=== PATIENT | female | born 1945 | race Caucasian/White ===

== ENCOUNTER 2017-01-13 21:50 | Emergency (ER) | payer MEDICARE ==
[2017-01-13 22:00] LABS: Glucose,Whole Blood 102 mg/dL (75-99)
[2017-01-13 22:08] VITALS: RESP 18
[2017-01-13 22:45] LABS: Basophils % (A) 0 %; CH 31.7; CHCM 32.2; Eosinophils # (A) 0.2 k/uL (0-0.7); Eosinophils % (A) 3 %; HCT 40.3 % (34.0-46.0); HDW 2.31; HGB 12.9 gm/dL (11.4-16.0); Luc # (Auto) 0.12; Luc % (Auto) 1; Lymphocytes # (A) 1.4 k/uL (1.0-4.8); Lymphocytes % (A) 16 %; MCH 31.5 pg (25.0-35.0); MCHC 31.9 g/dL (31.0-37.0); MCV 98.7 fL (80.0-100.0); Mean Platelet Volume 7.4; Monocytes # (A) 0.7 k/uL (0-1.0); Monocytes % (A) 8 %; Neutrophils # (A) 6.2 k/uL (1.3-7.7); Neutrophils % (A) 71 %; RBC 4.09 m/uL (3.80-5.40); RDW 13.6 % (11.5-15.5); WBC 8.7 k/uL (3.8-10.6); WBC (Perox) 8.93
[2017-01-13 22:55] LABS: ALT 32 U/L (9-52); AST 30 U/L (14-36); Alkaline Phosphatase 109 U/L (38-126); Amylase 33 U/L (30-110); Anion Gap 14 mmol/L; Blood Urea Nitrogen 17 mg/dL (7-17); Calcium 8.9 mg/dL (8.4-10.2); Carbon Dioxide 22 mmol/L (22-30); Chloride 97 mmol/L (98-107); Glucose 72 mg/dL (74-99); Magnesium 1.2 mg/dL (1.6-2.3); Non-African American GFR(MDRD) >60 (>60 ml/min/1.73 sqM); Potassium 3.8 mmol/L (3.5-5.1); Sodium 133 mmol/L (137-145); Total Bilirubin 0.4 mg/dL (0.2-1.3); Total Protein 6.5 g/dL (6.3-8.2)
[2017-01-13 22:58] LABS: Glucose,Whole Blood 73 mg/dL (75-99)
[2017-01-13 23:40] LABS: Glucose,Whole Blood 102 mg/dL (75-99)
--- NOTE | 2017-01-13 23:40 | ED ---
General Adult HPI - General Chief complaint: Recheck/Abnormal Lab/Rx Stated complaint: Hypoglycemia Time Seen by Provider: 01/13/17 22:10 Source: patient, EMS, RN notes reviewed Mode of arrival: EMS Limitations: no limitations - History of Present Illness Initial comments: This a 71-year-old female presents emergency via EMS chief complaint CVA. Patient is here with family states that they were driving the patient seemed to fall sleep but was unresponsive at that time. Patient was found to have a blood sugar of 40 patient was given an amp of dextrose at that time and patient became responsive. Patient states that she has no complaints at this time. She denies chest pain, shortness breath, fever, chills, headache or dizziness. Patient states she does not take any medications for diabetes at this time. Patient denies any new prescriptions states that she did not take any pills that she normally does not take. Patient states that she has had low blood sugar in the past but never to this extent. - Related Data Home Medications Medication Instructions Recorded Confirmed ALPRAZolam [Xanax] 0.25 mg PO TID 07/30/13 08/11/15 PARoxetine [Paxil] 20 mg PO DAILY 07/30/13 08/11/15 Ranitidine HCl 150 mg PO HS PRN 07/30/13 08/11/15 Simvastatin [Zocor] 60 mg PO DAILY 07/30/13 08/11/15 Aspirin EC [Ecotrin Low Dose] 81 mg PO DAILY 08/11/15 08/11/15 Cyclobenzaprine [Flexeril] 10 mg PO BID PRN 08/11/15 08/11/15 Docusate [Colace] 100 mg PO BID PRN 08/11/15 08/11/15 Folic Acid 0.8 mg PO DAILY 08/11/15 08/11/15 Hydrochlorothiazide 12.5 mg PO BID 08/11/15 08/11/15 Losartan [Cozaar] 25 mg PO DAILY 08/11/15 08/11/15 Metoprolol Tartrate [Lopressor] 25 mg PO BID 08/11/15 08/11/15 Ondansetron HCl [Zofran] 8 mg PO BID PRN 08/11/15 08/11/15 Potassium Chloride [Klor-Con 20] 20 meq PO DAILY 08/11/15 08/11/15 Prochlorperazine [Compazine] 10 mg PO TID 08/11/15 08/11/15 Ubidecarenone [Co Q-10] 100 mg PO DAILY 08/11/15 08/11/15 predniSONE 50 mg PO DAILY 08/11/15 08/11/15 traMADol HCL [Ultram] 50 mg PO BID PRN 08/11/15 08/11/15 Previous Rx's Medication Instructions Recorded Levofloxacin [Levaquin] 750 mg PO DAILY #7 tab 08/15/15 Allergies Allergy/AdvReac Type Severity Reaction Status Date / Time No Known Allergies Allergy Verified 08/11/15 21:36 Review of Systems ROS Statement: Those systems with pertinent positive or pertinent negative responses have been documented in the HPI. ROS Other: All systems not noted in ROS Statement are negative. Past Medical History Past Medical History: Cancer Additional Past Medical History / Comment(s): Hx diverticulitis Hx. arthritis Hx rt kidney cancer 2011, B-cell lymphoma, DVT- current. History of Any Multi-Drug Resistant Organisms: None Reported Past Surgical History: Hernia Repair, Hysterectomy Additional Past Surgical History / Comment(s): Hx Gastric bypass (1991) Hx left knee arthroscopy Hx cataracts bilat removed Past Anesthesia/Blood Transfusion Reactions: No Reported Reaction Past Psychological History: No Psychological Hx Reported, Anxiety, Depression Smoking Status: Never smoker Past Alcohol Use History: None Reported, Rare Past Drug Use History: None Reported General Exam Limitations: no limitations General appearance: alert, in no apparent distress Head exam: Present: atraumatic, normocephalic, normal inspection Eye exam: Present: normal appearance, PERRL, EOMI. Absent: scleral icterus, conjunctival injection, periorbital swelling ENT exam: Present: normal exam, normal oropharynx, mucous membranes moist, TM's normal bilaterally Neck exam: Present: normal inspection, full ROM. Absent: tenderness, meningismus, lymphadenopathy Respiratory exam: Present: normal lung sounds bilaterally. Absent: respiratory distress, wheezes, rales, rhonchi, stridor Cardiovascular Exam: Present: regular rate, normal rhythm, normal heart sounds. Absent: systolic murmur, diastolic murmur, rubs, gallop, clicks GI/Abdominal exam: Present: soft, normal bowel sounds. Absent: distended, tenderness, guarding, rebound, rigid Neurological exam: Present: alert, oriented X3, CN II-XII intact, reflexes normal. Absent: motor sensory deficit Psychiatric exam: Present: normal affect, normal mood Skin exam: Present: warm, dry, intact, normal color. Absent: rash Course Vital Signs 01/13/17 01/13/17 01/13/17 22:00 22:42 23:12 Temperature 97.6 F Pulse Rate 75 77 75 Respiratory 18 18 18 Rate Blood Pressure 184/84 178/80 184/81 O2 Sat by Pulse 100 100 99 Oximetry - Reevaluation(s) Reevaluation #1: 01/13/17 23:47 Patient family updated result at this time. She states she does feel improved. Did advised patient I will continue monitor and recheck her blood sugar. EKG Findings - EKG Comments: EKG Findings:: EKG performed at 22:33 normal sinus rhythm with rate of 72 QRS duration 88 QT/QTc 458/501 Medical Decision Making - Medical Decision Making 71-year-old female presented for hypoglycemic event. Patient has improved patient's blood sugar has stabilized. Family in the room states that he's had this issue because she does not eat and she did admit that she only ate a yogurt this morning and ate a small taco at + 4:30. Patient ate food here. patient's lab reviewed EKG reviewed. - Lab Data Result diagrams: 01/13/17 22:15 01/13/17 22:15 Lab Results 01/13/17 01/13/17 01/13/17 Range/Units 21:56 22:15 22:15 WBC 8.7 (3.8-10.6) k/uL RBC 4.09 (3.80-5.40) m/uL Hgb 12.9 (11.4-16.0) gm/dL Hct 40.3 (34.0-46.0) % MCV 98.7 (80.0-100.0) fL MCH 31.5 (25.0-35.0) pg MCHC 31.9 (31.0-37.0) g/dL RDW 13.6 (11.5-15.5) % Plt Count 242 (150-450) k/uL Neutrophils % 71 % Lymphocytes % 16 % Monocytes % 8 % Eosinophils % 3 % Basophils % 0 % Neutrophils # 6.2 (1.3-7.7) k/uL Lymphocytes # 1.4 (1.0-4.8) k/uL Monocytes # 0.7 (0-1.0) k/uL Eosinophils # 0.2 (0-0.7) k/uL Basophils # 0.0 (0-0.2) k/uL Sodium 133 L (137-145) mmol/L Potassium 3.8 (3.5-5.1) mmol/L Chloride 97 L (98-107) mmol/L Carbon Dioxide 22 (22-30) mmol/L Anion Gap 14 mmol/L BUN 17 (7-17) mg/dL Creatinine 0.90 (0.52-1.04) mg/dL Est GFR (MDRD) Af Amer >60 (>60 ml/min/1.73 sqM) Est GFR (MDRD) Non-Af >60 (>60 ml/min/1.73 sqM) Glucose 72 L (74-99) mg/dL POC Glucose (mg/dL) 102 H (75-99) mg/dL POC Glu Video Intern ID Doris Smith Calcium 8.9 (8.4-10.2) mg/dL Magnesium 1.2 L (1.6-2.3) mg/dL Total Bilirubin 0.4 (0.2-1.3) mg/dL AST 30 (14-36) U/L ALT 32 (9-52) U/L Alkaline Phosphatase 109 (38-126) U/L Troponin I (0.000-0.034) ng/mL Total Protein 6.5 (6.3-8.2) g/dL Albumin 4.0 (3.5-5.0) g/dL Amylase 33 (30-110) U/L Lipase 115 (23-300) U/L 01/13/17 01/13/17 01/13/17 Range/Units 22:15 22:54 23:36 WBC (3.8-10.6) k/uL RBC (3.80-5.40) m/uL Hgb (11.4-16.0) gm/dL Hct (34.0-46.0) % MCV (80.0-100.0) fL MCH (25.0-35.0) pg MCHC (31.0-37.0) g/dL RDW (11.5-15.5) % Plt Count (150-450) k/uL Neutrophils % % Lymphocytes % % Monocytes % % Eosinophils % % Basophils % % Neutrophils # (1.3-7.7) k/uL Lymphocytes # (1.0-4.8) k/uL Monocytes # (0-1.0) k/uL Eosinophils # (0-0.7) k/uL Basophils # (0-0.2) k/uL Sodium (137-145) mmol/L Potassium (3.5-5.1) mmol/L Chloride (98-107) mmol/L Carbon Dioxide (22-30) mmol/L Anion Gap mmol/L BUN (7-17) mg/dL Creatinine (0.52-1.04) mg/dL Est GFR (MDRD) Af Amer (>60 ml/min/1.73 sqM) Est GFR (MDRD) Non-Af (>60 ml/min/1.73 sqM) Glucose (74-99) mg/dL POC Glucose (mg/dL) 73 L 102 H (75-99) mg/dL POC Glu Video Intern Doris Rivera Tiffany Calcium (8.4-10.2) mg/dL Magnesium (1.6-2.3) mg/dL Total Bilirubin (0.2-1.3) mg/dL AST (14-36) U/L ALT (9-52) U/L Alkaline Phosphatase (38-126) U/L Troponin I <0.012 (0.000-0.034) ng/mL Total Protein (6.3-8.2) g/dL Albumin (3.5-5.0) g/dL Amylase (30-110) U/L Lipase (23-300) U/L 01/14/17 Range/Units 00:03 WBC (3.8-10.6) k/uL RBC (3.80-5.40) m/uL Hgb (11.4-16.0) gm/dL Hct (34.0-46.0) % MCV (80.0-100.0) fL MCH (25.0-35.0) pg MCHC (31.0-37.0) g/dL RDW (11.5-15.5) % Plt Count (150-450) k/uL Neutrophils % % Lymphocytes % % Monocytes % % Eosinophils % % Basophils % % Neutrophils # (1.3-7.7) k/uL Lymphocytes # (1.0-4.8) k/uL Monocytes # (0-1.0) k/uL Eosinophils # (0-0.7) k/uL Basophils # (0-0.2) k/uL Sodium (137-145) mmol/L Potassium (3.5-5.1) mmol/L Chloride (98-107) mmol/L Carbon Dioxide (22-30) mmol/L Anion Gap mmol/L BUN (7-17) mg/dL Creatinine (0.52-1.04) mg/dL Est GFR (MDRD) Af Amer (>60 ml/min/1.73 sqM) Est GFR (MDRD) Non-Af (>60 ml/min/1.73 sqM) Glucose (74-99) mg/dL POC Glucose (mg/dL) 115 H (75-99) mg/dL POC Glu Video Intern ID Syeda Perez Calcium (8.4-10.2) mg/dL Magnesium (1.6-2.3) mg/dL Total Bilirubin (0.2-1.3) mg/dL AST (14-36) U/L ALT (9-52) U/L Alkaline Phosphatase (38-126) U/L Troponin I (0.000-0.034) ng/mL Total Protein (6.3-8.2) g/dL Albumin (3.5-5.0) g/dL Amylase (30-110) U/L Lipase (23-300) U/L Disposition Clinical Impression: Hypoglycemia Disposition: HOME SELF-CARE Condition: Stable Instructions: Non-diabetic Hypoglycemia (ED) Additional Instructions: Please return to the Emergency Department if symptoms worsen or any other concerns. Referrals: Kandy Pires MD [Primary Care Provider] - 1-2 days Time of Disposition: 00:13
[2017-01-14 00:04] LABS: Glucose,Whole Blood 115 mg/dL (75-99)
[2017-01-14 00:20] VITALS: BP 159/70; PULSE 81; TEMP 97.8
== END 2017-01-14 00:29 | disposition home or self-care (01) ==
LOC: EC 21:50
DX: E16.2 Hypoglycemia, unspecified (principal); F32.9 Major depressive disorder, single episode, unspecified; F41.9 Anxiety disorder, unspecified; Z85.528 Personal history of other malignant neoplasm of kidney; Z85.72 Personal history of non-Hodgkin lymphomas; Z86.718 Personal history of other venous thrombosis and embolism; Z79.82 Long term (current) use of aspirin; Z79.52 Long term (current) use of systemic steroids; Z79.899 Other long term (current) drug therapy
CPT/HCPCS: 36415; 80053; 82150; 83690; 83735; 84484; 85025; 93005; 99285

== ENCOUNTER 2019-04-29 14:06 | Observation (INO) | payer MEDICARE ==
[2019-04-29 14:44] LABS: Glucose,Whole Blood 79 mg/dL (75-99)
--- NOTE | 2019-04-29 14:56 | ED ---
General Adult HPI - General Chief complaint: Recheck/Abnormal Lab/Rx Stated complaint: diabetic issue Time Seen by Provider: 04/29/19 14:43 Source: patient, EMS Mode of arrival: EMS Limitations: no limitations - History of Present Illness Initial comments: 74-year-old female that presents to emergency room today for evaluation after syncopal episode. Patient was sitting on her couch at home looking at iPad when family she had passed out. They called 911. Patient reports that she has had this happen one time in the past about 3 years ago. She does not have diagnosis of diabetes. She does report that she had oatmeal for breakfast this morning a round 9:00 and then had to [employer] 11:00. She reports that the last time that this happened she had a large food bolus and then a few hours later had a syncopal episode and hypoglycemia. Patient reports that she was checking her blood glucose levels for "a long time" after the syncopal episode 3 years ago, however has not been checking her sugars. She denies any headache or injury. Dizziness or lightheadedness. No vision changes or speech changes. Denies any nausea vomiting diarrhea or constipation. No urinary symptoms. No other complaints. The daughter in the room does relate that she witnessed the syncopal event. The patient and seemed confused she was cussing at her tablet and then she had a syncopal event. She was diaphoretic. There was concern for the history of the hypoglycemic event they checked her blood glucose level and it was 30. Daughter also relates that the patient was recently seen a railroad hand and had medication adjustment. She does take Lasix. She has a history of a nephrectomy in the past. She does not know her baseline kidney function. - Related Data Home Medications Medication Instructions Recorded Confirmed ALPRAZolam [Xanax] 0.25 mg PO TID 07/30/13 04/29/19 PARoxetine [Paxil] 20 mg PO HS 07/30/13 04/29/19 Simvastatin [Zocor] 40 mg PO DAILY 07/30/13 04/29/19 Cyclobenzaprine [Flexeril] 10 mg PO BID PRN 08/11/15 04/29/19 Docusate [Colace] 100 mg PO BID PRN 08/11/15 04/29/19 Folic Acid 0.8 mg PO DAILY 08/11/15 04/29/19 traMADol HCL [Ultram] 50 mg PO BID PRN 08/11/15 04/29/19 Calcium Carbonate/Vitamin D3 1 tab PO DAILY 04/29/19 04/29/19 [Calcium 500-Vit D3 600 Tablet] Carvedilol 12.5 mg PO BID PRN 04/29/19 04/29/19 Furosemide [Lasix] 40 mg PO DAILY PRN 04/29/19 04/29/19 Lisinopril [Zestril] 5 mg PO DAILY 04/29/19 04/29/19 Multivitamins, Thera [Multivitamin 1 tab PO DAILY 04/29/19 04/29/19 (formulary)] Vitamin B Complex 1 tab PO DAILY 04/29/19 04/29/19 amLODIPine [Norvasc] 5 mg PO DAILY 04/29/19 04/29/19 Allergies Allergy/AdvReac Type Severity Reaction Status Date / Time No Known Allergies Allergy Verified 04/29/19 20:13 Review of Systems ROS Statement: Those systems with pertinent positive or pertinent negative responses have been documented in the HPI. ROS Other: All systems not noted in ROS Statement are negative. Past Medical History Past Medical History: Cancer Additional Past Medical History / Comment(s): Hx diverticulitis Hx. arthritis Hx rt kidney cancer 2011, B-cell lymphoma, DVT- current. History of Any Multi-Drug Resistant Organisms: None Reported Past Surgical History: Hernia Repair, Hysterectomy Additional Past Surgical History / Comment(s): Hx Gastric bypass (1991) Hx left knee arthroscopy Hx cataracts bilat removed Past Anesthesia/Blood Transfusion Reactions: No Reported Reaction Past Psychological History: Anxiety, Depression Smoking Status: Never smoker Past Alcohol Use History: Rare Past Drug Use History: None Reported General Exam Limitations: no limitations General appearance: alert, in no apparent distress Head exam: Present: atraumatic, normocephalic Eye exam: Present: normal appearance ENT exam: Present: normal exam, normal oropharynx Neck exam: Present: normal inspection Respiratory exam: Present: normal lung sounds bilaterally Cardiovascular Exam: Present: regular rate, normal rhythm, normal heart sounds GI/Abdominal exam: Present: soft, normal bowel sounds Extremities exam: Present: normal inspection, full ROM Back exam: Present: normal inspection Neurological exam: Present: alert, altered, oriented X3 Psychiatric exam: Present: normal affect, normal mood Skin exam: Present: warm, dry, intact Course Vital Signs 04/29/19 04/29/19 04/29/19 14:12 19:48 20:00 Temperature 96.8 F L 97.6 F 97.8 F Pulse Rate 73 92 Pulse Rate [ 94 Pulse Oximetery ] Respiratory 18 17 18 Rate Blood Pressure 129/67 154/83 Blood Pressure 139/88 [Left Arm] O2 Sat by Pulse 100 99 100 Oximetry - Reevaluation(s) Reevaluation #1: 04/30/2019 patient was resting in no distress. Discussed the results thus far, waiting for creatinine. Reevaluation #2: 04/29/2019 patient resting in no distress. I discussed all results. I advised that I would like to admit her to the hospital secondary to syncopal event. I did discuss with the patient's baseline creatinine, she is not aware of what her creatinine is baseline. She does state that she has seen a refrigerator repairman in the past and been told that she has stage I renal disease. She verbalized understanding and agreement. Reevaluation #3: 04/29/2019 I did discuss with patient that she has admitted the hospital. Medical Decision Making - Medical Decision Making 74-year-old female presents the emergency room today for evaluation of syncopal event. Patient was found to be hypoglycemic. She had a blood glucose level and was found to be 30 by the family. She was subsequently brought to the emergency room. She was given D10 on the way to the emergency room and she is feeling improved on arrival. She did have a sandwich. She was feeling improved after this. Patient has no history of diabetes, she did have a hypoglycemic episode about 3 years ago. Patient has a history of a nephrectomy on the right. Patient was recently prescribed Lasix by cardiology. She also had her medications adjusted, she's been taking Coreg which is new to her. Patient reports history of stage I renal disease, however today her creatinine was found to be 2.75 and there is nothing to compare this to. Secondary to the syncopal event with hypoglycemia, hyperglycemia likely causing the syncopal event patient will be admitted to the hospital. No history of diabetes, will continue to monitor blood glucose levels here in the hospital. - Lab Data Result diagrams: 04/29/19 15:20 04/29/19 15:20 Lab Results 04/29/19 04/29/1920 Range/Units 14:43 15:20 15:20 WBC 5.6 (3.8-10.6) k/uL RBC 3.80 (3.80-5.40) m/uL Hgb 11.2 L (11.4-16.0) gm/dL Hct 35.9 (34.0-46.0) % MCV 94.5 (80.0-100.0) fL MCH 29.5 (25.0-35.0) pg MCHC 31.2 (31.0-37.0) g/dL RDW 12.9 (11.5-15.5) % Plt Count 318 (150-450) k/uL Neutrophils % 68 % Lymphocytes % 19 % Monocytes % 6 % Eosinophils % 4 % Basophils % 0 % Neutrophils # 3.8 (1.3-7.7) k/uL Lymphocytes # 1.0 (1.0-4.8) k/uL Monocytes # 0.3 (0-1.0) k/uL Eosinophils # 0.2 (0-0.7) k/uL Basophils # 0.0 (0-0.2) k/uL Sodium 138 (137-145) mmol/L Potassium 4.1 (3.5-5.1) mmol/L Chloride 106 (98-107) mmol/L Carbon Dioxide 23 (22-30) mmol/L Anion Gap 9 mmol/L BUN 61 H (7-17) mg/dL Creatinine 2.75 H (0.52-1.04) mg/dL Est GFR (CKD-EPI)AfAm 19 (>60 ml/min/1.73 sqM) Est GFR (CKD-EPI)NonAf 16 (>60 ml/min/1.73 sqM) Glucose 105 H (74-99) mg/dL POC Glucose (mg/dL) 79 (75-99) mg/dL POC Glu Maintenance Instructor ID Shreya Ayala Calcium 8.4 (8.4-10.2) mg/dL Troponin I (0.000-0.034) ng/mL Urine Color Urine Appearance (Clear) Urine pH (5.0-8.0) Ur Specific [place] (1.001-1.035) Urine Protein (Negative) Urine Glucose (UA) (Negative) Urine Ketones (Negative) Urine Blood (Negative) Urine Nitrite (Negative) Urine Bilirubin (Negative) Urine Urobilinogen (<2.0) mg/dL Ur Leukocyte Esterase (Negative) 04/29/19 04/29/19 04/29/19 Range/Units 15:20 15:20 16:48 WBC (3.8-10.6) k/uL RBC (3.80-5.40) m/uL Hgb (11.4-16.0) gm/dL Hct (34.0-46.0) % MCV (80.0-100.0) fL MCH (25.0-35.0) pg MCHC (31.0-37.0) g/dL RDW (11.5-15.5) % Plt Count (150-450) k/uL Neutrophils % % Lymphocytes % % Monocytes % % Eosinophils % % Basophils % % Neutrophils # (1.3-7.7) k/uL Lymphocytes # (1.0-4.8) k/uL Monocytes # (0-1.0) k/uL Eosinophils # (0-0.7) k/uL Basophils # (0-0.2) k/uL Sodium (137-145) mmol/L Potassium (3.5-5.1) mmol/L Chloride (98-107) mmol/L Carbon Dioxide (22-30) mmol/L Anion Gap mmol/L BUN (7-17) mg/dL Creatinine (0.52-1.04) mg/dL Est GFR (CKD-EPI)AfAm (>60 ml/min/1.73 sqM) Est GFR (CKD-EPI)NonAf (>60 ml/min/1.73 sqM) Glucose (74-99) mg/dL POC Glucose (mg/dL) 116 H (75-99) mg/dL POC Glu Maintenance Instructor ID Sandra Monson Calcium (8.4-10.2) mg/dL Troponin I <0.012 (0.000-0.034) ng/mL Urine Color Light Yellow Urine Appearance Clear (Clear) Urine pH 5.0 (5.0-8.0) Ur Specific [place] 1.008 (1.001-1.035) Urine Protein Negative (Negative) Urine Glucose (UA) Negative (Negative) Urine Ketones Negative (Negative) Urine Blood Negative (Negative) Urine Nitrite Negative (Negative) Urine Bilirubin Negative (Negative) Urine Urobilinogen <2.0 (<2.0) mg/dL Ur Leukocyte Esterase Negative (Negative) 04/29/19 Range/Units 17:01 WBC (3.8-10.6) k/uL RBC (3.80-5.40) m/uL Hgb (11.4-16.0) gm/dL Hct (34.0-46.0) % MCV (80.0-100.0) fL MCH (25.0-35.0) pg MCHC (31.0-37.0) g/dL RDW (11.5-15.5) % Plt Count (150-450) k/uL Neutrophils % % Lymphocytes % % Monocytes % % Eosinophils % % Basophils % % Neutrophils # (1.3-7.7) k/uL Lymphocytes # (1.0-4.8) k/uL Monocytes # (0-1.0) k/uL Eosinophils # (0-0.7) k/uL Basophils # (0-0.2) k/uL Sodium (137-145) mmol/L Potassium (3.5-5.1) mmol/L Chloride (98-107) mmol/L Carbon Dioxide (22-30) mmol/L Anion Gap mmol/L BUN (7-17) mg/dL Creatinine (0.52-1.04) mg/dL Est GFR (CKD-EPI)AfAm (>60 ml/min/1.73 sqM) Est GFR (CKD-EPI)NonAf (>60 ml/min/1.73 sqM) Glucose (74-99) mg/dL POC Glucose (mg/dL) 128 H (75-99) mg/dL POC Glu Maintenance Instructor ID Shreya Ayala Calcium (8.4-10.2) mg/dL Troponin I (0.000-0.034) ng/mL Urine Color Urine Appearance (Clear) Urine pH (5.0-8.0) Ur Specific [place] (1.001-1.035) Urine Protein (Negative) Urine Glucose (UA) (Negative) Urine Ketones (Negative) Urine Blood (Negative) Urine Nitrite (Negative) Urine Bilirubin (Negative) Urine Urobilinogen (<2.0) mg/dL Ur Leukocyte Esterase (Negative) - EKG Data EKG shows normal: sinus rhythm EKG Comments: EKG completed at 1550. Heart rate 80. Normal sinus rhythm with first-degree block. [place] 222 QRS 88 QT/QTc 422/486, normal axis. No ST elevation or depression noted. Disposition Clinical Impression: Syncope, Renal failure, acute, Hypoglycemia Disposition: ADMITTED IP TO THIS HOSP Condition: Stable Is patient prescribed a controlled substance at d/c from ED?: No When asked, does pt state using other controlled substances?: No
[2019-04-29 15:24] LABS: Glucose,Whole Blood 116 mg/dL (75-99)
[2019-04-29 15:32] LABS: Basophils % (A) 0 %; Eosinophils # (A) 0.2 k/uL (0-0.7); Eosinophils % (A) 4 %; HCT 35.9 % (34.0-46.0); HGB 11.2 gm/dL (11.4-16.0); Lymphocytes % (A) 19 %; MCH 29.5 pg (25.0-35.0); MCHC 31.2 g/dL (31.0-37.0); MCV 94.5 fL (80.0-100.0); Mean Platelet Volume 7.1; Monocytes # (A) 0.3 k/uL (0-1.0); Monocytes % (A) 6 %; Neutrophils # (A) 3.8 k/uL (1.3-7.7); Neutrophils % (A) 68 %; Platelet Count 318 k/uL (150-450); RDW 12.9 % (11.5-15.5); WBC 5.6 k/uL (3.8-10.6)
[2019-04-29 15:42] LABS: Calcium 8.4 mg/dL (8.4-10.2); Potassium 4.1 mmol/L (3.5-5.1)
[2019-04-29 17:01] LABS: Appearance,Urine Clear (Clear); Bilirubin,Urine Negative (Negative); Blood,Urine Negative (Negative); Color,Urine Light Yellow; Glucose,Urine (UA) Negative (Negative); Ketones,Urine Negative (Negative); Leukocyte Esterase,Urine Negative (Negative); Nitrite,Urine Negative (Negative); Protein,Urine Negative (Negative); Specific Gravity,Urine 1.008 (1.001-1.035); Urobilinogen,Urine <2.0 mg/dL (<2.0)
[2019-04-29 17:03] LABS: Glucose,Whole Blood 128 mg/dL (75-99)
[2019-04-29] MEDS ORDERED: ONDANSETRON 4 MG/2 ML VIAL IVP PRN (18:06)
[2019-04-29] MEDS ORDERED: NALOXONE 0.4 MG/ML 1 ML VIAL IV PRN (18:06)
[2019-04-29] MEDS ORDERED: SODIUM CHLORIDE 0.9% 1,000 ML IV SCH (18:15)
[2019-04-29] MEDS ORDERED: traMADol 50 MG TAB PO PRN (21:44)
[2019-04-29] MEDS ORDERED: CARVEDILOL 12.5 MG TAB PO PRN (21:44)
[2019-04-29] MEDS ORDERED: DOCUSATE 100 MG CAP PO PRN (21:44)
[2019-04-29] MEDS ORDERED: CYCLOBENZAPRINE 10 MG TAB PO PRN (21:44)
[2019-04-29 22:12] LABS: Glucose,Whole Blood 127 mg/dL (75-99)
[2019-04-29] MEDS: ALPRAZolam 0.25 MG TAB PO SCH (22:25)
[2019-04-29] MEDS: PARoxetine 20 MG TAB PO SCH (22:25)
[2019-04-29] MEDS: amLODIPine 5 MG TAB PO SCH (22:26)
[2019-04-30 06:21] LABS: Calcium 8.6 mg/dL (8.4-10.2); Potassium 4.6 mmol/L (3.5-5.1)
[2019-04-30 06:34] LABS: Glucose,Whole Blood 81 mg/dL (75-99)
[2019-04-30] MEDS ORDERED: NON FORMULARY DRUG (Vitamin B Complex [Vitamin B Complex] 1 TAB) PO SCH (09:00)
[2019-04-30] MEDS: ATORVASTATIN 20 MG TAB PO SCH (09:40)
[2019-04-30] MEDS: amLODIPine 5 MG TAB PO SCH (09:40)
[2019-04-30] MEDS: MULTIVITAMINS, THERA 1 EACH TAB PO SCH (09:40)
[2019-04-30] MEDS: ALPRAZolam 0.25 MG TAB PO SCH ×3 (09:40→22:33)
[2019-04-30] MEDS: CALCIUM CARB-VIT D 500MG-200UN 1 EACH TAB PO SCH (09:40)
[2019-04-30] MEDS: FOLIC ACID 1 MG TAB PO SCH (09:41)
[2019-04-30 11:36] LABS: Glucose,Whole Blood 75 mg/dL (75-99)
[2019-04-30] MEDS: SODIUM CHLORIDE 0.9% 1,000 ML IV SCH ×2 (12:04→22:34)
--- NOTE | 2019-04-30 13:29 | P.HPIM ---
History of Present Illness 74-year-old female came in after a syncopal episode patient was sitting and looking at her eye pad and passed out after that patient denied any fever chills patient denied any chest pain, EKG showed some nonspecific ST-T wave changes in the septal leads. Echocardiogram will be obtained. Patient denied any history of any start failure. Patient appears to be hypovolemic patient had elevated serum creatinine of 2.8 to patient has a E kidney one of the kidney was removed because of her kidney cancer. Patient baseline creatinine appears to be around 2. Patient is on lisinopril which will be held patient was started on IV flui ds. Patient is also found to be hypoglycemic unsure of the exact etiology a lot and a C-peptide level insulin level, cortisol level and the TSH. Review of Systems REVIEW OF SYSTEMS: CONSTITUTIONAL: No fever, no malaise, no fatigue. HEENT: No recent visual problems or hearing problems. Denied any sore throat. CARDIOVASCULAR: No chest pain, orthopnea, PND, no palpitations, PULMONARY: No shortness of breath, no cough, no hemoptysis. GASTROINTESTINAL: No diarrhea, no nausea, no vomiting, no abdominal pain. NEUROLOGICAL: No headaches, no weakness, no numbness. HEMATOLOGICAL: Denies any bleeding or petechiae. GENITOURINARY: Denies any burning micturition, frequency, or urgency. MUSCULOSKELETAL/RHEUMATOLOGICAL: Denies any joint pain, swelling, or any muscle pain. ENDOCRINE: Denies any polyuria or polydipsia. The rest of the 14-point review of systems is negative. Past Medical History Past Medical History: Cancer Additional Past Medical History / Comment(s): Hx diverticulitis Hx. arthritis Hx rt kidney cancer 2011, B-cell lymphoma, DVT- current. History of Any Multi-Drug Resistant Organisms: None Reported Past Surgical History: Hernia Repair, Hysterectomy Additional Past Surgical History / Comment(s): Hx Gastric bypass (1991) Hx left knee arthroscopy Hx cataracts bilat removed Past Anesthesia/Blood Transfusion Reactions: No Reported Reaction Past Psychological History: Anxiety, Depression Smoking Status: Never smoker Past Alcohol Use History: Rare Past Drug Use History: None Reported Medications and Allergies Home Medications Medication Instructions Recorded Confirmed Type ALPRAZolam [Xanax] 0.25 mg PO TID 07/30/13 04/29/19 History PARoxetine [Paxil] 20 mg PO HS 07/30/13 04/29/19 History Simvastatin [Zocor] 40 mg PO DAILY 07/30/13 04/29/19 History Cyclobenzaprine [Flexeril] 10 mg PO BID PRN 08/11/15 04/29/19 History Docusate [Colace] 100 mg PO BID PRN 08/11/15 04/29/19 History Folic Acid 0.8 mg PO DAILY 08/11/15 04/29/19 History traMADol HCL [Ultram] 50 mg PO BID PRN 08/11/15 04/29/19 History Calcium Carbonate/Vitamin D3 1 tab PO DAILY 04/29/19 04/29/19 History [Calcium 500-Vit D3 600 Tablet] Carvedilol 12.5 mg PO BID 04/29/19 04/29/19 History Furosemide [Lasix] 40 mg PO DAILY PRN 04/29/19 04/29/19 History Lisinopril [Zestril] 5 mg PO DAILY 04/29/19 04/29/19 History Multivitamins, Thera [Multivitamin 1 tab PO DAILY 04/29/19 04/29/19 History (formulary)] Vitamin B Complex 1 tab PO DAILY 04/29/19 04/29/19 History amLODIPine [Norvasc] 5 mg PO DAILY 04/29/19 04/29/19 History Metoprolol Tartrate [Lopressor] 50 mg PO BID 04/30/19 04/30/19 History Allergies Allergy/AdvReac Type Severity Reaction Status Date / Time No Known Allergies Allergy Verified 04/29/19 20:13 Physical Exam Vitals: Vital Signs Temp Pulse Pulse Resp BP BP BP 04/30/19 11:03 97.7 F 90 18 128/79 04/30/19 07:00 97.4 F L 104 H 18 163/91 04/30/19 04:00 97.7 F 86 18 118/74 04/29/19 23:53 97.7 F 81 18 132/78 04/29/19 23:48 18 04/29/19 21:10 94 18 04/29/19 20:00 97.8 F 94 18 139/88 04/29/19 19:48 97.6 F 92 17 154/83 04/29/19 14:12 96.8 F L 73 18 129/67 Pulse Ox 04/30/19 11:03 99 04/30/19 07:00 99 04/30/19 04:00 98 04/29/19 23:53 98 04/29/19 23:48 04/29/19 21:10 04/29/19 20:00 100 04/29/19 19:48 99 04/29/19 14:12 100 Intake and Output 04/29/19 04/30/19 04/30/19 22:59 06:59 14:59 Intake Total 560 Balance 560 Intake: Oral 360 Other 200 Other: Voiding Method Toilet # Voids 1 1 Weight 80.739 kg 81.647 kg PHYSICAL EXAMINATION: GENERAL: The patient is alert and oriented x3, not in any acute distress. Well developed, well nourished. HEENT: Pupils are round and equally reacting to light. EOMI. No scleral icterus. No conjunctival pallor. Normocephalic, atraumatic. No pharyngeal erythema. No thyromegaly. CARDIOVASCULAR: S1 and S2 present. No murmurs, rubs, or gallops. PULMONARY: Chest is clear to auscultation, no wheezing or crackles. ABDOMEN: Soft, nontender, nondistended, normoactive bowel sounds. No palpable organomegaly. MUSCULOSKELETAL: No joint swelling or deformity. EXTREMITIES: No cyanosis, clubbing, or pedal edema. NEUROLOGICAL: Gross neurological examination did not reveal any focal deficits. SKIN: No rashes. Results CBC & Chem 7: 04/29/19 15:20 04/30/19 05:37 Labs: Abnormal Lab Results - Last 24 Hours (Table) 04/29/19 04/29/19 04/29/19 Range/Units 15:20 15:20 15:20 Hgb 11.2 L (11.4-16.0) gm/dL BUN 61 H (7-17) mg/dL Creatinine 2.75 H (0.52-1.04) mg/dL Glucose 105 H (74-99) mg/dL POC Glucose (mg/dL) 116 H (75-99) mg/dL 04/29/19 04/29/19 04/30/19 Range/Units 17:01 22:07 05:37 Hgb (11.4-16.0) gm/dL BUN 60 H (7-17) mg/dL Creatinine 2.82 H (0.52-1.04) mg/dL Glucose (74-99) mg/dL POC Glucose (mg/dL) 128 H 127 H (75-99) mg/dL Thrombosis Risk Factor Assmnt - Choose All That Apply Any of the Below Risk Factors Present?: Yes Each Factor Represents 1 point: Obesity (BMI >25) Other Risk Factors: Yes Each Risk Factor Represents 2 Points: Age 61-74 years Each Risk Factor Represents 3 Points: History of DVT/PE Other congenital or acquired thrombophilia - If yes, enter type in comment: No Thrombosis Risk Factor Assessment Total Risk Factor Score: 6 Thrombosis Risk Factor Assessment Level: High Risk Assessment and Plan Plan: Syncope: Possible causes being hypovolemia leading to acute renal failure and dehydration intake, failure patient doesn't have any diarrhea. Patient's ERNESTINE inhibitor will be held patient was started on IV fluids. Echocardiogram will be obtained to rule out any valvular problems patient the also had some nonspecific ST-T wave changes, we'll look for any wall motion abnormalities on the echo. Hypoglycemia may be contributing to her symptoms although patient is not on any hypoglycemic agents will do workup for hypoglycemia as mentioned above Acute renal failure: Patient was started on IV fluids I believe patient has renal azotemia lisinopril will be held as mentioned above Possible chronic kidney disease from nephrectomy chronic kidney disease stage III -Hypoglycemia etiology is not clear workup for hypoglycemia as mentioned in the history -Renal cancer status post nephrectomy hypertension -Chronic low back -Hyperlipidemia
[2019-04-30 16:37] LABS: Glucose,Whole Blood 71 mg/dL (75-99)
[2019-04-30] MEDS: CARVEDILOL 12.5 MG TAB PO SCH (17:02)
[2019-04-30 20:39] LABS: Glucose,Whole Blood 101 mg/dL (75-99)
[2019-04-30] MEDS: PARoxetine 20 MG TAB PO SCH (22:33)
[2019-05-01] MEDS: SODIUM CHLORIDE 0.9% 1,000 ML IV SCH (03:50)
[2019-05-01 07:36] VITALS: RESP 18; TEMP 97.4
[2019-05-01] MEDS: FOLIC ACID 1 MG TAB PO SCH (08:46)
[2019-05-01] MEDS: MULTIVITAMINS, THERA 1 EACH TAB PO SCH (08:46)
[2019-05-01] MEDS: amLODIPine 5 MG TAB PO SCH (08:46)
[2019-05-01] MEDS: CARVEDILOL 12.5 MG TAB PO SCH (08:46)
[2019-05-01] MEDS: ALPRAZolam 0.25 MG TAB PO SCH (08:46)
[2019-05-01] MEDS: CALCIUM CARB-VIT D 500MG-200UN 1 EACH TAB PO SCH (08:46)
[2019-05-01] MEDS: ATORVASTATIN 20 MG TAB PO SCH (08:46)
[2019-05-01 11:11] VITALS: BP 121/80; PULSE 78
[2019-05-01 11:39] LABS: Glucose,Whole Blood 73 mg/dL (75-99)
--- NOTE | 2019-05-01 11:52 | ECHOF ---
Referral Reason:syncope MEASUREMENTS -------- HEIGHT: 152.4 cm WEIGHT: 75.8 kg BP: RVIDd: 4.0 cm (< 3.3) IVSd: 0.8 cm (0.6 - 1.1) LVIDd: 3.9 cm (3.9 - 5.3) LVPWd: 1.5 cm (0.6 - 1.1) IVSs: 1.3 cm LVIDs: 3.4 cm LVPWs: 1.4 cm LA Diam: 4.4 cm (2.7 - 3.8) LAESV Index (A-L): 30.34 ml/m Ao Diam: 3.1 cm (2.0 - 3.7) AV Cusp: 1.8 cm (1.5 - 2.6) LA Diam: 4.1 cm (2.7 - 3.8) MV EXCURSION: 20.824 mm (> 18.000) MV EF SLOPE: 109 mm/s (70 - 150) EPSS: 1.4 cm MV E Mark: 0.71 m/s MV DecT: 235 ms MV A Mark: 0.97 m/s MV E/A Ratio: 0.73 RAP: 5.00 mmHg RVSP: 25.06 mmHg FINDINGS -------- Sinus rhythm. This was a technically good study. LV size, wall thickness and systolic function are normal, with an EF greater than 55%. The left helen tricular size is normal. The diastolic filling pattern is normal for the age of the patient 15.24. The right ventricle is normal in size. The left atrium is mildly dilated. LA is midly dilated 29-33ml/m2. The right atrial size is normal. There is mild aortic valve sclerosis. Mild mitral annular calcification present. Mild mitral regurgitation is present. Mild tricuspid regurgitation present. Right ventricular systolic pressure is normal at < 35 mmHg. There is no evidence of pulmonary hypertension. There is no pulmonic regurgitation present. The aortic root size is normal. There is no pericardial effusion. CONCLUSIONS -------- 1. Sinus rhythm. 2. This was a technically good study. 3. LV size, wall thickness and systolic function are normal, with an EF greater than 55%. 4. The left ventricular size is normal. 5. The diastolic filling pattern is normal for the age of the patient 15.24 6. The right ventricle is normal in size. 7. The left atrium is mildly dilated. 8. LA is midly dilated 29-33ml/m2. 9. The right atrial size is normal. 10. There is mild aortic valve sclerosis. 11. Mild mitral annular calcification present. 12. Mild mitral regurgitation is present. 13. Mild tricuspid regurgitation present. 14. Right ventricular systolic pressure is normal at < 35 mmHg. 15. There is no evidence of pulmonary hypertension. 16. There is no pulmonic regurgitation present. 17. The aortic root size is normal. 18. There is no pericardial effusion. DRYWALL HANGER: Sadia Carr RDCS
--- NOTE | 2019-05-01 12:41 | P.DS ---
Providers Date of admission: 04/29/19 18:04 Attending physician: Jessie Foley Primary care physician: Kandy [facility] Course: 74-year-old female came in after a syncopal episode patient was sitting and looking at her eye pad and passed out after that patient denied any fever chills patient denied any chest pain, EKG showed some nonspecific ST-T wave changes in the septal leads. Echocardiogram will be obtained. Patient denied any history of any start failure. Patient appears to be hypovolemic patient had elevated serum creatinine of 2.8 to patient has a E kidney one of the kidney was removed because of her kidney cancer. Patient baseline creatinine appears to be around 2. Patient is on lisinopril which will be held patient was started on IV fluids. Patient is also found to be hypoglycemic unsure of the exact etiology a lot and a C-peptide level insulin level, cortisol level and the TSH. 05/01/2019 Patient's syncope may be related to hypoglycemia the etiology of hypoglycemia is not clear all the workup including the TSH cortisol, C-peptide level and insulin level are all within normal limits patient denies using any sulfonylureas. Patient was asked to take small frequent meals patient will be discharged today there may be a competent high of hypotension that may have contributed to her symptoms her lisinopril will be held probably not a great idea when she has 1 kidney, if her blood pressure goes up as an outpatient amlodipine dose can be increased patient was asked to closely follow up with the family dentist patient will be referred to endocrinology because of hypoglycemia which I cannot really explain at this time. Hypercortisolism or hypoadrenalism cannot be completely ruled out may patient may end up needing cosyntropin stimulation test as an outpatient. Patient blood sugars doesn't drop as an outpatient may not need any further testing regarding her renal failure I do not have the repeat basic metabolic profile available yet I'm expecting her renal failure to improve patient has unilateral kidney isolated believe kidney function can be better than what it is right now her serum creatinine is 2.8 now. As mentioned above awaiting basic metabolic profile and also awaiting echocardiogram I don't see any wall motion abnormalities R any other valvular problems patient will be discharged after these 2 tests PHYSICAL EXAMINATION: GENERAL: The patient is alert and oriented x3, not in any acute distress. Well developed, well nourished. HEENT: Pupils are round and equally reacting to light. EOMI. No scleral icterus. No conjunctival pallor. Normocephalic, atraumatic. No pharyngeal erythema. No thyromegaly. CARDIOVASCULAR: S1 and S2 present. No murmurs, rubs, or gallops. PULMONARY: Chest is clear to auscultation, no wheezing or crackles. ABDOMEN: Soft, nontender, nondistended, normoactive bowel sounds. No palpable organomegaly. MUSCULOSKELETAL: No joint swelling or deformity. EXTREMITIES: No cyanosis, clubbing, or pedal edema. NEUROLOGICAL: Gross neurological examination did not reveal any focal deficits. SKIN: No rashes. Please refer to HPI for rest of the medical problems and hospital physician course Patient Condition at Discharge: Stable Plan - Discharge Summary Discharge Rx Participant: No New Discharge Prescriptions: Continue ALPRAZolam [Xanax] 0.25 mg PO TID PARoxetine [Paxil] 20 mg PO HS Simvastatin [Zocor] 40 mg PO DAILY Folic Acid 0.8 mg PO DAILY Docusate [Colace] 100 mg PO BID PRN PRN Reason: Constipation Cyclobenzaprine [Flexeril] 10 mg PO BID PRN PRN Reason: Pain traMADol HCL [Ultram] 50 mg PO BID PRN PRN Reason: Pain Multivitamins, Thera [Multivitamin (formulary)] 1 tab PO DAILY Vitamin B Complex 1 tab PO DAILY Furosemide [Lasix] 40 mg PO DAILY PRN PRN Reason: Edema amLODIPine [Norvasc] 5 mg PO DAILY Carvedilol 12.5 mg PO BID Calcium Carbonate/Vitamin D3 [Calcium 500-Vit D3 600 Tablet] 1 tab PO DAILY Discontinued Lisinopril [Zestril] 5 mg PO DAILY Metoprolol Tartrate [Lopressor] 50 mg PO BID Discharge Medication List ALPRAZolam [Xanax] 0.25 mg PO TID 07/30/13 [History] PARoxetine [Paxil] 20 mg PO HS 07/30/13 [History] Simvastatin [Zocor] 40 mg PO DAILY 07/30/13 [History] Cyclobenzaprine [Flexeril] 10 mg PO BID PRN 08/11/15 [History] Docusate [Colace] 100 mg PO BID PRN 08/11/15 [History] Folic Acid 0.8 mg PO DAILY 08/11/15 [History] traMADol HCL [Ultram] 50 mg PO BID PRN 08/11/15 [History] Calcium Carbonate/Vitamin D3 [Calcium 500-Vit D3 600 Tablet] 1 tab PO DAILY 04/29/19 [History] Carvedilol 12.5 mg PO BID 04/29/19 [History] Furosemide [Lasix] 40 mg PO DAILY PRN 04/29/19 [History] Multivitamins, Thera [Multivitamin (formulary)] 1 tab PO DAILY 04/29/19 [History] Vitamin B Complex 1 tab PO DAILY 04/29/19 [History] amLODIPine [Norvasc] 5 mg PO DAILY 04/29/19 [History] Follow up Appointment(s)/Referral(s): Estiven Erickson MD [REFERRING] - 1 Week Kandy Pires MD [Primary Care Provider] - 05/05/19 12:15 pm Patient Instructions/Handouts: Syncope (DC) Activity/Diet/Wound Care/Special Instructions: Please follow up with family dentist within a week. Primary physician needs to refer to continuous dryout operator helper, please have Dr Pires make a referral. Discharge Disposition: HOME SELF-CARE
[2019-05-01 12:52] LABS: Calcium 8.9 mg/dL (8.4-10.2)
== END 2019-05-01 14:52 | disposition home or self-care (01) ==
LOC: EC 14:06 → 1SOBS 18:04
PROVIDERS: ADMIT Hospitalist; ATTEND Hospitalist
DX: R55 Syncope and collapse (principal); N17.9 Acute kidney failure, unspecified; E16.2 Hypoglycemia, unspecified; Z85.528 Personal history of other malignant neoplasm of kidney; Z90.5 Acquired absence of kidney; I10 Essential (primary) hypertension; G89.29 Other chronic pain; M54.9 Dorsalgia, unspecified; E78.5 Hyperlipidemia, unspecified; K57.90 Diverticulosis of intestine, part unspecified, without perforation or abscess without bleeding; M19.90 Unspecified osteoarthritis, unspecified site; I82.409 Acute embolism and thrombosis of unspecified deep veins of unspecified lower extremity; F41.9 Anxiety disorder, unspecified; F32.9 Major depressive disorder, single episode, unspecified; I08.3 Combined rheumatic disorders of mitral, aortic and tricuspid valves; E66.9 Obesity, unspecified; Z68.35 Body mass index [BMI] 35.0-35.9, adult; Z79.899 Other long term (current) drug therapy; Z79.891 Long term (current) use of opiate analgesic; Z85.72 Personal history of non-Hodgkin lymphomas; Z98.890 Other specified postprocedural states; Z90.710 Acquired absence of both cervix and uterus; Z98.84 Bariatric surgery status; Z98.42 Cataract extraction status, left eye; Z98.41 Cataract extraction status, right eye
CPT/HCPCS: 96360; 96361; 99285; 36415; 93005; 93306; 80048 ×3; 84443; 82533; 84484; 85025; 81003; 83525; 84681; G0378 ×3

== ENCOUNTER → 2019-06-03 | Outpatient (CLI) | payer MEDICARE ==
[2019-06-03 17:05] VITALS: BMI 33.0
== END | disposition home or self-care (01) ==
LOC: DBWHC3 13:05
PROVIDERS: ATTEND Internal Medicine Nephrology
DX: N18.3 Chronic kidney disease, stage 3 (moderate) (principal)
CPT/HCPCS: 97802

== ENCOUNTER 2019-06-05 16:46 | Emergency (ER) | payer MEDICARE ==
[2019-06-05 16:49] VITALS: RESP 18; TEMP 98
[2019-06-05 17:25] LABS: Appearance,Urine Cloudy (Clear); Bilirubin,Urine Negative (Negative); Blood,Urine Negative (Negative); Color,Urine Yellow; Glucose,Urine (UA) Negative (Negative); Hyaline Casts,Urine 1 /lpf (0-2); Ketones,Urine Negative (Negative); Leukocyte Esterase,Urine Large (Negative); Mucus,Urine Rare /hpf; Nitrite,Urine Negative (Negative); PH, Urine 5.5 (5.0-8.0); Protein,Urine Trace (Negative); RBC,Urine 3 /hpf (0-5); Specific Gravity,Urine 1.014 (1.001-1.035); Squamous Epithelial Cell,Urine <1 /hpf (0-4); Urobilinogen,Urine <2.0 mg/dL (<2.0); WBC,Urine 133 /hpf (0-5)
--- NOTE | 2019-06-05 17:40 | ED ---
General Adult HPI - General Chief complaint: Urogenital Stated complaint: Unable to void Time Seen by Provider: 06/05/19 16:52 Source: patient Mode of arrival: ambulatory Limitations: no limitations - History of Present Illness Initial comments: Dictation was produced using [employer] dictation software. please excuse any grammatical, word or spelling errors. Chief Complaint: 74-year-old female with history of one kidney presents with sha rp chin from manager event to come for ultrasound of the kidneys. History of Present Illness: A 4-year-old female she presents today with oliguria. She states she has not been making urine per usual. She states she has only a left kidney. Right kidney was removed after it was overtaken by cancer. She is manager event from [facility] Dr. Causey. She spoke with her manager event but her symptoms she was instructed to come to the emergency department for ultrasound of the kidneys. Patient hasn't dysuria. Denies any nausea vomiting or abdominal symptoms. No diarrhea. The ROS documented in this emergency department record has been reviewed and confirmed by me. Those systems with pertinent positive or negative responses have been documented in the HPI. All other systems are other negative and/or noncontributory. PHYSICAL EXAM: General Impression: Alert and oriented x3, not in acute distress HEENT: Normocephalic atraumatic, extra-ocular movements intact, pupils equal and reactive to light bilaterally, mucous membranes moist. Cardiovascular: Heart regular rate and rhythm, S1&S2 audible, no murmurs, rubs or gallops Chest: Lungs clear to auscultation bilaterally, no rhonchi, no wheeze, no rales Abdomen: Bowel sounds present, abdomen soft, non-tender, non-distended, no organomegaly Musculoskeletal: Pulses present and equal in all extremities, no peripheral edema, no CVA tenderness Motor: no focal deficits noted Neurological: CN II-XII grossly intact, no focal motor or sensory deficits noted Skin: Intact with no visualized rashes Psych: Normal affect and mood ED course: 74-year-old female presents with oliguria as upon arrival are within acceptable limits. Patient has one kidney. Patient's manager event is Dr. Causey [phone]. Laboratory evaluation obtained. CBC unremarkable. Metabolic panel shows potassium 2.9. Patient given oral potassium.. BUN is 86, crit is 2.41 this is around patient's baseline. Patient given 1 L normal saline bolus. Urinalysis shows 133 white blood cells. Ultrasound of the kidneys ureter and bladder does not show any acute findings however there was a limited study. Patient given 1 g Rocephin for urinary tract infection. Patient given prescription for Keflex per she is advised to follow-up with primary care physician early next week. Temperature was discussed. Patient clear for discharge. Attempt was made to call her manager event however did not molded goods spot picker. Patient encouraged to eat high potassium foods and to have her potassium rechecked on outpatient basis. - Related Data Home Medications Medication Instructions Recorded Confirmed ALPRAZolam [Xanax] 0.25 mg PO TID 07/30/13 04/29/19 PARoxetine [Paxil] 20 mg PO HS 07/30/13 04/29/19 Simvastatin [Zocor] 40 mg PO DAILY 07/30/13 04/29/19 Cyclobenzaprine [Flexeril] 10 mg PO BID PRN 08/11/15 04/29/19 Docusate [Colace] 100 mg PO BID PRN 08/11/15 04/29/19 Folic Acid 0.8 mg PO DAILY 08/11/15 04/29/19 traMADol HCL [Ultram] 50 mg PO BID PRN 08/11/15 04/29/19 Calcium Carbonate/Vitamin D3 1 tab PO DAILY 04/29/19 04/29/19 [Calcium 500-Vit D3 600 Tablet] Carvedilol 12.5 mg PO BID 04/29/19 04/29/19 Furosemide [Lasix] 40 mg PO DAILY PRN 04/29/19 04/29/19 Multivitamins, Thera [Multivitamin 1 tab PO DAILY 04/29/19 04/29/19 (formulary)] Vitamin B Complex 1 tab PO DAILY 04/29/19 04/29/19 amLODIPine [Norvasc] 5 mg PO DAILY 04/29/19 04/29/19 Previous Rx's Medication Instructions Recorded Cephalexin [Keflex] 500 mg PO Q6HR 7 Days #28 cap 06/05/19 Allergies Allergy/AdvReac Type Severity Reaction Status Date / Time No Known Allergies Allergy Verified 06/05/19 16:49 Review of Systems ROS Statement: Those systems with pertinent positive or pertinent negative responses have been documented in the HPI. ROS Other: All systems not noted in ROS Statement are negative. Past Medical History Past Medical History: Cancer Additional Past Medical History / Comment(s): Hx diverticulitis Hx. arthritis Hx rt kidney cancer 2011, B-cell lymphoma, DVT- current. History of Any Multi-Drug Resistant Organisms: None Reported Past Surgical History: Hernia Repair, Hysterectomy Additional Past Surgical History / Comment(s): Hx Gastric bypass (1991) Hx left knee arthroscopy Hx cataracts bilat removed Past Anesthesia/Blood Transfusion Reactions: No Reported Reaction Past Psychological History: Anxiety, Depression Smoking Status: Never smoker Past Alcohol Use History: Rare Past Drug Use History: None Reported General Exam Limitations: no limitations Course Vital Signs 06/05/19 06/05/19 16:47 18:47 Temperature 98.0 F Pulse Rate 76 72 Respiratory 18 18 Rate Blood Pressure 143/87 140/80 O2 Sat by Pulse 99 98 Oximetry Medical Decision Making - Lab Data Result diagrams: 06/05/19 17:40 06/05/19 17:40 Lab Results 06/05/19 06/05/19 06/05/19 Range/Units 16:53 17:40 17:40 WBC 5.2 (3.8-10.6) k/uL RBC 3.62 L (3.80-5.40) m/uL Hgb 10.8 L (11.4-16.0) gm/dL Hct 33.0 L (34.0-46.0) % MCV 91.3 (80.0-100.0) fL MCH 29.9 (25.0-35.0) pg MCHC 32.7 (31.0-37.0) g/dL RDW 13.3 (11.5-15.5) % Plt Count 261 (150-450) k/uL Neutrophils % 60 % Lymphocytes % 25 % Monocytes % 8 % Eosinophils % 3 % Basophils % 1 % Neutrophils # 3.1 (1.3-7.7) k/uL Lymphocytes # 1.3 (1.0-4.8) k/uL Monocytes # 0.4 (0-1.0) k/uL Eosinophils # 0.2 (0-0.7) k/uL Basophils # 0.0 (0-0.2) k/uL Sodium 134 L (137-145) mmol/L Potassium 2.9 L (3.5-5.1) mmol/L Chloride 93 L (98-107) mmol/L Carbon Dioxide 31 H (22-30) mmol/L Anion Gap 10 mmol/L BUN 86 H (7-17) mg/dL Creatinine 2.41 H (0.52-1.04) mg/dL Est GFR (CKD-EPI)AfAm 22 (>60 ml/min/1.73 sqM) Est GFR (CKD-EPI)NonAf 19 (>60 ml/min/1.73 sqM) Glucose 100 H (74-99) mg/dL Calcium 9.0 (8.4-10.2) mg/dL Urine Color Yellow Urine Appearance Cloudy H (Clear) Urine pH 5.5 (5.0-8.0) Ur Specific [place] 1.014 (1.001-1.035) Urine Protein Trace H (Negative) Urine Glucose (UA) Negative (Negative) Urine Ketones Negative (Negative) Urine Blood Negative (Negative) Urine Nitrite Negative (Negative) Urine Bilirubin Negative (Negative) Urine Urobilinogen <2.0 (<2.0) mg/dL Ur Leukocyte Esterase Large H (Negative) Urine RBC 3 (0-5) /hpf Urine WBC 133 H (0-5) /hpf Urine WBC Clumps Many H (None) /hpf Ur Squamous Epith Cells <1 (0-4) /hpf Hyaline Casts 1 (0-2) /lpf Urine Mucus Rare H (None) /hpf Disposition Clinical Impression: Hypokalemia, UTI (urinary tract infection) Disposition: HOME SELF-CARE Condition: Good Instructions (If sedation given, give patient instructions): Urinary Tract Infection in Women (ED), Hypokalemia (ED) Additional Instructions: Please add more potassium-containing foods to her diet. Seek medical attention with left-sided flank pain, fever, chills or night sweats. Otherwise, follow up with primary care physician early next week. Your medications were sent to preferred pharmacy. Please go to the pharmacy for molded goods spot picker of your antibiotics. Prescriptions: Cephalexin [Keflex] 500 mg PO Q6HR 7 Days #28 cap Is patient prescribed a controlled substance at d/c from ED?: No Referrals: Kandy Pires MD [Primary Care Provider] - 1-2 days Time of Disposition: 20:02
[2019-06-05 18:10] LABS: Basophils % (A) 1 %; Eosinophils # (A) 0.2 k/uL (0-0.7); Eosinophils % (A) 3 %; HGB 10.8 gm/dL (11.4-16.0); Lymphocytes # (A) 1.3 k/uL (1.0-4.8); Lymphocytes % (A) 25 %; MCH 29.9 pg (25.0-35.0); MCHC 32.7 g/dL (31.0-37.0); MCV 91.3 fL (80.0-100.0); Mean Platelet Volume 7.6; Monocytes # (A) 0.4 k/uL (0-1.0); Monocytes % (A) 8 %; Neutrophils # (A) 3.1 k/uL (1.3-7.7); Neutrophils % (A) 60 %; Platelet Count 261 k/uL (150-450); RBC 3.62 m/uL (3.80-5.40); RDW 13.3 % (11.5-15.5); WBC 5.2 k/uL (3.8-10.6)
[2019-06-05 18:16] LABS: Potassium 2.9 mmol/L (3.5-5.1)
[2019-06-05] MEDS ORDERED: POTASSIUM CHLORIDE ER 20 MEQ TAB.ER PO STA (18:31)
[2019-06-05] MEDS ORDERED: SODIUM CHLORIDE 0.9% 1,000 ML IV STA (18:32)
[2019-06-05] MEDS ORDERED: cefTRIAXone IN SWFI 1,000 MG/10 ML SYRINGE IVP STA (19:06)
--- NOTE | 2019-06-05 19:49 | US ---
EXAMINATION TYPE: US kidneys/renal and bladder DATE OF EXAM: 06/05/2019 COMPARISON: US CLINICAL HISTORY: kidney pain. Kidney pain per order. Unable to void. Hx right kidney cancer 2012 and right kidney removal. Current UTI. EXAM MEASUREMENTS: Right Kidney: Surgically removed. Left Kidney: 10.1 x 5.1 x 5.1 cm Right kidney fossa not well seen due to gas. Left Kidney: Appears heterogeneous. Bladder: Appears to be anechoic. Wall measures 3.4 mm. Bilateral Jets seen: Left jet seen. RK removed. IMPRESSION: 1. Negative for obstructive left uropathy. 2. Urinary bladder negative. 3. Surgical absence of the right kidney secondary to 2012 resected carcinoma. LIMITATION: Due to overlying structures, there was difficult visualization of the renal parenchyma. A s a result, this examination is satisfactory for the exclusion of obstructive uropathy but less so fo r focal renal findings.
[2019-06-05 20:23] VITALS: BP 123/66; PULSE 64
== END 2019-06-05 20:22 | disposition home or self-care (01) ==
LOC: EC 16:46
DX: N39.0 Urinary tract infection, site not specified (principal); E87.6 Hypokalemia; M19.90 Unspecified osteoarthritis, unspecified site; F41.9 Anxiety disorder, unspecified; F32.9 Major depressive disorder, single episode, unspecified; Z90.5 Acquired absence of kidney; Z85.528 Personal history of other malignant neoplasm of kidney; Z85.72 Personal history of non-Hodgkin lymphomas; Z79.891 Long term (current) use of opiate analgesic; Z79.899 Other long term (current) drug therapy
CPT/HCPCS: 51798; 36415; 80048; 85025; 81001; 76770; 99284; 96374; J0696

== ENCOUNTER → 2020-12-02 | Outpatient (CLI) | payer MEDICARE ==
--- NOTE | 2020-12-03 11:15 | MM ---
Reason for exam: screening (asymptomatic). Last mammogram was performed 6 years and 7 months ago. History: Patient is postmenopausal and has history of other cancer at age 66. Took hormonal contraceptives for 1 year beginning at age 20. Took estrogen for 5 years beginning at age 33. Physical Findings: A clinical breast exam by your physician is recommended on an annual basis and results should be correlated with mammographic findings. MG 3D Screening Mammo W/Cad Bilateral CC and MLO view(s) were taken. Prior study comparison: May 01, 2014, bilateral MG screening mammo w CAD. December 12, 2012, CAD bilateral diagnostic mammogram. The breast tissue is heterogeneously dense. This may lower the sensitivity of mammography. Focal asymmetry inner upper left breast zone B. ASSESSMENT: Incomplete: need additional imaging evaluation, BI-RAD 0 RECOMMENDATION: Special view mammogram of the left breast. If lesion persists on supplemental views, image directed ultrasound is recommended. [facility] will attempt to contact patient to return for supplemental views and ultrasound if indicated.
== END | disposition home or self-care (01) ==
LOC: RADMAMWWP 12:05
PROVIDERS: ATTEND Internal Medicine
DX: Z12.31 Encounter for screening mammogram for malignant neoplasm of breast (principal); Z78.0 Asymptomatic menopausal state; Z85.9 Personal history of malignant neoplasm, unspecified; Z79.3 Long term (current) use of hormonal contraceptives
CPT/HCPCS: 77063; 77067

== ENCOUNTER → 2020-12-09 | Outpatient (CLI) | payer MEDICARE ==
--- NOTE | 2020-12-09 14:55 | MM ---
Reason for exam: additional evaluation requested from abnormal screening. Last mammogram was performed less than 1 month ago. History: Patient is postmenopausal and has history of other cancer at age 66. Took hormonal contraceptives for 1 year beginning at age 20. Took estrogen for 5 years beginning at age 33. Physical Findings: Nurse Summary: 2cm nodule in the left breast at 1 o'clock (nurse dw). MG 3D Work Up W/Cad LT Spot compression CC, spot compression MLO, and LM view(s) were taken of the left breast. Prior study comparison: December 02, 2020, bilateral MG 3d screening mammo w/cad. May 01, 2014, bilateral MG screening mammo w CAD. 1cm oval circumscribed nodularity superior LM view with adjacent palpable marker. The questioned central CC asymmetric density becomes less defined. These results were verbally communicated with the patient and result sheet given to the patient on 12/09/20. ASSESSMENT: Incomplete: need additional imaging evaluation, BI-RAD 0 RECOMMENDATION: Ultrasound of the left breast. (1 o'clock palpable)
--- NOTE | 2020-12-09 14:57 | USB ---
Reason for exam: additional evaluation requested from abnormal screening. History: Patient is postmenopausal and has history of other cancer at age 66. Took hormonal contraceptives for 1 year beginning at age 20. Took estrogen for 5 years beginning at age 33. US Breast Workup Limited LT Left limited breast ultrasound including focal area of concern, retroareolar and axilla demonstrates a 6 x 5mm oval lymph node at 1 o'clock, corresponds to mammographic finding. There is a vague 1.9cm ovoid isoechoic area. As the barbed wire machine operator also feels the transducer moving over this area, a lipoma is suggested. Scanned nurse palpable at 1 o'clock. These results were verbally communicated with the patient and result sheet given to the patient on 12/09/20. ASSESSMENT: Probably benign, BI-RAD 3 RECOMMENDATION: Follow-up diagnostic mammogram of the left breast in 6 months. Manage on a clinical basis with regard to any suspicious palpable abnormality.
== END | disposition home or self-care (01) ==
LOC: RADMAMWWP 12:57
PROVIDERS: ATTEND Internal Medicine
DX: N63.21 Unspecified lump in the left breast, upper outer quadrant (principal); Z78.0 Asymptomatic menopausal state; Z85.9 Personal history of malignant neoplasm, unspecified; Z79.3 Long term (current) use of hormonal contraceptives
CPT/HCPCS: 77065; 76642; G0279; 77061

== ENCOUNTER → 2021-06-20 | Outpatient (CLI) | payer MEDICARE ==
--- NOTE | 2021-06-22 12:18 | MM ---
Reason for exam: follow-up at short interval from prior study. Last mammogram was performed 6 months ago. History: Patient is postmenopausal and has history of other cancer at age 66. Took hormonal contraceptives for 1 year beginning at age 20. Took estrogen for 5 years beginning at age 33. Physical Findings: A clinical breast exam by your physician is recommended on an annual basis and results should be correlated with mammographic findings. MG 3D Diag Mammo W/Cad STEPHEN Bilateral CC and MLO view(s) were taken. XCCL view(s) were taken of the left breast. Prior study comparison: December 09, 2020, left breast MG 3d work up w/cad LT. December 02, 2020, bilateral MG 3d screening mammo w/cad. The breast tissue is heterogeneously dense. This may lower the sensitivity of mammography. Stable central inner left CC view asymmetric density for 6 months. Continued follow up recommended. No significant changes when compared with prior studies. ASSESSMENT: Probably benign, BI-RAD 3 RECOMMENDATION: Follow-up diagnostic mammogram of the left breast in 6 months.
== END | disposition home or self-care (01) ==
LOC: RADMAMWWP 14:30
PROVIDERS: ATTEND Internal Medicine
DX: N64.89 Other specified disorders of breast (principal); Z78.0 Asymptomatic menopausal state
CPT/HCPCS: 77066; G0279; 77062

== ENCOUNTER → 2021-11-03 | Outpatient (CLI) | payer MEDICARE | END | disposition home or self-care (01) | LOC: LABWHC1 10:30 | PROVIDERS: ATTEND Internal Medicine | DX: Z20.822 Contact with and (suspected) exposure to COVID-19 (principal) | CPT/HCPCS: U0003; C9803; U0005 ==

== ENCOUNTER → 2022-01-12 | Outpatient (CLI) | payer MEDICARE ==
--- NOTE | 2022-01-12 10:45 | MM ---
Reason for Exam: Follow-up at short interval from prior study. Last screening mammogram was performed 7 month(s) ago. Patient History: Menarche at age 10. First Full-Term at age 18. Left ovary removed at age 33. Right ovary removed at age 33. Hysterectomy at age 33. Postmenopausal. Other cancer, age 66. Estrogen for 5 years from age 33 until age 38. Hormonal Contraceptives, starting at age 20 for 1 year. Risk Values: Brooke 5 year model risk: 1.4%. NCI Lifetime model risk: 2.8%. Prior Study Comparison: 12/02/2020 Bilateral Screening Mammogram, [facility]. 12/09/2020 Left Diagnostic Mammogram, [facility]. 06/20/2021 Bilateral Diagnostic Mammogram, [facility]. Tissue Density: Left: The breast tissue is heterogeneously dense. This may lower the sensitivity of mammography. Findings: Analyzed By CAD. The centrally located asymmetric density just medial to the retroareolar plan on the CC view is less defined. The second CC view shows that it disperses completely. Global asymmetry upper outer quadrant left breast unchanged as are a few scattered benign oil cyst and vascular calcifications. Overall Assessment: Benign, BI-RAD 2 Management: Screening Mammogram of both breasts in 6 months. 1. Patient should continue monthly self breast exams. 2. A clinical breast exam by your physician is recommended on an annual basis. 3. This exam should not preclude additional follow-up of suspicious palpable abnormalities. Results were given to the patient verbally at the time of exam. Electronically signed and approved by: Jocelin Miller M.D. Radiologist
== END | disposition home or self-care (01) ==
LOC: RADMAMWWP 09:40
PROVIDERS: ATTEND Internal Medicine
DX: R92.8 Other abnormal and inconclusive findings on diagnostic imaging of breast (principal); Z78.0 Asymptomatic menopausal state; Z85.89 Personal history of malignant neoplasm of other organs and systems
CPT/HCPCS: 77065; G0279; 77061

== ENCOUNTER → 2022-02-27 | Outpatient (CLI) | payer MEDICARE ==
[2022-02-27 16:46] LABS: Creatinine,Urine Random 26.3 mg/dL; Protein/Creatinine Ratio,Urine 0.418
[2022-02-27 22:42] LABS: Appearance,Urine Clear (Clear); Bilirubin,Urine Negative (Negative); Blood,Urine Negative (Negative); Color,Urine Yellow (Yellow); Ketones,Urine Negative (Negative); Nitrite,Urine Negative (Negative); Specific Gravity,Urine 1.008 (1.001-1.030); Urobilinogen,Urine 0.2 (0.2,1.0)
[2022-02-28] LABS: Basophils # (A) 0.03 X 10*3/uL (0.00-0.10); Basophils % (A) 0.6 %; Eosinophils # (A) 0.23 X 10*3/uL (0.04-0.35); Eosinophils % (A) 4.7 %; HCT 36.9 % (37.2-46.3); HGB 11.6 g/dL (12.0-15.0); Immature Grans, Automated 0.2 %; Lymphocytes # (A) 1.12 X 10*3/uL (0.90-5.00); Lymphocytes % (A) 23.1 %; MCH 31.4 pg (27.0-32.0); MCHC 31.4 g/dL (32.0-37.0); MCV 99.7 fL (80.0-97.0); Mean Platelet Volume 10.3 fL (9.5-12.2); Monocytes # (A) 0.56 X 10*3/uL (0.20-1.00); Monocytes % (A) 11.5 %; NRBC Per 100 WBC 0 /100 WBCS (0.0-0.0); Neutrophils % (A) 59.9 %; Platelet Count 269 X 10*3/uL (140-440); WBC 4.85 X 10*3/uL (4.50-10.00)
[2022-02-28 01:08] LABS: % Iron Saturation 17.82 (12.00-45.00); African American GFR (CKD) 19.7 (60.0-200.0); Albumin 4.3 g/dL (3.8-4.9); Anion Gap 14.8 mmol/L (10.00-18.00); BUN/Creat Ratio 26.01 Ratio (12.00-20.00); Blood Urea Nitrogen 68.4 mg/dL (9.0-27.0); Calcium 9.2 mg/dL (8.7-10.3); Carbon Dioxide 23.1 mmol/L (20.0-27.5); Phosphorus 4.7 mg/dL (2.4-5.1); Potassium 4.6 mmol/L (3.5-5.5)
[2022-02-28 01:50] LABS: Bacteria,Urine None Seen /HPF (None Seen)
== END | disposition home or self-care (01) ==
LOC: LABWHC1 15:33
PROVIDERS: ATTEND Student in an Organized Health Care Education/Training Program
DX: N18.9 Chronic kidney disease, unspecified (principal)
CPT/HCPCS: 36415; 80069; 81001; 82306; 82570; 82728; 83540; 83550; 83970; 84156; 85025

== ENCOUNTER → 2022-04-20 | Outpatient (CLI) | payer MEDICARE ==
--- NOTE | 2022-04-20 12:01 | XR ---
EXAMINATION TYPE: XR chest 2V DATE OF EXAM: 04/20/2022 COMPARISON: 08/11/2015 INDICATION: Cough, history of Hodgkin's, TECHNIQUE: Frontal and lateral views of the chest are obtained. FINDINGS: The heart size is normal. The pulmonary vasculature is normal. The lungs are clear. There appears to be loss of the humeral head at the left shoulder. Large calcif ication is in the axillary region. IMPRESSION: 1. No acute pulmonary process.
--- NOTE | 2022-04-20 12:02 | US ---
EXAMINATION TYPE: US kidneys/renal and bladder DATE OF EXAM: 04/20/2022 COMPARISON: NONE CLINICAL HISTORY: N18.4 ckd stage 4. ckd 4 right kidney removed 2011 CA EXAM MEASUREMENTS: Right Kidney: Surgically absent Left Kidney: 11.5 x 4.8 x 3.7 cm Right Kidney: Surgically absent Left Kidney: No hydronephrosis or masses seen Bladder: anechoic Bilateral Jets seen: Yes IMPRESSION: 1. Normal left kidney. 2. No recurrent masses within the right renal bed
== END | disposition home or self-care (01) ==
LOC: RADUSWWP 11:03
PROVIDERS: ATTEND Internal Medicine
DX: N18.4 Chronic kidney disease, stage 4 (severe) (principal); R05.9 Cough, unspecified
CPT/HCPCS: 71046; 76770

== ENCOUNTER → 2022-06-09 | Outpatient (CLI) | payer MEDICARE ==
[2022-06-09 14:41] LABS: % Iron Saturation 13.13 (12.00-45.00); ALT 19 U/L (8-44); AST 27 U/L (13-35); Albumin 4.3 g/dL (3.8-4.9); Albumin/Globulin Ratio 2.05 (1.60-3.17); Alkaline Phosphatase 59 U/L (41-126); BUN/Creat Ratio 24.28 Ratio (12.00-20.00); Blood Urea Nitrogen 79.4 mg/dL (9.0-27.0); Calcium 8.7 mg/dL (8.7-10.3); Chloride 96 mmol/L (96-109); Globulin 2.1 g/dL (1.6-3.3); Glucose 75 mg/dL (70-110); Iron 48 ug/dL (50-170); Magnesium 2.2 mg/dL (1.5-2.4); Phosphorus 4.6 mg/dL (2.4-5.1); Potassium 3.9 mmol/L (3.5-5.5); Sodium 135 mmol/L (135-145); Total Bilirubin <0.15 mg/dL (0.30-1.20); Total Iron Binding Capacity 363 ug/dL (228-460); Total Protein 6.4 g/dL (6.2-8.2); Uric Acid 6.5 mg/dL (2.9-7.7)
[2022-06-09 14:42] LABS: Basophils # (A) 0.03 X 10*3/uL (0.00-0.10); Basophils % (A) 0.7 %; Eosinophils # (A) 0.24 X 10*3/uL (0.04-0.35); Eosinophils % (A) 5.6 %; HCT 30.3 % (37.2-46.3); HGB 9.5 g/dL (12.0-15.0); Immature Grans, Automated 0.2 %; Lymphocytes # (A) 0.96 X 10*3/uL (0.90-5.00); Lymphocytes % (A) 22.5 %; MCH 30.4 pg (27.0-32.0); MCHC 31.4 g/dL (32.0-37.0); MCV 97.1 fL (80.0-97.0); Monocytes # (A) 0.62 X 10*3/uL (0.20-1.00); Monocytes % (A) 14.5 %; NRBC Per 100 WBC 0 /100 WBCS (0.0-0.0); Neutrophils # (A) 2.41 X 10*3/uL (1.80-7.70); Neutrophils % (A) 56.5 %; Platelet Count 235 X 10*3/uL (140-440); RBC 3.12 X 10*6/uL (4.10-5.20); RDW 12.6 % (11.5-14.5); WBC 4.27 X 10*3/uL (4.50-10.00)
[2022-06-09 17:43] LABS: Appearance,Urine Clear (Clear); Bilirubin,Urine Negative (Negative); Blood,Urine Negative (Negative); Color,Urine Yellow (Yellow); Ketones,Urine Negative (Negative); Nitrite,Urine Negative (Negative); PH, Urine 5.5 (5.0-8.0); Specific Gravity,Urine 1.007 (1.001-1.030); Urobilinogen,Urine 0.2 (0.2,1.0)
[2022-06-09 21:58] LABS: Urine Creatinine 26.3 mg/dL (28.0-217.0)
== END | disposition home or self-care (01) ==
LOC: LABWHC1 09:34
PROVIDERS: ATTEND Internal Medicine
DX: E55.9 Vitamin D deficiency, unspecified (principal); N39.0 Urinary tract infection, site not specified; N25.81 Secondary hyperparathyroidism of renal origin; M10.9 Gout, unspecified; D63.1 Anemia in chronic kidney disease; N18.4 Chronic kidney disease, stage 4 (severe)
CPT/HCPCS: 36415; 80053; 81003; 82043; 82306; 82570; 82728; 83540; 83550; 83735; 83970; 84100; 84550; 85025

== ENCOUNTER 2022-06-16 11:27 | Observation (INO) | payer MEDICARE ==
--- NOTE | 2022-06-16 12:28 | ED ---
General Adult HPI - General Chief complaint: Weakness Stated complaint: Weakness Time Seen by Provider: 06/16/22 12:01 Source: patient, RN notes reviewed, old records reviewed Mode of arrival: wheelchair Limitations: no limitations - History of Present Illness Initial comments: 77-year-old female who presented for evaluation of weakness, difficulty standing and episode of slurred speech. This began at 4 AM this morning she presented at noon. Her symptoms had resolved but she felt she should be evaluated. She has no prior history of CVA. She states that her weakness was both arms and both legs there was no focal weakness reported but she states she had difficulty getting words out and that her words were slurred. She went back to bed and sta flex that this had resolved. She has a history of chronic kidney disease status post nephrectomy. She denies any change in urination. Denies any vomiting or diarrhea. Denies fever. - Related Data Home Medications Medication Instructions Recorded Confirmed ALPRAZolam [Xanax] 0.25 mg PO TID PRN 07/30/13 06/16/22 PARoxetine [Paxil] 20 mg PO DAILY 07/30/13 06/16/22 Simvastatin [Zocor] 40 mg PO DAILY 07/30/13 06/16/22 Folic Acid 0.8 mg PO DAILY 08/11/15 06/16/22 traMADol HCL [Ultram] 50 mg PO BID PRN 08/11/15 06/16/22 Vitamin B Complex 1 tab PO DAILY 04/29/19 06/16/22 Biotin [Ovgi-Bnew-Jgtua] 10,000 mcg PO DAILY 06/16/22 06/16/22 Cyanocobalamin (Vitamin B-12) 3,000 mcg PO DAILY 06/16/22 06/16/22 [Vitamin B-12] Diclofenac Sodium Gel [Voltaren 1 applic TOPICAL QID PRN 06/16/22 06/16/22 Gel] Docusate Sodium 250 mg PO DAILY 06/16/22 06/16/22 Metoprolol Succinate [Metoprolol 12.5 mg PO BID 06/16/22 06/16/22 Succinate ER] Simethicone [Gas-X] 125 mg PO ACHS PRN 06/16/22 06/16/22 amLODIPine [Norvasc] 2.5 mg PO DAILY 06/16/22 06/16/22 calcitrioL [Calcitriol] 0.25 mcg PO TU 06/16/22 06/16/22 Allergies Allergy/AdvReac Type Severity Reaction Status Date / Time No Known Allergies Allergy Verified 06/16/22 12:39 Review of Systems ROS Statement: Those systems with pertinent positive or pertinent negative responses have been documented in the HPI. ROS Other: All systems not noted in ROS Statement are negative. Past Medical History Past Medical History: Cancer Additional Past Medical History / Comment(s): Hx diverticulitis Hx. arthritis Hx rt kidney cancer 2011, B-cell lymphoma, DVT- current. History of Any Multi-Drug Resistant Organisms: None Reported Past Surgical History: Hernia Repair, Hysterectomy Additional Past Surgical History / Comment(s): Hx Gastric bypass (1991) Hx left knee arthroscopy Hx cataracts bilat removed Past Anesthesia/Blood Transfusion Reactions: No Reported Reaction Past Psychological History: Anxiety, Depression Smoking Status: Never smoker Past Alcohol Use History: Rare Past Drug Use History: None Reported General Exam Limitations: no limitations General appearance: alert, in no apparent distress Head exam: Present: atraumatic, normocephalic Eye exam: Present: normal appearance, PERRL ENT exam: Present: normal exam Neck exam: Present: normal inspection. Absent: tenderness, meningismus Respiratory exam: Present: normal lung sounds bilaterally. Absent: respiratory distress, wheezes Cardiovascular Exam: Present: regular rate, normal rhythm GI/Abdominal exam: Present: soft. Absent: distended, tenderness, guarding Extremities exam: Present: normal inspection, normal capillary refill. Absent: pedal edema Neurological exam: Present: alert, oriented X3, CN II-XII intact, other (Normal finger to nose bilaterally, normal [id number], normal strength throughout, NIH of 0). Absent: motor sensory deficit Psychiatric exam: Present: normal affect, normal mood Skin exam: Present: warm, dry, intact. Absent: cyanosis, diaphoretic Course Vital Signs 06/16/22 11:44 Temperature 98.3 F Pulse Rate 70 Respiratory 20 Rate Blood Pressure 145/70 O2 Sat by Pulse 99 Oximetry EKG Findings - EKG Results: EKG: interpreted by ERMSuzy (Sinus rhythm with first-degree AV block rate of 68, IL interval 228, QRS duration 93, QTC [address] segment elevation. T waves are upright.) Medical Decision Making - Medical Decision Making Was pt. sent in by a medical professional or institution (SAMY Carmichael, SCREENER AND BLENDER OPERATOR, urgent care, hospital, or [facility]...) When possible be specific @ -No Did you speak to anyone other than the patient for history (EMS, parent, family, police, friend...)? What history was obtained from this source @ -Patient's daughters bedside was able to have contracted a history Did you review nursing and triage notes (agree or disagree)? Why? @ -I reviewed and agree with nursing and triage notes Were old charts reviewed (outside hosp., previous admission, EMS record, old EKG, old radiological studies, urgent care reports/EKG's, [facility] records)? Report findings @ -Reviewed old laboratory testing Differential Diagnosis (chest pain, altered mental status, abdominal pain women, abdominal pain men, vaginal bleeding, weakness, fever, dyspnea, syncope, headache, dizziness, GI bleed, back pain, seizure, CVA, palpatations, mental health, musculoskeletal)? @ Differential CVA Ischemic stroke, hemorrhagic stroke, brain tumor, atypical migraine, Wernicke's encephalopathy, seizure, multiple sclerosis, meningitis, encephalitis, hypoglycemia, Guillain-Bray, electrolytes disturbance, myasthenia gravis.... This is not meant to be an all-inclusive list EKG interpreted by me (3pts min.). @ -As above X-rays interpreted by me (1pt min.). @ -Chest x-ray reviewed, negative for acute process, CT interpreted by me (1pt min.). @ -CT without contrast performed which was negative for intracranial hemorrhage or mass effect, reviewed by myself and agree with the radiologist interpretation U/S interpreted by me (1pt. min.). @ -None done What testing was considered but not performed or refused? (CT, X-rays, U/S, la bs)? Why? @ -Consider CT angiography of her patient has history of chronic kidney disease and felt that the risks outweigh the benefits What meds were considered but not given or refused? Why? @ -None Did you discuss the management of the patient with other professionals (professionals i.e. SAMY Carmichael, SCREENER AND BLENDER OPERATOR, lab, RT, psych nurse, social work administrator, director special education, teacher, college service officer, case advocate)? Give summary @ -Patient admitted to hospitalist group, case discussed with Dr. Mendoza Was smoking cessation discussed for >3mins.? @ -No Was critical care preformed (if so, how long)? @ -No Were there social determinants of health that impacted care today? How? (Homelessness, low income, unemployed, alcoholism, drug addiction, transportation, low edu. Level, literacy, decrease access to med. care, snf, rehab)? @ -No Was there de-escalation of care discussed even if they declined (Discuss DNR or withdrawal of care, Hospice)? DNR status @ -No What co-morbidities impacted this encounter? (DM, HTN, Smoking, COPD, CAD, Cancer, CVA, ARF, Chemo, Hep., AIDS, mental health diagnosis, sleep apnea, morbid obesity)? @ -Chronic kidney disease, hypertension Was patient admitted / discharged? Hospital course, mention meds given and route, prescriptions, significant lab abnormalities, going to OR and other per tinent info. @ -Patient presented with an episode of slurred speech and generalized weakness. Speech difficulties have resolved and strength is 5 out of 5 throughout. NIH is 0. Suspect this possibly may have been related to TIA. Workup in the emergency department shows chronic laboratory abnormalities including anemia and chronic kidney disease with no other acute findings. Patient will benefit from admission for further evaluation of TIA. She'll be admitted to internal medicine with neurology on consult. Undiagnosed new problem with uncertain prognosis? @ -Dysarthria, generalized weakness Drug Therapy requiring intensive monitoring for toxicity (Heparin, Nitro, Insulin, Cardizem)? @ -No Were any procedures done? @ -No Diagnosis/symptom? @ -TIA Acute, or Chronic, or Acute on Chronic? @ -Acute Uncomplicated (without systemic symptoms) or Complicated (systemic symptoms)? @ -Complicated Side effects of treatment? @ -No Exacerbation, Progression, or Severe Exacerbation? @ -No Poses a threat to life or bodily function? How? (Chest pain, USA, CA, pneumonia, PE, COPD, DKA, ARF, appy, cholecystitis, CVA, Diverticulitis, Homicidal, Suicidal, threat to staff... and all critical care pts) @ -Risk of CVA and progressive neurologic dysfunction. - Lab Data Result diagrams: 06/16/22 12:44 06/16/22 12:44 Lab Results 06/16/22 06/16/22 06/16/22 Range/Units 12:44 12:44 12:44 WBC 4.6 (3.8-10.6) k/uL RBC 2.99 L (3.80-5.40) m/uL Hgb 9.4 L (11.4-16.0) gm/dL Hct 28.6 L (34.0-46.0) % MCV 95.5 (80.0-100.0) fL MCH 31.4 (25.0-35.0) pg MCHC 32.9 (31.0-37.0) g/dL RDW 12.4 (11.5-15.5) % Plt Count 254 (150-450) k/uL MPV 7.9 Neutrophils % 78 % Lymphocytes % 13 % Monocytes % 5 % Eosinophils % 1 % Basophils % 0 % Neutrophils # 3.6 (1.3-7.7) k/uL Lymphocytes # 0.6 L (1.0-4.8) k/uL Monocytes # 0.3 (0-1.0) k/uL Eosinophils # 0.1 (0-0.7) k/uL Basophils # 0.0 (0-0.2) k/uL PT 9.7 (9.0-12.0) sec INR 0.9 (<1.2) APTT 20.9 L (22.0-30.0) sec Sodium 137 (137-145) mmol/L Potassium 3.7 (3.5-5.1) mmol/L Chloride 102 (98-107) mmol/L Carbon Dioxide 23 (22-30) mmol/L Anion Gap 12 mmol/L BUN 95 H (7-17) mg/dL Creatinine 3.34 H (0.52-1.04) mg/dL Est GFR (CKD-EPI)AfAm 15 (>60 ml/min/1.73 sqM) Est GFR (CKD-EPI)NonAf 13 (>60 ml/min/1.73 sqM) Glucose 100 H (74-99) mg/dL Plasma Lactic Acid Manish (0.7-2.0) mmol/L Calcium 8.8 (8.4-10.2) mg/dL Magnesium 2.5 H (1.6-2.3) mg/dL Total Bilirubin 0.5 (0.2-1.3) mg/dL AST 33 (14-36) U/L ALT 24 (4-34) U/L Alkaline Phosphatase 59 (38-126) U/L Troponin I (0.000-0.034) ng/mL Total Protein 7.0 (6.3-8.2) g/dL Albumin 4.2 (3.5-5.0) g/dL Urine Color Urine Appearance (Clear) Urine pH (5.0-8.0) Ur Specific [place] (1.001-1.035) Urine Protein (Negative) Urine Glucose (UA) (Negative) Urine Ketones (Negative) Urine Blood (Negative) Urine Nitrite (Negative) Urine Bilirubin (Negative) Urine Urobilinogen (<2.0) mg/dL Ur Leukocyte Esterase (Negative) 06/16/22 06/16/22 06/16/22 Range/Units 12:44 12:44 12:45 WBC (3.8-10.6) k/uL RBC (3.80-5.40) m/uL Hgb (11.4-16.0) gm/dL Hct (34.0-46.0) % MCV (80.0-100.0) fL MCH (25.0-35.0) pg MCHC (31.0-37.0) g/dL RDW (11.5-15.5) % Plt Count (150-450) k/uL MPV Neutrophils % % Lymphocytes % % Monocytes % % Eosinophils % % Basophils % % Neutrophils # (1.3-7.7) k/uL Lymphocytes # (1.0-4.8) k/uL Monocytes # (0-1.0) k/uL Eosinophils # (0-0.7) k/uL Basophils # (0-0.2) k/uL PT (9.0-12.0) sec INR (<1.2) APTT (22.0-30.0) sec Sodium (137-145) mmol/L Potassium (3.5-5.1) mmol/L Chloride (98-107) mmol/L Carbon Dioxide (22-30) mmol/L Anion Gap mmol/L BUN (7-17) mg/dL Creatinine (0.52-1.04) mg/dL Est GFR (CKD-EPI)AfAm (>60 ml/min/1.73 sqM) Est GFR (CKD-EPI)NonAf (>60 ml/min/1.73 sqM) Glucose (74-99) mg/dL Plasma Lactic Acid Manish 1.0 (0.7-2.0) mmol/L Calcium (8.4-10.2) mg/dL Magnesium (1.6-2.3) mg/dL Total Bilirubin (0.2-1.3) mg/dL AST (14-36) U/L ALT (4-34) U/L Alkaline Phosphatase (38-126) U/L Troponin I <0.012 (0.000-0.034) ng/mL Total Protein (6.3-8.2) g/dL Albumin (3.5-5.0) g/dL Urine Color Light Yellow Urine Appearance Clear (Clear) Urine pH 5.0 (5.0-8.0) Ur Specific [place] 1.010 (1.001-1.035) Urine Protein Negative (Negative) Urine Glucose (UA) Negative (Negative) Urine Ketones Negative (Negative) Urine Blood Negative (Negative) Urine Nitrite Negative (Negative) Urine Bilirubin Negative (Negative) Urine Urobilinogen <2.0 (<2.0) mg/dL Ur Leukocyte Esterase Negative (Negative) Disposition Clinical Impression: TIA (transient ischemic attack) Disposition: ADMITTED IP TO THIS HOSP Condition: Stable Is patient prescribed a controlled substance at d/c from ED?: No Referrals: Kandy Pires MD [Primary Care Provider] - 1-2 days Time of Disposition: 14:21
[2022-06-16 12:55] LABS: Basophils % (A) 0 %; Eosinophils # (A) 0.1 k/uL (0-0.7); Eosinophils % (A) 1 %; HCT 28.6 % (34.0-46.0); HGB 9.4 gm/dL (11.4-16.0); Lymphocytes # (A) 0.6 k/uL (1.0-4.8); Lymphocytes % (A) 13 %; MCH 31.4 pg (25.0-35.0); MCHC 32.9 g/dL (31.0-37.0); MCV 95.5 fL (80.0-100.0); Mean Platelet Volume 7.9; Monocytes # (A) 0.3 k/uL (0-1.0); Monocytes % (A) 5 %; Neutrophils # (A) 3.6 k/uL (1.3-7.7); Neutrophils % (A) 78 %; Platelet Count 254 k/uL (150-450); RBC 2.99 m/uL (3.80-5.40); RDW 12.4 % (11.5-15.5); WBC 4.6 k/uL (3.8-10.6)
[2022-06-16 13:16] LABS: INR 0.9 (<1.2); Prothrombin Time 9.7 sec (9.0-12.0)
[2022-06-16 13:20] LABS: Partial Thromboplastin Time 20.9 sec (22.0-30.0)
[2022-06-16 13:22] LABS: Albumin 4.2 g/dL (3.5-5.0); Calcium 8.8 mg/dL (8.4-10.2); Magnesium 2.5 mg/dL (1.6-2.3); Potassium 3.7 mmol/L (3.5-5.1); Total Bilirubin 0.5 mg/dL (0.2-1.3)
--- NOTE | 2022-06-16 13:25 | CT ---
EXAMINATION TYPE: CT brain wo con DATE OF EXAM: 06/16/2022 COMPARISON: None HISTORY: 77-year-old female difficulty with speech, unable to stand TECHNIQUE: Examination was done in axial plane without intravenous contrast. Coronal and sagittal r econstructions performed. CT DLP: 1037.4 mGycm Automated exposure control for dose reduction was used. FINDINGS: There is no evidence of acute intracranial hemorrhage, acute ischemic changes, mass, mass-effect, or extra-axial fluid collection. There is no effacement of cerebral sulci or basal subarachnoid cister ns. There is no hydrocephalus. There is no midline shift. Guillen-white matter distinction is preserv ed. Mild bifrontal cerebral atrophy. Dense dystrophic dural calcifications anterior falx. Mild white dione er hypodensities in both cerebral hemispheres. Partially empty sella. Paranasal sinuses and mastoid air cells are well pneumatized. Orbits and globes are intact. IMPRESSION: No acute intracranial abnormality seen. Mild bifrontal atrophy and mild burden of chronic small vesse l ischemic disease.
--- NOTE | 2022-06-16 13:25 | XR ---
EXAMINATION TYPE: XR chest 2V DATE OF EXAM: 06/16/2022 1:16 PM COMPARISON: Chest radiographs from 04/20/2022. TECHNIQUE: XR chest 2V Frontal and lateral views of the chest. CLINICAL INDICATION:Female, 77 years old with history of Weakness; FINDINGS: Lungs/Pleura: There is flattening of the diaphragm with increased lucency of the lungs. No evidence o f pneumothorax, pleural effusion or focal consolidation. Pulmonary vascularity: Unremarkable. Heart/mediastinum: Cardiomediastinal silhouette is unremarkable. Atherosclerotic calcifications are seen in the aorta. Musculoskeletal: Multiple level degenerative disc disease changes seen throughout the spine. No acute osseous abnormality. Scoliotic curvature. Remote fracture deformity of the left proximal humerus. IMPRESSION: 1. No acute cardiopulmonary disease process. 2. COPD changes.
[2022-06-16 13:34] LABS: Appearance,Urine Clear (Clear); Bilirubin,Urine Negative (Negative); Blood,Urine Negative (Negative); Color,Urine Light Yellow; Glucose,Urine (UA) Negative (Negative); Ketones,Urine Negative (Negative); Leukocyte Esterase,Urine Negative (Negative); Nitrite,Urine Negative (Negative); Protein,Urine Negative (Negative); Urobilinogen,Urine <2.0 mg/dL (<2.0)
[2022-06-16] MEDS ORDERED: ASPIRIN 325 MG TAB PO STA (13:58)
[2022-06-16] MEDS ORDERED: ACETAMINOPHEN TAB 325 MG TAB PO PRN (14:10)
[2022-06-16] MEDS: SODIUM CHLORIDE 0.9% 1,000 ML IV SCH (15:31)
--- NOTE | 2022-06-16 16:53 | P.CNNES ---
History of Present Illness Consult date: 06/16/22 Requesting physician: Estuardo Jeronimo Reason for Consult: TIA History of Present Illness: This is a 77-year-old woman with history of hypertension, chronic kidney and insufficiency, renal cancer and lymphoma status post chemotherapy and patient has been in remission since 2016 who presented emergency department because of weakness. Patient is accompanied with her [id number] was at bedside. Patient stated that she woke up around the 4 AM today after the dark was barking and she noticed that she could not get out of bed and she noticed that her arms and legs were weak and noticed that her words were as slurring. The episode lasted for 20 minutes so the patient went back to bed. Last normal was about 10 PM the day prior. Later during the day she notified her [id number] and as a result she was brought to the hospital for medical attention. She denies any history of stroke or TIAs in the past. She denies of any tobacco use. She denies of any use of antiplatelet or anticoagulation. Of note also the patient stated that she has history of heart failure due to the chemotherapy. She is to have hypoglycemic event that has resolved. Some of the workup during his hospital visit consisted of: BUN is 95 creatinine is 3.34, magnesium 2.5 otherwise rest of cancer panel is unremarkable. Urinalysis is negative for underlying urinary tract infection. CT of the head is reported as no acute intracranial abnormality seen. Mild bifrontal atrophy and mild burden of chronic small vessel ischemic disease. I personally reviewed the CT of the head and I agree with the report. EKG is reported as sinus rhythm with first-degree AV block. Septal myocardial infarction of indeterminate age. Patient feels back to baseline. No IV TPA since patient is at baseline and the risk of IV TPA outweigh the benefit. As well as the patient is outside the window upon presenting the hospital. Review of Systems Review of system: The 12 point system was reviewed and apparent positive and negative per HPI. Past Medical History Past Medical History: Cancer Additional Past Medical History / Comment(s): Hx diverticulitis Hx. arthritis Hx rt kidney cancer 2011, B-cell lymphoma, DVT- current. History of Any Multi-Drug Resistant Organisms: None Reported Past Surgical History: Hernia Repair, Hysterectomy Additional Past Surgical History / Comment(s): Hx Gastric bypass (1991) Hx left knee arthroscopy Hx cataracts bilat removed Past Anesthesia/Blood Transfusion Reactions: No Reported Reaction Past Psychological History: Anxiety, Depression Smoking Status: Never smoker Past Alcohol Use History: Rare Past Drug Use History: None Reported Medications and Allergies Home Medications Medication Instructions Recorded Confirmed Type ALPRAZolam [Xanax] 0.25 mg PO TID PRN 07/30/13 06/16/22 History PARoxetine [Paxil] 20 mg PO DAILY 07/30/13 06/16/22 History Simvastatin [Zocor] 40 mg PO DAILY 07/30/13 06/16/22 History Folic Acid 0.8 mg PO DAILY 08/11/15 06/16/22 History traMADol HCL [Ultram] 50 mg PO BID PRN 08/11/15 06/16/22 History Vitamin B Complex 1 tab PO DAILY 04/29/19 06/16/22 History Biotin [Kbow-Poru-Wgwap] 10,000 mcg PO DAILY 06/16/22 06/16/22 History Cyanocobalamin (Vitamin B-12) 3,000 mcg PO DAILY 06/16/22 06/16/22 History [Vitamin B-12] Diclofenac Sodium Gel [Voltaren 1 applic TOPICAL QID PRN 06/16/22 06/16/22 History Gel] Docusate Sodium 250 mg PO DAILY 06/16/22 06/16/22 History Metoprolol Succinate [Metoprolol 12.5 mg PO BID 06/16/22 06/16/22 History Succinate ER] Simethicone [Gas-X] 125 mg PO ACHS PRN 06/16/22 06/16/22 History amLODIPine [Norvasc] 2.5 mg PO DAILY 06/16/22 06/16/22 History calcitrioL [Calcitriol] 0.25 mcg PO TU 06/16/22 06/16/22 History Allergies Allergy/AdvReac Type Severity Reaction Status Date / Time No Known Allergies Allergy Verified 06/16/22 12:39 Physical Examination - Vital Signs Vital Signs: Vital Signs Temp Pulse Resp BP Pulse Ox 06/16/22 11:44 98.3 F 70 20 145/70 99 Intake and Output 06/16/22 06/16/22 06/16/22 06:59 14:59 22:59 Other: Weight 55.338 kg GENERAL: The patient is lying in bed and is not in acute distress. CHEST: The heart rate is regular rate rhythm. No murmurs to auscultation. LUNG: Clear to auscultation bilaterally no wheezing noted throughout. Not labored breathing. ABDOMEN/GI: Bowel sounds present in all 4 quadrants. No tenderness to palpation throughout. NEUROLOGICAL: Higher mental function: The patient is awake, alert, oriented to self, place and time. Patient is following commands. No aphasia and no neglect. Cranial nerves: The pupils are round, equal and reactive to light and accommodation. Visual mckeon are full to confrontation throughout. Extraocular movement is intact no nystagmus is noted. Facial sensation is normal to touch throughout. The facial strength is normal throughout. Hearing is mildly decre ased bilaterally to hand rub. Tongue is midline and moved [id number] without any difficulty. No dysarthria is noted. Shoulder shrug is normal bilaterally. Motor: The strength is 5 over 5 throughout. Normal tone and bulk. Cerebellum: Normal finger to nose bilaterally. Sensation: Sensation is normal to touch throughout. Reflexes (right/left): 2+ throughout. Plantars are mute bilaterally. Results - Laboratory Findings CBC and BMP: 06/16/22 12:44 06/16/22 12:44 Abnormal Lab Findings: Abnormal Labs 06/16/22 06/16/22 06/16/22 12:44 12:44 12:44 RBC 2.99 L Hgb 9.4 L Hct 28.6 L Lymphocytes # 0.6 L APTT 20.9 L BUN 95 H Creatinine 3.34 H Glucose 100 H Magnesium 2.5 H Assessment and Plan Assessment: Transischemic attack (has weakness or arms and leg and slurring of speech. Episode lasted 20 minutes) History of B-cell lymphoma status post chemotherapy in 2016 and patient is a remission Chronic kidney insufficiency History of right renal cancer 2012 Hypertension History of hypoglycemia in the past that has resolved Rheumatoid arthritis History of DVT Plan: Ordered MRI Brain w/o, 2D echo, carotid duplex. Lipid panel is ordered is pending. Will not start antiplatelet since patient is hesitant and wants me to talk to her Fresh Meat Grader (Dr. Islas). I have called Dr. Islas and he stated he is ok with use of ASA or Plavix. Therefore, will start ASA 81mg daily for secondary stroke prophylaxis. Started on Lipitor 40mg qhs. neuro checks Q4 hour Cardiac monitoring PT, OT and ELECTRIC METER REPAIRER HELPER consulted Will defer the rest of medical management to primary team. For DVT prophylaxis: started on subq heparin 5000U every 8 hours. The plan is discussed with patient and her [id number]. Thank you for the consult. Time with Patient: Greater than 30
--- NOTE | 2022-06-16 17:03 | US ---
EXAMINATION TYPE: US carotid duplex BILAT DATE OF EXAM: 06/16/2022 COMPARISON: NONE CLINICAL HISTORY: stroke. stroke TECHNIQUE: Carotid duplex ultrasound examination. Indirect Doppler criteria was utilized. FINDINGS: EXAM MEASUREMENTS: RIGHT: Peak Systolic Velocity (PSV) cm/sec ----- Right CCA: 75.5 ----- Right ICA: 135.8 ----- Right ECA: 76.6 ICA/CCA ratio: 1.8 RIGHT: End Diastole cm/sec ----- Right CCA: 21.7 ----- Right ICA: 33.3 ----- Right ECA: 5.7 LEFT: Peak Systolic Velocity (PSV) cm/sec ----- Left CCA: 84.4 ----- Left ICA: 92.3 ----- Left ECA: 86.4 ICA/CCA ratio: 1.1 LEFT: End Diastole cm/sec ----- Left CCA: 21.5 ----- Left ICA: 25.4 ----- Left ECA: 0 VERTEBRALS (direction of flow): Right Vertebral: Antegrade Left Vertebral: Antegrade Rhythm: Normal ASSEMBLED WOOD PRODUCTS REPAIRER NOTES: No significant stenosis seen IMPRESSION: There is antegrade flow in the vertebral arteries. Images and measurements suggest less than 40% sten osis in both internal carotid arteries. Criteria for Assigning % of Stenosis / Diameter reduction (Estimation based on the indirect measurements of the internal carotid artery velocities (ICA PSV). 1. Normal (no stenosis)=ICA PSV < 125 cm/s: ratio < 2.0: ICA EDV<40 cm/s. 2. Less than 50% stenosis=ICA PSV < 125 cm/s: ratio < 2.0: ICA EDV<40 cm/s. 3. 50 to 69% stenosis=ICA PSV of 125 to 230 cm/s: ration 2.0 ? 4.0: ICA EDV 40-100 cm/s. 4. Greater than 70% stenosis to near occlusion= ICA PSV > 230 cm/s: ratio > 4.0: ICA EDV > 100 cm/s. 5. Near occlusion= ICA PSV velocities may be low or undetectable: variable ratio and ICA EDV. 6. Total occlusion=unable to detect flow.
[2022-06-16] MEDS ORDERED: ATORVASTATIN 40 MG TAB PO SCH (21:00)
[2022-06-16] MEDS ORDERED: traMADol 50 MG TAB PO PRN (21:20)
[2022-06-16] MEDS: HEPARIN SODIUM,PORCINE/PF 5,000 UNIT/0.5 ML SYRINGE SQ SCH ×2 (22:47→22:50)
[2022-06-16] MEDS: ATORVASTATIN 20 MG TAB PO SCH (22:47)
[2022-06-16] MEDS: METOPROLOL SUCCINATE (ER) 25 MG TAB.ER.24H PO SCH (22:47)
[2022-06-16] MEDS: PARoxetine 20 MG TAB PO SCH (22:48)
--- NOTE | 2022-06-16 22:59 | P.HPIM ---
History of Present Illness H&P Date: 06/16/22 Chief Complaint: Slurred speech and weakness Patient is a 77-year-old female with a known history of chronic kidney disease stage V, rheumatoid arthritis, history of right kidney cancer in 2012 status post surgery, B-cell lymphoma was on chemotherapy, history of DVT, anxiety /depression presents to ER due to episode of generalized weakness and slurred speech. Patient states that she woke up about 4 AM in the morning and noticed that her dog was barking at the time. Patient tried to get up but felt very weak and also states that her arms and legs were flapping. Also had difficulty speaking and slurred speech. She tried to get up but slid to the side of the bed. Patient did get better about 20 minutes later and was able to stand. She was able to inform her [id number] and was brought to ER. Otherwise denied any complaints of focal weakness. Denied any visual disturbance or facial droop. No recent illnesses or sick contacts. No fever no chills. No cough or sputum production. Patient felt slight headache but resolved now. Denies any recent illnesses. EKG showed sinus rhythm with first-degree AV block. Chest x-ray showed no acute cardiopulmonary disease/process. COPD changes. CT head on admission showed no acute intracranial abnormality. Mild bifrontal atrophy and mild burden of chronic small vessel ischemic disease. Laboratory data showed WBC 4.6 hemoglobin 9.4 and platelets 254, sodium 137 potassium 3.7 chloride 102 bicarb is 23 BUN 95 creatinine 3.34 and GFR 13 magnesium 2.511 is not elevated troponin x1 negative Urinalysis is negative for infection. Review of Systems Constitutional: Patient denies any fever or chills . no Generalized weakness. Abdomen: Patient denied any nausea or vomiting or abd. pain Cardiovascular: Patient denies any chest pain or short of breath no palpitations. Respiratory: patient denied any cough . no sputum production. No shortness of breath Neurologic: Patient denied any numbness or tingling headache. Musculoskeletal: Patient denies any complaints of joint swelling or deformity. Skin: Negative Psychiatric: Negative Endocrine: No heat or cold intolerance. No recent weight gain. Genitourinary: No dysuria or hematuria. All other 14 point ROS negative except the above Past Medical History Past Medical History: Cancer Additional Past Medical History / Comment(s): Hx diverticulitis Hx. arthritis Hx rt kidney cancer 2012, B-cell lymphoma, DVT- current. History of Any Multi-Drug Resistant Organisms: None Reported Past Surgical History: Hernia Repair, Hysterectomy Additional Past Surgical History / Comment(s): Hx Gastric bypass (1991) Hx left knee arthroscopy Hx cataracts bilat removed Past Anesthesia/Blood Transfusion Reactions: No Reported Reaction Past Psychological History: Anxiety, Depression Smoking Status: Never smoker Past Alcohol Use History: Rare Past Drug Use History: None Reported Medications and Allergies Home Medications Medication Instructions Recorded Confirmed Type ALPRAZolam [Xanax] 0.25 mg PO TID PRN 07/30/13 06/16/22 History PARoxetine [Paxil] 20 mg PO DAILY 07/30/13 06/16/22 History Simvastatin [Zocor] 40 mg PO DAILY 07/30/13 06/16/22 History Folic Acid 0.8 mg PO DAILY 08/11/15 06/16/22 History traMADol HCL [Ultram] 50 mg PO BID PRN 08/11/15 06/16/22 History Vitamin B Complex 1 tab PO DAILY 04/29/19 06/16/22 History Biotin [Ynvo-Jicz-Icvpf] 10,000 mcg PO DAILY 06/16/22 06/16/22 History Cyanocobalamin (Vitamin B-12) 3,000 mcg PO DAILY 06/16/22 06/16/22 History [Vitamin B-12] Diclofenac Sodium Gel [Voltaren 1 applic TOPICAL QID PRN 06/16/22 06/16/22 History Gel] Docusate Sodium 250 mg PO DAILY 06/16/22 06/16/22 History Metoprolol Succinate [Metoprolol 12.5 mg PO BID 06/16/22 06/16/22 History Succinate ER] Simethicone [Gas-X] 125 mg PO ACHS PRN 06/16/22 06/16/22 History amLODIPine [Norvasc] 2.5 mg PO DAILY 06/16/22 06/16/22 History calcitrioL [Calcitriol] 0.25 mcg PO TU 06/16/22 06/16/22 History Allergies Allergy/AdvReac Type Severity Reaction Status Date / Time No Known Allergies Allergy Verified 06/16/22 12:39 Physical Exam Vitals: Vital Signs Temp Pulse Resp BP Pulse Ox 06/16/22 16:00 97.7 F 76 13 148/72 06/16/22 15:00 97.8 F 64 15 163/75 06/16/22 14:00 98.2 F 61 12 152/87 06/16/22 13:00 97.8 F 61 11 L 167/74 06/16/22 12:02 97.8 F 68 15 159/78 06/16/22 11:44 98.3 F 70 20 145/70 99 Intake and Output 06/16/22 06/16/22 06/16/22 06:59 14:59 22:59 Other: Weight 55.338 kg PHYSICAL EXAMINATION: Patient is lying in the bed comfortably, no acute distress, awake alert and oriented.. HEENT: Normocephalic. Neck is supple. Pupils reactive. Nostrils clear. Oral cavity is moist. Neck reveals no JVD, carotid bruits, or thyromegaly. CHEST EXAMINATION: Trachea is central. Symmetrical expansion. Lung mckeon clear to auscultation and percussion. CARDIAC: Normal S1, S2 with no gallops. No murmurs ABDOMEN: Soft. Bowel sounds present. Nontender. No organomegaly. No abdominal bruits. Extremities: reveal no edema. No clubbing or cyanosis Neurologically awake, alert, oriented x3 with well-coordinated movements. No focal deficits noted Skin: No rash or skin lesions. Psychiatric: Coperative. Nonsuicidal, Musculoskeletal: No joint swelling or deformity. Normal range of motion. Results CBC & Chem 7: 06/16/22 12:44 06/16/22 12:44 Labs: Abnormal Lab Results - Last 24 Hours (Table) 06/16/22 06/16/22 06/16/22 Range/Units 12:44 12:44 12:44 RBC 2.99 L (3.80-5.40) m/uL Hgb 9.4 L (11.4-16.0) gm/dL Hct 28.6 L (34.0-46.0) % Lymphocytes # 0.6 L (1.0-4.8) k/uL APTT 20.9 L (22.0-30.0) sec BUN 95 H (7-17) mg/dL Creatinine 3.34 H (0.52-1.04) mg/dL Glucose 100 H (74-99) mg/dL Magnesium 2.5 H (1.6-2.3) mg/dL Thrombosis Risk Factor Assmnt - DVT/VTE Prophylaxis DVT/VTE Prophylaxis: Pharmacologic Prophylaxis ordered Assessment and Plan Assessment: Episode of generalized weakness and slurred speech. Lasted 20 minutes. Resolved now. Likely due to TIA. CKD stage V History of B-cell lymphoma status postchemotherapy History of DVT History of right renal cell carcinoma in 2011 Rheumatoid arthritis Anxiety/depression Hyperlipidemia DVT prophylaxis with heparin subcu Plan: Patient will be continued on telemetry monitoring. Stroke work-up including CT head and carotid duplex was ordered. Patient was started on aspirin and statins. Continue with neurochecks. Neurology is on board. PT OT and ELECTRICAL LOGGER consult. Continue to monitor blood pressure and add medications as needed. Continue to follow closely. Discussed with the patient and her [id number] at bedside in detail..
[2022-06-16] MEDS: ALPRAZolam 0.25 MG TAB PO PRN (23:08)
[2022-06-17 08:17] VITALS: RESP 16
[2022-06-17] MEDS: METOPROLOL SUCCINATE (ER) 25 MG TAB.ER.24H PO SCH (08:59)
[2022-06-17] MEDS: PARoxetine 20 MG TAB PO SCH (08:59)
[2022-06-17] MEDS: HEPARIN SODIUM,PORCINE/PF 5,000 UNIT/0.5 ML SYRINGE SQ SCH ×2 (09:00→16:08)
[2022-06-17] MEDS: ATORVASTATIN 20 MG TAB PO SCH (09:00)
[2022-06-17] MEDS ORDERED: ASPIRIN 81 MG PO SCH (09:00)
[2022-06-17] MEDS: ALPRAZolam 0.25 MG TAB PO PRN (09:20)
[2022-06-17 09:48] LABS: BUN/Creat Ratio 26.18 Ratio (12.00-20.00); Blood Urea Nitrogen 85.6 mg/dL (9.0-27.0); Calcium 8.4 mg/dL (8.7-10.3); Carbon Dioxide 24.9 mmol/L (20.0-27.5); Chloride 102 mmol/L (96-109); Chol/HDL Ratio 2.09 Ratio; Glucose 91 mg/dL (70-110); LDL Cholesterol,Calculated 54.2 mg/dL (0.0-131.0); Potassium 3.8 mmol/L (3.5-5.5); Sodium 138 mmol/L (135-145); VLDL Calculation 10.36 mg/dL (5.00-40.00)
--- NOTE | 2022-06-17 12:06 | P.PN ---
Subjective Progress Note Date: 06/17/22 The patient seen at bedside and feels at baseline. Denies of any neurological deficit. Objective - Vital Signs Vital signs: Vital Signs Temp 97.6 F 06/17/22 07:00 Pulse 60 06/17/22 07:00 Resp 16 06/17/22 07:00 BP 133/66 06/17/22 07:00 Pulse Ox 99 06/17/22 08:13 FiO2 21 06/17/22 08:13 Intake & Output 06/16/22 06/17/22 06/17/22 18:59 06:59 18:59 Intake Total 240 Balance 240 Weight 55.338 kg 55.338 kg Intake: Oral 240 Other: Voiding Method Toilet # Voids 2 - Exam GENERAL: The patient is lying in bed and is not in acute distress. NEUROLOGICAL: Higher mental function: The patient is awake, alert, oriented to self, place and time. Patient is following commands. No aphasia and no neglect. Cranial nerves: The pupils are round, equal and reactive to light and accommodation. Visual mckeon are full to confrontation throughout. Extraocular movement is intact no nystagmus is noted. Facial sensation is normal to touch throughout. The facial strength is normal throughout. Hearing is mildly decreased bilaterally to hand rub. Tongue is midline and moved [id number] without any difficulty. No dysarthria is noted. Shoulder shrug is normal bilaterally. Motor: The strength is 5 over 5 throughout. Normal tone and bulk. Cerebellum: Normal finger to nose bilaterally. Sensation: Sensation is normal to touch throughout. Reflexes (right/left): 2+ throughout. Plantars are mute bilaterally. Some of the workup during his hospital visit consisted of: Lipid panel is triglyceride 51, cholesterol is 124, LDLs 54 and HDL is 59. Urinalysis is negative for underlying urinary tract infection. CT of the head is reported as no acute intracranial abnormality seen. Mild bifrontal atrophy and mild burden of chronic small vessel ischemic disease. I personally reviewed the CT of the head and I agree with the report. EKG is reported as sinus rhythm with first-degree AV block. Septal myocardial infarction of indeterminate age. Carotid duplex is reported as there is at antegrade flow in the vertebral art eries. Images and measurements suggest less than 40% stenosis of both internal carotid arteries. - Labs CBC & Chem 7: 06/16/22 12:44 06/17/22 06:24 Labs: Abnormal Lab Results - Last 24 Hours (Table) 06/16/22 06/16/22 06/16/22 Range/Units 12:44 12:44 12:44 RBC 2.99 L (3.80-5.40) m/uL Hgb 9.4 L (11.4-16.0) gm/dL Hct 28.6 L (34.0-46.0) % Lymphocytes # 0.6 L (1.0-4.8) k/uL APTT 20.9 L (22.0-30.0) sec BUN 95 H (7-17) mg/dL Creatinine 3.34 H (0.52-1.04) mg/dL Est GFR (CKD-EPI)AfAm (60.0-200.0) Est GFR (CKD-EPI)NonAf (60.0-200.0) BUN/Creatinine Ratio (12.00-20.00) Ratio Glucose 100 H (74-99) mg/dL Calcium (8.7-10.3) mg/dL Magnesium 2.5 H (1.6-2.3) mg/dL 06/17/22 Range/Units 06:24 RBC (3.80-5.40) m/uL Hgb (11.4-16.0) gm/dL Hct (34.0-46.0) % Lymphocytes # (1.0-4.8) k/uL APTT (22.0-30.0) sec BUN 85.6 H (7-17) mg/dL Creatinine 3.3 H (0.52-1.04) mg/dL Est GFR (CKD-EPI)AfAm 15.0 L (60.0-200.0) Est GFR (CKD-EPI)NonAf 13.0 L (60.0-200.0) BUN/Creatinine Ratio 26.18 H (12.00-20.00) Ratio Glucose (74-99) mg/dL Calcium 8.4 L (8.7-10.3) mg/dL Magnesium (1.6-2.3) mg/dL Assessment and Plan Assessment: Transischemic attack (has weakness or arms and leg and slurring of speech. Episode lasted 20 minutes) History of B-cell lymphoma status post chemotherapy in 2015 and patient is a remission Chronic kidney insufficiency History of right renal cancer 2012 Hypertension History of hypoglycemia in the past that has resolved Rheumatoid arthritis History of DVT Plan: Pending MRI Brain w/o, 2D echo. Started on ASA 81mg daily for secondary stroke prophyalxis. Also started on Li pitor 40mg qhs for secondary stroke prophylaxis. neuro checks Q4 hour Cardiac monitoring PT, OT and CLERICAL ADVISER consulted Will defer the rest of medical management to primary team. For DVT prophylaxis: On subq heparin 5000U every 8 hours. The plan is discussed with patient and her nurse. Time with Patient: Less than 30
[2022-06-17] MEDS: SODIUM CHLORIDE 0.9% 1,000 ML IV SCH (16:08)
[2022-06-17 16:12] VITALS: BP 135/76; PULSE 63; TEMP 98.6
== END 2022-06-17 18:41 | disposition home or self-care (01) ==
LOC: EC 11:27 → 6NMEDSUR 14:10
PROVIDERS: ADMIT Internal Medicine; ATTEND Internal Medicine
DX: R53.1 Weakness (principal); R47.81 Slurred speech; I13.2 Hypertensive heart and chronic kidney disease with heart failure and with stage 5 chronic kidney disease, or end stage renal disease; I50.9 Heart failure, unspecified; N18.5 Chronic kidney disease, stage 5; F32.A Depression, unspecified; F41.9 Anxiety disorder, unspecified; M06.9 Rheumatoid arthritis, unspecified; E78.5 Hyperlipidemia, unspecified; Z86.718 Personal history of other venous thrombosis and embolism; Z85.528 Personal history of other malignant neoplasm of kidney; Z85.72 Personal history of non-Hodgkin lymphomas; Z90.5 Acquired absence of kidney; Z92.21 Personal history of antineoplastic chemotherapy; Z98.84 Bariatric surgery status; Z79.899 Other long term (current) drug therapy
CPT/HCPCS: 96361 ×3; 96372 ×2; 96360; 99285; 36415; 94760; 93005; 97161; 80061; 80053; 80048; 83605; 83735; 84484; 85025; 85610; 85730; 81003; 71046; 93880; 70450; G0378 ×2; J1644 ×2

== ENCOUNTER → 2022-06-29 | Outpatient (CLI) | payer MEDICARE ==
--- NOTE | 2022-06-30 08:15 | MM ---
Reason for Exam: Screening (asymptomatic). Last screening mammogram was performed 12 month(s) ago. Patient History: Menarche at age 10. First Full-Term at age 18. Left ovary removed at age 33. Right ovary removed at age 33. Hysterectomy at age 33. Postmenopausal. Other cancer, age 66. Estrogen for 5 years from age 33 until age 38. Hormonal Contraceptives, starting at age 20 for 1 year. Risk Values: Brooke 5 year model risk: 1.4%. NCI Lifetime model risk: 2.7%. Prior Study Comparison: 12/09/2020 Left Diagnostic Mammogram, [facility]. 06/20/2021 Bilateral Diagnostic Mammogram, [facility]. 01/12/2022 Left MG 3D diag mammo w/cad , [facility]. Tissue Density: The breast tissue is extremely dense which could obscure a lesion on mammography. Findings: Analyzed By CAD. There are a few scattered benign-appearing round and punctate calcifications bilaterally redemonstrated. Benign-appearing vascular calcification is redemonstrated. There is no suspicious new group of microcalcifications or new suspicious mass in either breast. Overall Assessment: Benign, BI-RAD 2 Management: Screening Mammogram of both breasts in 1 year. Some advise bilateral breast ultrasound surveillance in patients with background dense tissue. A clinical breast exam by your physician is recommended on an annual basis and results should be correlated with mammographic findings. Electronically signed and approved by: Shree Cervantes M.D.
== END | disposition home or self-care (01) ==
LOC: RADMAMWWP 13:02
PROVIDERS: ATTEND Internal Medicine
DX: Z12.31 Encounter for screening mammogram for malignant neoplasm of breast (principal); Z78.0 Asymptomatic menopausal state
CPT/HCPCS: 77063; 77067

== ENCOUNTER → 2022-07-13 | Outpatient (CLI) | payer MEDICARE ==
[2022-07-13 15:32] LABS: Appearance,Urine Clear (Clear); Bilirubin,Urine Negative (Negative); Blood,Urine Negative (Negative); Color,Urine Yellow (Yellow); Ketones,Urine Negative (Negative); Nitrite,Urine Negative (Negative); Specific Gravity,Urine 1.012 (1.001-1.030); Urobilinogen,Urine 0.2 (0.2,1.0)
[2022-07-13 15:35] LABS: Basophils # (A) 0.05 X 10*3/uL (0.00-0.10); Basophils % (A) 1.3 %; Eosinophils # (A) 0.57 X 10*3/uL (0.04-0.35); Eosinophils % (A) 15.1 %; HGB 8.2 g/dL (12.0-15.0); Immature Grans, Automated 0.3 %; Lymphocytes # (A) 0.88 X 10*3/uL (0.90-5.00); Lymphocytes % (A) 23.3 %; MCH 30.8 pg (27.0-32.0); MCHC 30.4 g/dL (32.0-37.0); MCV 101.5 fL (80.0-97.0); Mean Platelet Volume 9.9 fL (9.5-12.2); Monocytes # (A) 0.51 X 10*3/uL (0.20-1.00); Monocytes % (A) 13.5 %; NRBC Per 100 WBC 0 /100 WBCS (0.0-0.0); Neutrophils # (A) 1.75 X 10*3/uL (1.80-7.70); Neutrophils % (A) 46.5 %; Platelet Count 205 X 10*3/uL (140-440); RBC 2.66 X 10*6/uL (4.10-5.20); Reticulocyte % 0.99 % (0.10-1.80); WBC 3.77 X 10*3/uL (4.50-10.00)
[2022-07-13 15:54] LABS: % Iron Saturation 50.24 (12.00-45.00); ALT 19 U/L (8-44); AST 26 U/L (13-35); African American GFR (CKD) 14.2 (60.0-200.0); Albumin 3.9 g/dL (3.8-4.9); Albumin/Globulin Ratio 2.09 (1.60-3.17); Alkaline Phosphatase 49 U/L (41-126); BUN/Creat Ratio 18.51 Ratio (12.00-20.00); Blood Urea Nitrogen 63.5 mg/dL (9.0-27.0); Calcium 8.5 mg/dL (8.7-10.3); Carbon Dioxide 21.4 mmol/L (20.0-27.5); Chloride 105 mmol/L (96-109); Globulin 1.9 g/dL (1.6-3.3); Glucose 75 mg/dL (70-110); Iron 147 ug/dL (50-170); Non-African American GFR(CKD) 12.2 (60.0-200.0); Phosphorus 4.7 mg/dL (2.4-5.1); Potassium 4.3 mmol/L (3.5-5.5); Sodium 139 mmol/L (135-145); Total Bilirubin <0.15 mg/dL (0.30-1.20); Total Iron Binding Capacity 293 ug/dL (228-460); Total Protein 5.8 g/dL (6.2-8.2); Uric Acid 5.5 mg/dL (2.9-7.7)
[2022-07-13 15:55] LABS: Erythrocyte Sedimentation Rate 7 mm/Hr (0-30)
[2022-07-13 16:07] LABS: Protein, Total 5.9 g/dL (6.2-8.2)
[2022-07-13 16:08] LABS: Haptoglobin 89.3 mg/dL (31.2-198.0)
[2022-07-14 06:36] LABS: Total Protein 24 Hour,Urine 131.5 mg/24Hr (0.0-165.0); Total Volume 24 Hour,Urine 1400 mL
[2022-07-14 13:03] LABS: Free Kappa Lt Chain Qnt, Serum 6.37 mg/dL (0.33-1.94); Free Lambda Lt Chain Qnt, Seru 3.01 mg/dL (0.57-2.63)
[2022-07-14 14:49] LABS: Albumin 3.77 g/dL (3.80-4.90); Gamma Globulin 0.65 g/dL (0.70-1.50)
== END | disposition home or self-care (01) ==
LOC: LABWHC1 09:51
PROVIDERS: ATTEND Internal Medicine Hematology & Oncology
DX: I12.9 Hypertensive chronic kidney disease with stage 1 through stage 4 chronic kidney disease, or unspecified chronic kidney disease (principal); D60.9 Acquired pure red cell aplasia, unspecified; E78.5 Hyperlipidemia, unspecified; N18.4 Chronic kidney disease, stage 4 (severe)
CPT/HCPCS: 36415; 80053; 81003; 81050; 82043; 82306; 82570; 82607; 82728; 82747; 83010; 83540; 83550; 83735; 83883; 83921; 83970; 84100; 84156; 84165; 84550; 85025; 85045; 85652; 86334

== ENCOUNTER → 2022-07-14 | Outpatient (CLI) | payer MEDICARE ==
--- NOTE | 2022-07-14 11:17 | MR ---
EXAMINATION TYPE: MR brain wo con DATE OF EXAM: 07/14/2022 COMPARISON: NONE HISTORY: Hx of TIA, cerebral infarction without residual deficits TECHNIQUE: T1-weighted sagittal, T2, FLAIR, and diffusion axial, and T2 coronal coronal views of the brain are submitted. FINDINGS: There is no evidence of acute ischemia. The ventricles, basal cisterns, and sulci overlying the conv exities are consistent with a mild generalized degenerative change. Both focal and confluent areas of abnormal signal involving the white matter bilaterally which are no nspecific but most of ischemia.. There is no mass effect. Craniocervical junction maintained. There is a partially empty sella turcica. Orbits are symmetric. C hanges of mild chronic sinusitis. Changes of sinusitis. Dural calcification signal incidentally noted along the anterior hemispheric fissure. IMPRESSION: 1. No acute intracranial process. 2. Mild degenerative and nonspecific white matter change most typical of remote white matter ischemia . 2. Incidental note made of partially empty sella turcica
== END | disposition home or self-care (01) ==
LOC: RADMRIMAIN 09:30
PROVIDERS: ATTEND Internal Medicine
DX: R90.82 White matter disease, unspecified (principal); G93.89 Other specified disorders of brain; Z86.73 Personal history of transient ischemic attack (TIA), and cerebral infarction without residual deficits
CPT/HCPCS: 70551

== ENCOUNTER → 2022-08-14 | Outpatient (CLI) | payer MEDICARE ==
--- NOTE | 2022-08-14 16:37 | XR ---
EXAMINATION TYPE: XR bone survey complete DATE OF EXAM: 08/14/2022 COMPARISON: None HISTORY: None TECHNIQUE: Multiple images were obtained for bone survey FINDINGS: Cervical spine: 2 views. Some facet changes are present. Degenerative disc changes are present C5-6. Posterior endplate spurring is present at C5. Prevertebral space is normal. Posterior spinal lamellar line is intact. CHEST: Heart size is normal. Pulmonary vessels ureters normal. Lungs are clear. Note is made of a lar ge calcification in the left axillary region Humeri: No suspicious lytic areas are evident. There is advanced degenerative changes at the left dannie ulder. Findings could be related to old fracture. Calvarium: There is dense calcification along the falx. There is a lucency within the left parietal r egion and additional lucency may be minimally more inferior left calvarium. In the frontal projection there is a suggestion of a right occipital ill-defined lucency on the right. Pelvis: Femoral head articulate with the acetabulum. Sacroiliac joints and symphysis pubis are normal . Thoracic spine: Scoliosis and lower thoracic spine. 3 degenerative disc changes are present. Lumbar spine: Scoliosis present with convexity to left centered at L2. Degenerative disc changes are present L1-L3 4, L4-5 Femurs: Femoral heads articulate with the acetabulum. No acute fractures are evident. Degenerative shaina int changes at the knees. IMPRESSION: 1. There are couple of lucencies suspicious for lytic lesions within the calvarium. 2. Additional finding more likely related to degenerative joint disease. #3 there may be old humeral neck fracture or advanced degenerative changes of the proximal left humerus.
== END | disposition home or self-care (01) ==
LOC: RADXRMAIN 12:06
PROVIDERS: ATTEND Internal Medicine Hematology & Oncology
DX: D60.9 Acquired pure red cell aplasia, unspecified (principal); N18.9 Chronic kidney disease, unspecified; Z85.72 Personal history of non-Hodgkin lymphomas; Z85.528 Personal history of other malignant neoplasm of kidney
CPT/HCPCS: 77075

== ENCOUNTER → 2022-08-14 | Outpatient (CLI) | payer MEDICARE ==
[2022-08-15 02:49] LABS: % Iron Saturation 18.44 (12.00-45.00); African American GFR (CKD) 11.4 (60.0-200.0); Albumin 4.4 g/dL (3.8-4.9); Albumin/Globulin Ratio 2.24 (1.60-3.17); Anion Gap 15.7 mmol/L (10.00-18.00); BUN/Creat Ratio 14.78 Ratio (12.00-20.00); Blood Urea Nitrogen 60.9 mg/dL (9.0-27.0); Calcium 8.8 mg/dL (8.7-10.3); Carbon Dioxide 19.9 mmol/L (20.0-27.5); Magnesium 2.5 mg/dL (1.5-2.4); Non-African American GFR(CKD) 9.8 (60.0-200.0); Phosphorus 6.3 mg/dL (2.4-5.1); Potassium 4.6 mmol/L (3.5-5.5); Total Bilirubin 0.2 mg/dL (0.30-1.20); Total Protein 6.3 g/dL (6.2-8.2); Uric Acid 6.4 mg/dL (2.9-7.7)
[2022-08-15 02:51] LABS: HCT 34.2 % (37.2-46.3); HGB 10.1 g/dL (12.0-15.0); MCH 31.2 pg (27.0-32.0); MCHC 29.5 g/dL (32.0-37.0); MCV 105.6 fL (80.0-97.0); Mean Platelet Volume 9.9 fL (9.5-12.2); NRBC Per 100 WBC 0 /100 WBCS (0.0-0.0); Platelet Count 229 X 10*3/uL (140-440); RBC 3.24 X 10*6/uL (4.10-5.20); RDW 14.2 % (11.5-14.5); WBC 4.87 X 10*3/uL (4.50-10.00)
[2022-08-15 04:39] LABS: Basophils # (A) 0.04 X 10*3/uL (0.00-0.10); Basophils % (A) 0.8 %; Eosinophils # (A) 0.43 X 10*3/uL (0.04-0.35); Eosinophils % (A) 8.8 %; Immature Grans, Automated 0.2 %; Lymphocytes # (A) 0.89 X 10*3/uL (0.90-5.00); Lymphocytes % (A) 18.3 %; Monocytes # (A) 0.49 X 10*3/uL (0.20-1.00); Monocytes % (A) 10.1 %; Neutrophils # (A) 3.01 X 10*3/uL (1.80-7.70); Neutrophils % (A) 61.8 %
[2022-08-15 06:09] LABS: Appearance,Urine Clear (Clear); Bilirubin,Urine Negative (Negative); Blood,Urine Negative (Negative); Color,Urine Yellow (Yellow); Ketones,Urine Negative (Negative); Nitrite,Urine Negative (Negative); Specific Gravity,Urine 1.011 (1.001-1.030); Urobilinogen,Urine 0.2 (0.2,1.0)
[2022-08-15 06:10] LABS: Urine Creatinine 45.3 mg/dL (28.0-217.0)
== END | disposition home or self-care (01) ==
LOC: LABWHC1 13:27
PROVIDERS: ATTEND Nurse Practitioner Family
DX: N25.81 Secondary hyperparathyroidism of renal origin (principal); N18.4 Chronic kidney disease, stage 4 (severe); D63.1 Anemia in chronic kidney disease; N39.0 Urinary tract infection, site not specified; E55.9 Vitamin D deficiency, unspecified; M10.9 Gout, unspecified; R80.9 Proteinuria, unspecified
CPT/HCPCS: 36415; 80053; 81003; 82043; 82306; 82570; 82728; 83540; 83550; 83735; 83970; 84100; 84550; 85025

== ENCOUNTER 2022-08-29 10:11 | Day surgery (SDC) | payer MEDICARE ==
[2022-08-29] MEDS ORDERED: SODIUM CHLORIDE 0.9% 1,000 ML IV ONE (11:14)
[2022-08-29 11:16] VITALS: TEMP 96.8
[2022-08-29 11:32] VITALS: BMI 23.6
[2022-08-29 11:38] LABS: Glucose,Whole Blood 81 mg/dL (70-110)
[2022-08-29] MEDS ORDERED: PROPOFOL 10 MG/ML 20 ML VIAL IV ONE (12:10)
[2022-08-29] MEDS ORDERED: LIDOCAINE 2% INJ 20 MG/ML (2 ML VIAL) ONE (12:10)
--- NOTE | 2022-08-29 12:19 | P.GSHP ---
History of Present Illness H&P Date: 08/29/22 Chief Complaint: anemia, GERD, screening 77-year-old female here today for EGD and colonoscopy. Recently with worsening anemia. Iron is low. Patient with renal failure as well. No family history of colon cancer. Last colonoscopy over 10 years ago. Past Medical History Past Medical History: Cancer, Heart Failure, CVA/TIA, Eye Disorder, GERD/Reflux, Hyperlipidemia, Hypertension, Musculoskeletal Disorder, Osteoarthritis (OA), Aleksey al Disease Additional Past Medical History / Comment(s): Hx diverticulitis Hx. 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, cataracts, hypoglycemia episodes resulting syncope, superficial blood clot History of Any Multi-Drug Resistant Organisms: None Reported Past Surgical History: Bariatric Surgery, Hernia Repair, Hysterectomy, Tonsillectomy Additional Past Surgical History / Comment(s): Hx Gastric bypass (1991) Hx left knee injections, Hx cataracts bilat removed, right nephrectomy, mediport placement and removal Past Anesthesia/Blood Transfusion Reactions: No Reported Reaction Past Psychological History: Anxiety, Depression Smoking Status: Never smoker Past Alcohol Use History: Rare Past Drug Use History: None Reported - Past Family History Mother Family Medical History: Diabetes Mellitus Father Family Medical History: Diabetes Mellitus Medications and Allergies Home Medications Medication Instructions Recorded Confirmed Type ALPRAZolam [Xanax] 0.25 mg PO TID PRN 07/30/13 08/29/22 History PARoxetine [Paxil] 20 mg PO DAILY 07/30/13 08/29/22 History Simvastatin [Zocor] 40 mg PO DAILY 07/30/13 08/29/22 History Folic Acid 0.8 mg PO DAILY 08/11/15 08/29/22 History traMADol HCL [Ultram] 50 mg PO BID PRN 08/11/15 08/29/22 History Vitamin B Complex 1 tab PO DAILY 04/29/19 08/29/22 History Biotin [Guxl-Artr-Xdedc] 10,000 mcg PO DAILY 06/16/22 08/29/22 History Cyanocobalamin (Vitamin B-12) 3,000 mcg PO DAILY 06/16/22 08/29/22 History [Vitamin B-12] Diclofenac Sodium Gel [Voltaren 1 applic TOPICAL QID PRN 06/16/22 08/29/22 History Gel] Metoprolol Succinate [Metoprolol 12.5 mg PO BID 06/16/22 08/29/22 History Succinate ER] amLODIPine [Norvasc] 2.5 mg PO DAILY 06/16/22 08/29/22 History Aspirin 81 mg PO DAILY #30 tab 06/17/22 08/29/22 Rx Calcium Acetate [PhosLo] 667 mg PO BID 08/29/22 08/29/22 History Psyllium Husk (with Sugar) 1 dose PO DAILY 08/29/22 08/29/22 History [Metamucil Powder] Sodium Bicarbonate 325 mg PO BID 08/29/22 08/29/22 History Allergies Allergy/AdvReac Type Severity Reaction Status Date / Time No Known Allergies Allergy Verified 08/29/22 11:05 Surgical - Exam Vital Signs Temp Pulse Resp BP Pulse Ox 96.8 F L 60 16 160/74 100 08/29/22 11:14 08/29/22 11:14 08/29/22 11:14 08/29/22 11:14 08/29/22 11:14 Physical exam: General: Well-developed, well-nourished HEENT: Normocephalic, sclerae nonicteric Abdomen: Nontender, nondistended Extremities: No edema Neuro: Alert and oriented Assessment and Plan (1) Iron deficiency anemia Narrative/Plan: Will proceed with upper and lower endoscopy Current Visit: Yes Status: Acute Code(s): D50.9 - IRON DEFICIENCY ANEMIA, UNSPECIFIED SNOMED Code(s): 64698816
--- NOTE | 2022-08-29 12:54 | P.PCN ---
Date of Procedure: 08/29/22 Procedure(s) Performed: PREOPERATIVE DIAGNOSIS: Iron deficiency anemia, screening POSTOPERATIVE DIAGNOSIS: Mild inflammation at GJ anastomosis, mild gastritis, diverticulosis, tortuous colon, melanosis coli PROCEDURE: 1. EGD with biopsy 2. Colonoscopy incomplete ANESTHESIA: MAC SURGEON: Maldonado Sheikh M.D. SPECIMENS: Anastomosis ENDOSCOPIC PROCEDURE: The patient was on the endoscopy table in the left decubitus position. The Olympus gastroscope was inserted into the oropharynx and passed under direct visualization to the region of the jejunum. The patient's anatomy was somewhat unusual. Patient reportedly had a previous gastric bypass. The stomach as inspected appeared shorter than expected and narrow. The small bowel just distal to the stomach revealed mild inflammation and a biopsy was taken. This was labeled gastrojejunostomy. A small hiatal hernia was suspected. The esophagus appeared normal. The patient was kept on the endoscopy table in the left decubitus position. The Olympus colonoscope was inserted into the anus and passed under direct visualization to the hepatic flexure. The patient had significant tortuosity making it difficult to reach the cecum. Multiple position changes and abdominal wall pressure were attempted. From the hepatic flexure the scope was withdrawn. There was melanosis coli and diverticulosis seen. There was no neoplastic inflammatory or polypoid lesions throughout the visualized transverse descending sigmoid and rectum. Digital rectal examination was normal. The patient was taken to the recovery room in stable condition per anesthesia guidelines. RECOMMENDATIONS: Await biopsy results. We will advise barium enema to complete colonic workup given the patient's anemia.
[2022-08-29 12:56] VITALS: RESP 18
[2022-08-29] MEDS ORDERED: LIDOCAINE 1% (10MG/ML) FOR IV START INTRADERMA PRN (12:57)
[2022-08-29] MEDS ORDERED: LACTATED RINGERS 1,000 ML IV SCH (12:57)
[2022-08-29 13:12] VITALS: BP 127/78; PULSE 65
== END 2022-08-29 14:00 | disposition home or self-care (01) ==
LOC: ORWHC2ENDO 10:11
PROVIDERS: ATTEND Surgery
DX: Z12.11 Encounter for screening for malignant neoplasm of colon (principal); K29.50 Unspecified chronic gastritis without bleeding; K57.30 Diverticulosis of large intestine without perforation or abscess without bleeding; D50.9 Iron deficiency anemia, unspecified; K56.2 Volvulus; I50.9 Heart failure, unspecified; I11.0 Hypertensive heart disease with heart failure; E78.5 Hyperlipidemia, unspecified; K21.9 Gastro-esophageal reflux disease without esophagitis; M19.90 Unspecified osteoarthritis, unspecified site; F41.9 Anxiety disorder, unspecified; F32.A Depression, unspecified; Z85.528 Personal history of other malignant neoplasm of kidney; Z86.59 Personal history of other mental and behavioral disorders; Z86.73 Personal history of transient ischemic attack (TIA), and cerebral infarction without residual deficits; Z79.899 Other long term (current) drug therapy; Z79.82 Long term (current) use of aspirin
CPT/HCPCS: 88305; 43239; G0121; J2704; J2001; 45378

== ENCOUNTER → 2022-08-30 | Outpatient (CLI) | payer MEDICARE ==
--- NOTE | 2022-08-30 16:56 | FL ---
EXAMINATION TYPE: FL barium enema DATE OF EXAM: 08/30/2022 COMPARISON: NONE HISTORY: 77-year-old female D50.9, Z53.09. Incomplete colonoscopy to the hepatic flexure due to tortu ous bowel. Patient with anemia. TECHNIQUE: A single contrast barium enema study is performed as requested. A total of 1 minute 14 s econds of fluoroscopic time was utilized during procedure and 57 images obtained. Total dose area pr oduct (DAP) in uGy*m?, mGy*cm? (or similar): 55. FINDINGS: Rigger Apprentice view of the abdomen shows overall non-obstructive bowel gas pattern. There is a degenerated lev oconvex scoliosis and a degenerated left L5 hemisacralization. Residual sxac-cw-xjgjfguu air remain scattered throughout the colon. Decision is made to proceed with the exam. There is redundancy noted of both the sigmoid, descending, and transverse colons. There are mottled filling defects throughout the ascending colon and cecum suspected to be on the bas is of residual stool. This significantly limits the examination. However, no suspicious annular narro wing is identified. The remaining portions of the colon, along for the limitations of bowel overlap, show no convincing mass or polyp. Mild diverticular change along the sigmoid colon The terminal ileum was refluxed and appears within normal limits. IMPRESSION: 1. Redundancy of the transverse, descending, and sigmoid colons. 2. Mild sigmoid diverticulosis. 3. Significant limitation in assessment of the cecum and ascending colon due to mottled filling defec ts, suspected residual stool material. 4. No obvious annular constricting lesion is identified.
== END | disposition home or self-care (01) ==
LOC: RADFLMAIN 08:54
PROVIDERS: ATTEND Surgery
DX: D50.9 Iron deficiency anemia, unspecified (principal); K57.30 Diverticulosis of large intestine without perforation or abscess without bleeding; Z53.09 Procedure and treatment not carried out because of other contraindication
CPT/HCPCS: 74270

== ENCOUNTER 2022-09-01 11:38 | Day surgery (SDC) | payer MEDICARE ==
[2022-08-31 10:25] VITALS: BMI 22.8
[~2022-09-01 11:38] MED LIST: ACETAMINOPHEN TAB 500 MG TAB PO PRN; HEPARIN SODIUM,PORCINE/PF 5,000 UNIT/0.5 ML SYRINGE SQ PRN
[2022-09-01] MEDS ORDERED: SODIUM CHLORIDE 0.9% 1,000 ML IV ONE ×2 (12:02)
[2022-09-01] MEDS ORDERED: ONDANSETRON 4 MG/2 ML VIAL ONE (12:13)
--- NOTE | 2022-09-01 12:13 | P.GSHP ---
History of Present Illness H&P Date: 09/01/22 Chief Complaint: Renal failure 77-year-old female known to our service. Patient with progressive renal insufficiency. History of previous right nephrectomy. Patient is interested in peritoneal dialysis catheter insertion. A previous open gastric bypass and right inguinal hernia repair. No known hernias. Past Medical History Past Medical History: Cancer, Heart Failure, CVA/TIA, Eye Disorder, GERD/Reflux, Hyperlipidemia, Hypertension, Musculoskeletal Disorder, Osteoarthritis (OA), Renal Disease, Syncope Additional Past Medical History / Comment(s): Hx diverticulitis. Hx right kidney cancer 2011, B-cell lymphoma. Hx TIA 05/2022. Chronic kidney disease stage V with dialysis being initiated soon. 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 Cataracts. Hx hypoglycemic episodes resulting in syncope. Hx superficial blood clot. History of Any Multi-Drug Resistant Organisms: None Reported Past Surgical History: Bariatric Surgery, Hernia Repair, Hysterectomy, Tonsillectomy Additional Past Surgical History / Comment(s): Hx Gastric bypass (1991), left knee injections, bilateral cataracts removed, right nephrectomy, mediport placement and removal, EGD, colonoscopy. Past Anesthesia/Blood Transfusion Reactions: No Reported Reaction Past Psychological History: Anxiety, Depression Smoking Status: Never smoker Past Alcohol Use History: Rare Past Drug Use History: None Reported - Past Family History Mother Family Medical History: Diabetes Mellitus Father Family Medical History: Diabetes Mellitus Medications and Allergies Home Medications Medication Instructions Recorded Confirmed Type ALPRAZolam [Xanax] 0.25 mg PO TID PRN 07/30/13 09/01/22 History PARoxetine [Paxil] 20 mg PO HS 07/30/13 09/01/22 History Simvastatin [Zocor] 40 mg PO DAILY 07/30/13 09/01/22 History Folic Acid 0.8 mg PO DAILY 08/11/15 09/01/22 History traMADol HCL [Ultram] 50 mg PO BID PRN 08/11/15 09/01/22 History Vitamin B Complex 1 tab PO DAILY 04/29/19 09/01/22 History Biotin [Cqnr-Hqpw-Djsuo] 10,000 mcg PO DAILY 06/16/22 09/01/22 History Cyanocobalamin (Vitamin B-12) 3,000 mcg PO DAILY 06/16/22 09/01/22 History [Vitamin B-12] Diclofenac Sodium Gel [Voltaren 1 applic TOPICAL QID PRN 06/16/22 09/01/22 History Gel] Metoprolol Succinate [Metoprolol 12.5 mg PO BID 06/16/22 09/01/22 History Succinate ER] amLODIPine [Norvasc] 2.5 mg PO QAM 06/16/22 09/01/22 History Aspirin 81 mg PO DAILY #30 tab 06/17/22 09/01/22 Rx Calcium Acetate [PhosLo] 667 mg PO BID 08/29/22 09/01/22 History Famotidine [Pepcid] 20 mg PO BID #60 tablet 08/29/22 09/01/22 Rx Psyllium Husk (with Sugar) 1 dose PO DAILY 08/29/22 09/01/22 History [Metamucil Powder] Sodium Bicarbonate 325 mg PO BID 08/29/22 09/01/22 History Allergies Allergy/AdvReac Type Severity Reaction Status Date / Time No Known Allergies Allergy Verified 09/01/22 12:03 Surgical - Exam Vital Signs Temp Pulse Resp BP Pulse Ox 97.0 F L 65 16 175/76 100 09/01/22 11:59 09/01/22 11:59 09/01/22 11:59 09/01/22 11:59 09/01/22 11:59 Physical exam: General: Well-developed, well-nourished HEENT: Normocephalic, sclerae nonicteric Abdomen: Nontender, nondistended, previous scars noted Extremities: No edema Neuro: Alert and oriented Assessment and Plan (1) Renal failure Narrative/Plan: Will proceed with open peritoneal dialysis catheter insertion at this time. Risks of bleeding, infection, leak, hernia, poor function, peritonitis, inability to place catheter, bowel injury reviewed. She understands and wishes to proceed. Current Visit: Yes Status: Acute Code(s): N19 - UNSPECIFIED KIDNEY FAILURE SNOMED Code(s): 23640939
[2022-09-01] MEDS ORDERED: DEXAMETHASONE SOD PHOSPHATE 4 MG/ML 1 ML VIAL IVP ONE (12:30)
[2022-09-01 12:35] LABS: Glucose,Whole Blood 80 mg/dL (70-110)
[2022-09-01] MEDS ORDERED: ePHEDrine 50 MG/ML 1 ML VIAL ONE (13:18)
[2022-09-01] MEDS ORDERED: SUCCINYLCHOLINE CHLORIDE 200 MG/10 ML VIAL IV ONE (13:18)
[2022-09-01] MEDS ORDERED: MIDAZOLAM 2 MG/2 ML VIAL ONE (13:18)
[2022-09-01] MEDS ORDERED: PROPOFOL 10 MG/ML 20 ML VIAL IV ONE (13:18)
[2022-09-01] MEDS ORDERED: fentaNYL (PF) 50 MCG/ML 2 ML AMP ONE (13:18)
[2022-09-01] MEDS ORDERED: LIDOCAINE 2% INJ 20 MG/ML (2 ML VIAL) ONE (13:18)
[2022-09-01] MEDS ORDERED: BUPIVACAINE (PF) 0.25% 30 ML VIAL SQ ONE ×2 (13:40)
[2022-09-01 14:21] VITALS: RESP 14; TEMP 97.2
[2022-09-01 14:26] LABS: Glucose,Whole Blood 107 mg/dL (70-110)
[2022-09-01] MEDS ORDERED: NALOXONE 0.4 MG/ML 1 ML VIAL IV PRN (14:45)
[2022-09-01] MEDS ORDERED: traMADol 50 MG TAB PO PRN (14:45)
[2022-09-01] MEDS ORDERED: ACETAMINOPHEN TAB 325 MG TAB PO PRN (14:45)
--- NOTE | 2022-09-01 14:47 | P.OP ---
Date of Procedure: 09/01/22 Procedure(s) Performed: PREOPERATIVE DIAGNOSIS: Renal failure POSTOPERATIVE DIAGNOSIS: Same PROCEDURE: Peritoneal dialysis catheter insertion SURGEON: Kori EBL: Minimal ANESTHESIA: Sedation plus local COMPLICATIONS: None OPERATIVE PROCEDURE: The patient was placed in the operative table in the supine position. The abdomen was prepped and draped in usual sterile fashion. A small horizontal incision was made in the left periumbilical location. Dissection down through the subcutaneous tissues took place using electrocautery. The anterior rectus was divided vertically using the scalpel. The rectus was bluntly. The posterior rectus was visualized. An 0 Vicryl pursestring was placed. A small opening in the posterior rectus fascia and peritoneum took place using a Metzenbaum scissors. There were no adhesions to the suture that was placed. The pigtail catheter was advanced into the pelvis over a stylette. No resistance was met. The inner cuff was secured to the fascia using the 0 Vicryl pursestring that was placed. The catheter was tunneled to an exit site in the left lateral lower quadrant. The catheter was connected to the 1 L bag of saline and approximated 800 mL of saline was easily introduced into the peritoneal cavity. The fluid was then allowed to evacuate. The majority of the fluid was returned. The anterior rectus fascia was then reapproximated using a running 0 Vicryl stitch. The subcutaneous tissues reprepped using 3-0 Vicryl sutures and the skin using 4-0 Monocryl sutures. The outpatient dialysis adapter was applied to the end of the catheter. Sterile dressings were then applied after skin glue was placed over the incision. DISPOSITION: Stable to recovery room
[2022-09-01 15:09] VITALS: BP 155/72; PULSE 80
== END 2022-09-01 15:25 | disposition home or self-care (01) ==
LOC: OR 11:38
PROVIDERS: ATTEND Surgery
DX: I13.2 Hypertensive heart and chronic kidney disease with heart failure and with stage 5 chronic kidney disease, or end stage renal disease (principal); N18.6 End stage renal disease; I50.9 Heart failure, unspecified; Z99.2 Dependence on renal dialysis; E78.5 Hyperlipidemia, unspecified; M19.90 Unspecified osteoarthritis, unspecified site; F41.9 Anxiety disorder, unspecified; F32.A Depression, unspecified; Z85.72 Personal history of non-Hodgkin lymphomas; Z85.528 Personal history of other malignant neoplasm of kidney; Z92.21 Personal history of antineoplastic chemotherapy; Z98.0 Intestinal bypass and anastomosis status; F10.20 Alcohol dependence, uncomplicated; Z79.899 Other long term (current) drug therapy; Z79.82 Long term (current) use of aspirin
CPT/HCPCS: 49421; C1752; J2250; J0330; J1100; J0690; J2405; J3010; J2704; J1644; J2001

== ENCOUNTER → 2023-10-18 | Outpatient (CLI) | payer MEDICARE ==
--- NOTE | 2023-10-18 18:12 | CT ---
EXAMINATION TYPE: CT brain wo con DATE OF EXAM: 10/18/2023 COMPARISON: 06/16/2022 INDICATION: light headed 2 weeks DLP: 1131.9 mGycm, Automated exposure control for dose reduction was used. CONTRAST: None CT of the brain is performed utilizing 3 mm thick sections through the posterior fossa and 3 mm thick sections through the remaining calvarium. Study is performed within 24 hours of arrival to the hosp [facility]. No abnormal hyperdensity is present to suggest an acute intracranial hemorrhage. No mass lesion is evident. No acute infarcts are evident. Ventricles and sulci are appropriate for the patient age. Paranasal sinuses and mastoid air cells within the [id number] are clear. IMPRESSION: 1. No acute intracranial process. Follow-up MRI can be performed as clinically indicated.
== END | disposition home or self-care (01) ==
LOC: RADCTMAIN 16:32
PROVIDERS: ATTEND Internal Medicine
DX: R42 Dizziness and giddiness (principal)
CPT/HCPCS: 70450

== ENCOUNTER → 2023-10-19 | Outpatient (CLI) | payer MEDICARE ==
--- NOTE | 2023-10-21 12:12 | MM ---
Reason for Exam: Screening (asymptomatic). Last mammogram was performed 1 year(s) and 4 month(s) ago. Patient History: Menarche at age 10. First Full-Term at age 18. Left ovary removed at age 33. Right ovary removed at age 33. Hysterectomy at age 33. Postmenopausal. Patient has history of breast feeding. Other cancer, age 66. Estrogen for 5 years from age 33 until age 38. Hormonal Contraceptives, starting at age 20 for 1 year. Risk Values: Brooke 5 year model risk: 1.4%. NCI Lifetime model risk: 2.5%. Prior Study Comparison: 06/20/2021 Bilateral Diagnostic Mammogram, [facility]. 01/12/2022 Left MG 3D diag mammo w/cad LT, [facility]. 06/29/2022 Bilateral MG 3D screening mammo w/cad, [facility]. Tissue Density: The breasts are heterogeneously dense, which may obscure small masses. Findings: Analyzed By CAD. The pattern is symmetrical. Are stable. No significant interval change. Benign spherical and vascular calcifications are present. No suspicious groups of microcalcifications, spiculated or lobular masses, architectural distortion or other secondary signs of malignancy are mammographically apparent.The pattern is symmetrical. Pattern is stable. No significant interval change. Benign spherical and vascular calcifications are present. No suspicious groups of microcalcifications, spiculated or lobular masses, architectural distortion or other secondary signs of malignancy are mammographically apparent. Overall Assessment: Benign, BI-RAD 2 Management: Screening Mammogram of both breasts in 1 year. A negative mammogram report should not preclude additional follow up of suspicious palpable abnormalities. Patient should continue monthly self breast exam. A clinical breast exam by your physician is recommended on an annual basis and results should be correlated with mammographic findings. Note on Brooke scores and lifetime risk: 1. A Brooke score greater than 3% is considered moderate risk. If this is the case, consider specialist referral to assess eligibility for a risk reducing agent. 2. If overall lifetime risk for the development of breast cancer is 20% or higher, the patient may qualify for future screening with alternating mammogram and breast MRI. Electronically signed and approved by: Pablo Johansen D.O. Radiologis
== END | disposition home or self-care (01) ==
LOC: RADMAMWWP 15:53
PROVIDERS: ATTEND Internal Medicine
DX: Z12.31 Encounter for screening mammogram for malignant neoplasm of breast (principal); R92.333 Mammographic heterogeneous density, bilateral breasts; Z78.0 Asymptomatic menopausal state
CPT/HCPCS: 77063; 77067

== ENCOUNTER → 2023-10-30 | Outpatient (CLI) | payer MEDICARE ==
--- NOTE | 2023-10-30 20:14 | US ---
EXAMINATION TYPE: US carotid duplex BILAT DATE OF EXAM: 10/30/2023 COMPARISON: US 2022 CLINICAL INDICATION: Female, 78 years old with history of R09.89 OTH SYMPTOMS AND SIGNS INV RESPIRATO RY SYST; TECHNIQUE: Carotid duplex ultrasound examination. Indirect Doppler criteria was utilized. FINDINGS: EXAM MEASUREMENTS: RIGHT: Peak Systolic Velocity (PSV) cm/sec ----- Right CCA: 82.0 ----- Right ICA: 107.5 ----- Right ECA: 82.1 ICA/CCA ratio: 1.3 RIGHT: End Diastole cm/sec ----- Right CCA: 20.4 ----- Right ICA: 29.7 ----- Right ECA: 11.7 LEFT: Peak Systolic Velocity (PSV) cm/sec ----- Left CCA: 83.9 ----- Left ICA: 87.1 ----- Left ECA: 78.6 ICA/CCA ratio: 1.0 LEFT: End Diastole cm/sec ----- Left CCA: 19.8 ----- Left ICA: 31.6 ----- Left ECA: 5.8 VERTEBRALS (direction of flow): Right Vertebral: Antegrade Left Vertebral: Antegrade Rhythm: Normal No significant stenosis mild atherosclerotic plaque. IMPRESSION: No significant hemodynamic stenosis. Criteria for Assigning % of Stenosis / Diameter reduction (Estimation based on the indirect measurements of the internal carotid artery velocities (ICA PSV). 1. Normal (no stenosis)=ICA PSV < 125 cm/s: ratio < 2.0: ICA EDV<40 cm/s. 2. Less than 50% stenosis=ICA PSV < 125 cm/s: ratio < 2.0: ICA EDV<40 cm/s. 3. 50 to 69% stenosis=ICA PSV of 125 to 230 cm/s: ration 2.0 ? 4.0: ICA EDV 40-100 cm/s. 4. Greater than 70% stenosis to near occlusion= ICA PSV > 230 cm/s: ratio > 4.0: ICA EDV > 100 cm/s. 5. Near occlusion= ICA PSV velocities may be low or undetectable: variable ratio and ICA EDV. 6. Total occlusion=unable to detect flow.
== END | disposition home or self-care (01) ==
LOC: RADUSWWP 12:47
PROVIDERS: ATTEND Internal Medicine
DX: R09.89 Other specified symptoms and signs involving the circulatory and respiratory systems (principal)
CPT/HCPCS: 93880

== ENCOUNTER 2024-03-11 12:48 | Inpatient (IN) | payer MEDICARE ==
--- NOTE | 2024-03-11 13:45 | ED ---
Weakness HPI - General Source: patient, RN notes reviewed Mode of arrival: EMS Limitations: no limitations - History of Present Illness MD Complaint: generalized weakness <Cierra Conley - Last Filed: 03/11/24 13:42> <Lonny Peres - Last Filed: 03/11/24 19:08> - General Chief complaint: Weakness Stated complaint: weakness Time Seen by Provider: 03/11/24 13:30 - History of Present Illness Initial comments: Quick Note: This is a 79-year-old female who presents to the emergency department for weakness. States that she has felt generally unwell and weak for the last few days. She had diarrhea yesterday that has since resolved. States that she feels somewhat short of breath as well and has also noticed swelling in her bilateral thighs. She is currently on peritoneal dialysis. Denies any chest pain, nausea, or vomiting. (Cierra Conley) This is a 79-year-old female who presents to the emergency department stating that she has become weaker lately and feeling a little short of breath. Patient also states she started having diarrhea yesterday but since then it has resolved. Patient is a peritoneal dialysis patient. Patient has noticed some increased swelling to her legs and thigh area. Patient denies any chest pain patient denies any fever chills or cough. Patient Nuys any abdominal pain patient has nausea vomiting. Patient denies any back pain. (Lonny Peres) - Related Data Home Medications Medication Instructions Recorded Confirmed ALPRAZolam [Xanax] 0.25 mg PO TID PRN 07/30/13 09/15/22 PARoxetine [Paxil] 20 mg PO HS 07/30/13 09/15/22 Simvastatin [Zocor] 40 mg PO DAILY 07/30/13 09/15/22 Folic Acid 0.8 mg PO DAILY 08/11/15 09/15/22 traMADol HCL [Ultram] 50 mg PO BID PRN 08/11/15 09/15/22 Vitamin B Complex 1 tab PO DAILY 04/29/19 09/15/22 Biotin [Nogt-Wlvu-Jbkbx] 10,000 mcg PO DAILY 06/16/22 09/15/22 Cyanocobalamin (Vitamin B-12) 3,000 mcg PO DAILY 06/16/22 09/15/22 [Vitamin B-12] Diclofenac Sodium Gel [Voltaren 1% 1 applic TOPICAL QID PRN 06/16/22 09/15/22 Gel] Metoprolol Succinate [Metoprolol 12.5 mg PO BID 06/16/22 09/15/22 Succinate ER] amLODIPine [Norvasc] 2.5 mg PO QAM 06/16/22 09/15/22 Calcium Acetate [PhosLo] 667 mg PO BID 08/29/22 09/15/22 Psyllium Husk (with Sugar) 1 dose PO DAILY 08/29/22 09/15/22 [Metamucil Powder] Sodium Bicarbonate 325 mg PO BID 08/29/22 09/15/22 Previous Rx's Medication Instructions Recorded Aspirin 81 mg PO DAILY #30 tab 06/17/22 Famotidine [Pepcid] 20 mg PO BID #60 tablet 08/29/22 Allergies Allergy/AdvReac Type Severity Reaction Status Date / Time No Known Allergies Allergy Verified 03/11/24 13:09 Review of Systems ROS Other: All systems not noted in ROS Statement are negative. <Cierra Conley - Last Filed: 03/11/24 13:42> ROS Other: All systems not noted in ROS Statement are negative. <Lonny Peres - Last Filed: 03/11/24 19:08> ROS Statement: Those systems with pertinent positive or pertinent negative responses have been documented in the HPI. Past Medical History Past Medical History: Cancer, Heart Failure, CVA/TIA, Eye Disorder, GERD/Reflux, Hyperlipidemia, Hypertension, Musculoskeletal Disorder, Osteoarthritis (OA), Renal Disease, Syncope Additional Past Medical History / Comment(s): Hx diverticulitis. Hx right kidney cancer 2011, B-cell lymphoma. Hx TIA 05/2022. Chronic kidney disease stage V with dialysis being initiated soon. 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 Cataracts. Hx hypoglycemic episodes resulting in syncope. Hx superficial blood clot. History of Any Multi-Drug Resistant Organisms: None Reported Past Surgical History: Bariatric Surgery, Hernia Repair, Hysterectomy, Tonsillectomy Additional Past Surgical History / Comment(s): Hx Gastric bypass (1991), left knee injections, bilateral cataracts removed, right nephrectomy, mediport placement and removal, EGD, colonoscopy. Past Anesthesia/Blood Transfusion Reactions: No Reported Reaction Past Psychological History: Anxiety, Depression Smoking Status: Never smoker Past Alcohol Use History: None Reported Past Drug Use History: None Reported - Past Family History Mother Family Medical History: Diabetes Mellitus Father Family Medical History: Diabetes Mellitus <Cierra Conley - Last Filed: 03/11/24 13:42> General Exam Limitations: no limitations <Cierra Conley - Last Filed: 03/11/24 13:42> <Lonny Peres - Last Filed: 03/11/24 19:08> - General Exam Comments Initial Comments: Visual Physical Exam Vital signs reviewed General: Well-appearing, nontoxic, no acute distress. Head: Normocephalic, atraumatic Eyes: PERRLA, EOMI ENT: Airway patent Chest: Nonlabored breathing Skin: No visual rash, normal skin tone Neuro: Alert and oriented 3 Musculoskeletal: No gross abnormalities (Cierra Conley) GENERAL: Patient is well-developed and well-nourished. Patient is nontoxic and well- hydrated and is in mild distress. ENT: Neck is soft and supple. No significant lymphadenopathy is noted. Oropharynx is clear. Moist mucous membranes. Neck has full range of motion without eliciting any pain. EYES: The sclera were anicteric and conjunctiva were pink and moist. Extraocular movements were intact and pupils were equal round and reactive to light. Eyelids were unremarkable. PULMONARY: Unlabored respirations. Good breath sounds bilaterally. No audible rales rhonchi or wheezing was noted. CARDIOVASCULAR: There is a regular rate and rhythm without any murmurs gallops or rubs. ABDOMEN: Soft and nontender with normal bowel sounds. SKIN: Skin is clear with no lesions or rashes and otherwise unremarkable. NEUROLOGIC: Patient is alert and oriented x3. Cranial nerves II through XII are grossly intact. Motor and sensory are also intact. Normal speech, volume and content. Symmetrical smile. MUSCULOSKELETAL: Normal extremities with adequate strength and full range of motion. LYMPHATICS: No significant lymphadenopathy is noted PSYCHIATRIC: Normal psychiatric evaluation. (Lonny Peres) Course Vital Signs 03/11/24 03/11/24 13:05 15:15 Temperature 97.9 F Pulse Rate 70 125 H Respiratory 16 19 Rate Blood Pressure 103/73 110/83 O2 Sat by Pulse 99 91 L Oximetry Medical Decision Making <Cierra Conley - Last Filed: 03/11/24 13:42> - Lab Data Result diagrams: 03/11/24 13:28 03/11/24 13:28 <Lonny Peres - Last Filed: 03/11/24 19:08> - Medical Decision Making I performed the QuickNote portion of this chart. Signed Cierra Conley PA-C. (Cierra Conley) EKG is interpreted by myself. EKG shows sinus tachycardia at 106 bpm MT interval is 269 QRS is 146 QT interval 372 QTc is 434. Patient EKG shows no ST segment ovation or depression Was pt. sent in by a medical professional or institution (SAMY Carmichael, PROFESSOR OF FORESTRY, urgent care, hospital, or shelter...) When possible be specific @ -No Did you speak to anyone other than the patient for history (EMS, parent, family, police, friend...)? What history was obtained from this source @ -No Did you review nursing and triage notes (agree or disagree)? Why? @ -I reviewed and agree with nursing and triage notes Were old charts reviewed (outside hosp., previous admission, EMS record, old EKG, old radiological studies, urgent care reports/EKG's, shelter records)? Report findings @ -No old charts were reviewed Differential Diagnosis? @ -Differential Weakness: Hypoglycemia, shock, sepsis, hyponatremia, anemia, infection, MT, ETOH, adverse medicine reaction, overdose, stroke, this is not meant to be an all-inclusive list. EKG interpreted by me (3pts min.). @ -As above X-rays interpreted by me (1pt min.). @ -Chest x-ray shows no acute abnormality CT interpreted by me (1pt min.). @ -None done U/S interpreted by me (1pt. min.). @ -None done What testing was considered but not performed or refused? (CT, X-rays, U/S, labs)? Why? @ -None What meds were considered but not given or refused? Why? @ -None Did you discuss the management of the patient with other professionals (professionals i.e. SAMY Carmichael, PROFESSOR OF FORESTRY, lab, RT, psych nurse, social work program coordinator, bulk system operator, teacher, guest services officer, case finisher)? Give summary @ -I spoke with [facility]ist and they agreed to admit the patient Was smoking cessation discussed for >3mins.? @ -No Was critical care preformed (if so, how long)? @ -No Were there social determinants of health that impacted care today? How? (Homelessness, low income, unemployed, alcoholism, drug addiction, keane sportation, low edu. Level, literacy, decrease access to med. care, prison, rehab)? @ -No Was there de-escalation of care discussed even if they declined (Discuss DNR or withdrawal of care, Hospice)? DNR status @ -No What co-morbidities impacted this encounter? (DM, HTN, Smoking, COPD, CAD, Cancer, CVA, ARF, Chemo, Hep., AIDS, mental health diagnosis, sleep apnea, morbid obesity)? @ -None Was patient admitted / discharged? Hospital course, mention meds given and route, prescriptions, significant lab abnormalities, going to OR and other pertinent info. @ -Patient's lab work showed elevated potassium patient was given calcium chloride, bicarb, insulin, D50, Lokelma, patient also had an elevated BNP and troponin. Patient's liver enzymes were significantly elevated as well. I spoke with [facility] hospitalist he agreed to meet the patient admitted the patient wrote admitting orders Undiagnosed new problem with uncertain prognosis? @ -No Drug Therapy requiring intensive monitoring for toxicity (Heparin, Nitro, Insulin, Cardizem)? @ -No Were any procedures done? @ -No Diagnosis/symptom? @ -Hyperkalemia Acute, or Chronic, or Acute on Chronic? @ -Acute Uncomplicated (without systemic symptoms) or Complicated (systemic symptoms)? @ -Complicate Side effects of treatment? @ -No Exacerbation, Progression, or Severe Exacerbation? @ -No Poses a threat to life or bodily function? How? (Chest pain, USA, MT, pneumonia, PE, COPD, DKA, ARF, appy, cholecystitis, CVA, Diverticulitis, Homicidal, Suicidal, threat to staff... and all critical care pts) @ -No Diagnosis/symptom? @ -Transaminitis Acute, or Chronic, or Acute on Chronic? @ -Acute Uncomplicated (without systemic symptoms) or Complicated (systemic symptoms)? @ -Complicated Side effects of treatment? @ -None Exacerbation, Progression, or Severe Exacerbation] @ -No Poses a threat to life or bodily function? @ -Yes this can be secondary to liver failure (Lonny Peres) - Lab Data Lab Results 03/11/24 03/11/24 03/11/24 Range/Units 13:28 13:28 13:28 WBC 13.5 H (3.8-10.6) k/uL RBC 4.54 (3.80-5.40) m/uL Hgb 14.5 (11.4-16.0) gm/dL Hct 46.5 H (34.0-46.0) % MCV 102.4 H (80.0-100.0) fL MCH 32.0 (25.0-35.0) pg MCHC 31.2 (31.0-37.0) g/dL RDW 15.4 (11.5-15.5) % Plt Count 171 (150-450) k/uL MPV 8.6 Neutrophils % (Manual) 92 % Lymphocytes % (Manual) 4 % Monocytes % (Manual) 5 % Neutrophils # (Manual) 12.42 H (1.3-7.7) k/uL Lymphocytes # (Manual) 0.54 L (1.0-4.8) k/uL Monocytes # (Manual) 0.68 (0-1.0) k/uL Nucleated RBCs 2 H (0-0) /100 WBC Manual Slide Review Performed Polychromasia Present Hypochromasia Moderate Poikilocytosis (manual Present Anisocytosis (manual) Present Macrocytosis Slight PT 19.9 H (10.0-12.5) sec INR 2.0 H (<1.2) APTT 22.2 (22.0-30.0) sec Sodium 132 L (137-145) mmol/L Potassium 6.3 H* (3.5-5.1) mmol/L Chloride 95 L (98-107) mmol/L Carbon Dioxide 21 L (22-30) mmol/L Anion Gap 16 mmol/L BUN 66 H (7-17) mg/dL Creatinine 6.01 H (0.52-1.04) mg/dL Est GFR (CKD-EPI)AfAm 7 (>60 ml/min/1.73 sqM) Est GFR (CKD-EPI)NonAf 6 (>60 ml/min/1.73 sqM) Glucose 83 (74-99) mg/dL Calcium 8.9 (8.4-10.2) mg/dL Phosphorus 9.1 H* (2.5-4.5) mg/dL Magnesium 2.2 (1.6-2.3) mg/dL Total Bilirubin 1.6 H (0.2-1.3) mg/dL AST 3488 H (14-36) U/L ALT 2687 H (4-34) U/L Alkaline Phosphatase 119 (38-126) U/L Troponin I (0.000-0.034) ng/mL NT-Pro-B Natriuret Pep 041917 pg/mL Total Protein 5.6 L (6.3-8.2) g/dL Albumin 3.5 (3.5-5.0) g/dL 03/11/24 Range/Units 13:28 WBC (3.8-10.6) k/uL RBC (3.80-5.40) m/uL Hgb (11.4-16.0) gm/dL Hct (34.0-46.0) % MCV (80.0-100.0) fL MCH (25.0-35.0) pg MCHC (31.0-37.0) g/dL RDW (11.5-15.5) % Plt Count (150-450) k/uL MPV Neutrophils % (Manual) % Lymphocytes % (Manual) % Monocytes % (Manual) % Neutrophils # (Manual) (1.3-7.7) k/uL Lymphocytes # (Manual) (1.0-4.8) k/uL Monocytes # (Manual) (0-1.0) k/uL Nucleated RBCs (0-0) /100 WBC Manual Slide Review Polychromasia Hypochromasia Poikilocytosis (manual Anisocytosis (manual) Macrocytosis PT (10.0-12.5) sec INR (<1.2) APTT (22.0-30.0) sec Sodium (137-145) mmol/L Potassium (3.5-5.1) mmol/L Chloride (98-107) mmol/L Carbon Dioxide (22-30) mmol/L Anion Gap mmol/L BUN (7-17) mg/dL Creatinine (0.52-1.04) mg/dL Est GFR (CKD-EPI)AfAm (>60 ml/min/1.73 sqM) Est GFR (CKD-EPI)NonAf (>60 ml/min/1.73 sqM) Glucose (74-99) mg/dL Calcium (8.4-10.2) mg/dL Phosphorus (2.5-4.5) mg/dL Magnesium (1.6-2.3) mg/dL Total Bilirubin (0.2-1.3) mg/dL AST (14-36) U/L ALT (4-34) U/L Alkaline Phosphatase (38-126) U/L Troponin I 0.171 H* (0.000-0.034) ng/mL NT-Pro-B Natriuret Pep pg/mL Total Protein (6.3-8.2) g/dL Albumin (3.5-5.0) g/dL Disposition <Cierra Conley - Last Filed: 03/11/24 13:42> Time of Disposition: 19:08 <Lonny Peres - Last Filed: 03/11/24 19:08> Clinical Impression: Hyperkalemia, Transaminitis Disposition: ADMITTED IP TO THIS HOSP Referrals: Kandy Pires MD [Primary Care Provider] - 1-2 days
[2024-03-11 13:46] LABS: African American GFR (CKD) 7 (>60 ml/min/1.73 sqM); Albumin 3.5 g/dL (3.5-5.0); Alkaline Phosphatase 119 U/L (38-126); Anion Gap 16 mmol/L; Blood Urea Nitrogen 66 mg/dL (7-17); Calcium 8.9 mg/dL (8.4-10.2); Carbon Dioxide 21 mmol/L (22-30); Chloride 95 mmol/L (98-107); Glucose 83 mg/dL (74-99); Magnesium 2.2 mg/dL (1.6-2.3); Non-African American GFR(CKD) 6 (>60 ml/min/1.73 sqM); Sodium 132 mmol/L (137-145); Total Bilirubin 1.6 mg/dL (0.2-1.3); Total Protein 5.6 g/dL (6.3-8.2)
[2024-03-11 13:47] LABS: HCT 46.5 % (34.0-46.0); HGB 14.5 gm/dL (11.4-16.0); Hypochromasia Moderate; MCHC 31.2 g/dL (31.0-37.0); MCV 102.4 fL (80.0-100.0); Macrocytosis Slight; Mean Platelet Volume 8.6; Platelet Count 171 k/uL (150-450); RBC 4.54 m/uL (3.80-5.40); RDW 15.4 % (11.5-15.5)
[2024-03-11 13:52] LABS: Partial Thromboplastin Time 22.2 sec (22.0-30.0); Prothrombin Time 19.9 sec (10.0-12.5)
[2024-03-11 14:05] LABS: Phosphorus 9.1 mg/dL (2.5-4.5); Potassium 6.3 mmol/L (3.5-5.1)
[2024-03-11 14:13] LABS: Nucleated Red Blood Cells 2 /100 WBC (0-0)
[2024-03-11 14:15] LABS: Neutrophils % (M) 92 %
[2024-03-11 14:16] LABS: Anisocytosis (M) Present; Lymphocytes # (M) 0.54 k/uL (1.0-4.8); Monocytes # (M) 0.68 k/uL (0-1.0); Neutrophils # (M) 12.42 k/uL (1.3-7.7); Poikilocytosis (M) Present; Polychromasia Present; Total Cells Counted 200; WBC 13.5 k/uL (3.8-10.6)
[2024-03-11 14:21] LABS: ALT 2687 U/L (4-34); AST 3488 U/L (14-36); NT-Pro-B-Type Natriuretic Pept 152000 pg/mL
--- NOTE | 2024-03-11 15:39 | XR ---
EXAMINATION TYPE: XR chest 2V DATE OF EXAM: 03/11/2024 2:59 PM COMPARISON: Chest radiographs from 06/16/2022 CLINICAL INDICATION: Female, 79 years old with history of Weakness; TECHNIQUE: XR chest 2V Frontal and lateral views of the chest. FINDINGS: Lungs/Pleura: Elevated right diaphragm. There is no evidence of pleural effusion, focal consolidation , or pneumothorax. Pulmonary vascularity: Unremarkable. Heart/mediastinum: Cardiomediastinal silhouette is unremarkable. Musculoskeletal: No acute osseous pathology. Calcification overlying the left shoulder possibly calci fied joint body versus within this subcutaneous tissues. IMPRESSION: No acute cardiopulmonary disease/process. [facility], Workstation: [facility], 03/11/2024 3:37 PM
[2024-03-11] MEDS: SODIUM ZIRCONIUM CYCLOSILICATE 10 GM PACKET PO ONE (18:39)
[2024-03-11] MEDS: CALCIUM CHLORIDE 100 MG/ML 10 ML SYRINGE IVP STA (18:39)
[2024-03-11] MEDS: SODIUM BICARB 8.4% 50 ML SYR (1 MEQ/ML) IV STA (18:47)
[2024-03-11] MEDS: DEXTROSE 50% SYRINGE 50 ML IVP STA (18:47)
[2024-03-11] MEDS: INSULIN REGULAR 100 UNIT/ML VIAL (IV) IV ONE (18:49)
--- NOTE | 2024-03-11 19:26 | P.HPIM ---
History of Present Illness \Patient is a pleasant 79 years old female with past medical history of end- stage renal disease on peritoneal dialysis daily. She follows up with Dr. Lynne. Patient presents because of semiwatery diarrhea for 2 days, she has 2 bowel movements per day with no blood No overt abdominal pain but she complains from pain in her right shoulder and lower back for the last 3 days. No history of trauma She feels very lightheaded and she has to lie down She denies chest pain dyspnea or coughing She denies dizziness weakness or numbness She is complaining from cough with yellow phlegm but no dyspnea No dysuria or urgency She denies smoking alcohol or illicit drugs Vitals showing tachycardia with heart rate around 125, blood pressure 1 110/83. Patient is afebrile Her WBC 13.5, hemoglobin 14.5, platelet count 171 Potassium 6.3 and creatinine 6.0 AST 3488 and ALT 2687, bilirubin is 1.6. INR is 2.0 Troponin is mildly elevated at 0.17, proBNP is elevated [id number] Hepatitis panel was requested and is pending. Chest x-ray is as negative for acute process and reviewed by myself and agree with the findings EKG shows sinus tachycardia at [address]-T changes but there is poor R wave progression Review of Systems Review of systems CONSTITUTIONAL: No fever, no malaise, no fatigue. HEENT: No recent visual problems or hearing problems. Denied any sore throat. CARDIOVASCULAR: No orthopnea, PND, no palpitations, no syncope. PULMONARY: No shortness of breath,, no hemoptysis. GASTROINTESTINAL: no vomiting, no abdominal pain. Normoactive bowel sounds. NEUROLOGICAL: No headaches, no weakness, no numbness. HEMATOLOGICAL: Denies any bleeding or petechiae. GENITOURINARY: Denies any burning micturition, frequency, or urgency. MUSCULOSKELETAL/RHEUMATOLOGICAL: Denies any joint pain, swelling, or any muscle pain. ENDOCRINE: Denies any polyuria or polydipsia. Past Medical History Past Medical History: Cancer, Heart Failure, CVA/TIA, Eye Disorder, GERD/Reflux, Hyperlipidemia, Hypertension, Musculoskeletal Disorder, Osteoarthritis (OA), Renal Disease, Syncope Additional Past Medical History / Comment(s): Hx diverticulitis. Hx right kidney cancer 2011, B-cell lymphoma. Hx TIA 05/2022. Chronic kidney disease stage V with dialysis being initiated soon. 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 Cataracts. Hx hypoglycemic episodes resulting in syncope. Hx superficial blood clot. History of Any Multi-Drug Resistant Organisms: None Reported Past Surgical History: Bariatric Surgery, Hernia Repair, Hysterectomy, Tonsillectomy Additional Past Surgical History / Comment(s): Hx Gastric bypass (1991), left knee injections, bilateral cataracts removed, right nephrectomy, mediport placement and removal, EGD, colonoscopy. Past Anesthesia/Blood Transfusion Reactions: No Reported Reaction Past Psychological History: Anxiety, Depression Smoking Status: Never smoker Past Alcohol Use History: None Reported Past Drug Use History: None Reported - Past Family History Mother Family Medical History: Diabetes Mellitus Father Family Medical History: Diabetes Mellitus Medications and Allergies Home Medications Medication Instructions Recorded Confirmed Type ALPRAZolam [Xanax] 0.25 mg PO TID PRN 07/30/13 09/15/22 History PARoxetine [Paxil] 20 mg PO HS 07/30/13 09/15/22 History Simvastatin [Zocor] 40 mg PO DAILY 07/30/13 09/15/22 History Folic Acid 0.8 mg PO DAILY 08/11/15 09/15/22 History traMADol HCL [Ultram] 50 mg PO BID PRN 08/11/15 09/15/22 History Vitamin B Complex 1 tab PO DAILY 04/29/19 09/15/22 History Biotin [Nkfm-Eqvp-Psttw] 10,000 mcg PO DAILY 06/16/22 09/15/22 History Cyanocobalamin (Vitamin B-12) 3,000 mcg PO DAILY 06/16/22 09/15/22 History [Vitamin B-12] Diclofenac Sodium Gel [Voltaren 1% 1 applic TOPICAL QID PRN 06/16/22 09/15/22 History Gel] Metoprolol Succinate [Metoprolol 12.5 mg PO BID 06/16/22 09/15/22 History Succinate ER] amLODIPine [Norvasc] 2.5 mg PO QAM 06/16/22 09/15/22 History Aspirin 81 mg PO DAILY #30 tab 06/17/22 09/15/22 Rx Calcium Acetate [PhosLo] 667 mg PO BID 08/29/22 09/15/22 History Famotidine [Pepcid] 20 mg PO BID #60 tablet 08/29/22 09/15/22 Rx Psyllium Husk (with Sugar) 1 dose PO DAILY 08/29/22 09/15/22 History [Metamucil Powder] Sodium Bicarbonate 325 mg PO BID 08/29/22 09/15/22 History Allergies Allergy/AdvReac Type Severity Reaction Status Date / Time No Known Allergies Allergy Verified 03/11/24 13:09 Physical Exam Vitals: Vital Signs Temp Pulse Resp BP Pulse Ox 03/11/24 15:15 125 H 19 110/83 91 L 03/11/24 13:05 97.9 F 70 16 103/73 99 Intake and Output 03/11/24 03/11/24 03/11/24 06:59 14:59 22:59 Other: Weight 66.224 kg GENERAL: The patient is alert and oriented x3, not in any acute distress. Well developed, well nourished. HEENT: Pupils are round and equally reacting to light. EOMI. No scleral icterus. No conjunctival pallor. Normocephalic, atraumatic. No pharyngeal erythema. No thyromegaly. CARDIOVASCULAR: S1 and S2 present. No murmurs, rubs, or gallops. PULMONARY: Chest is clear to auscultation, no wheezing , no crackles. ABDOMEN: Soft, nontender, nondistended, normoactive bowel sounds. No palpable organomegaly. MUSCULOSKELETAL: No joint swelling or deformity. EXTREMITIES: No cyanosis, clubbing, or pedal edema. NEUROLOGICAL: Gross neurological examination did not reveal any focal deficits. SKIN: No rashes. no petechiae. Results CBC & Chem 7: 03/11/24 13:28 03/11/24 13:28 Labs: Abnormal Lab Results - Last 24 Hours (Table) 03/11/24 03/11/24 03/11/24 Range/Units 13:28 13:28 13:28 WBC 13.5 H (3.8-10.6) k/uL Hct 46.5 H (34.0-46.0) % MCV 102.4 H (80.0-100.0) fL Neutrophils # (Manual) 12.42 H (1.3-7.7) k/uL Lymphocytes # (Manual) 0.54 L (1.0-4.8) k/uL Nucleated RBCs 2 H (0-0) /100 WBC PT 19.9 H (10.0-12.5) sec INR 2.0 H (<1.2) Sodium 132 L (137-145) mmol/L Potassium 6.3 H* (3.5-5.1) mmol/L Chloride 95 L (98-107) mmol/L Carbon Dioxide 21 L (22-30) mmol/L BUN 66 H (7-17) mg/dL Creatinine 6.01 H (0.52-1.04) mg/dL Phosphorus 9.1 H* (2.5-4.5) mg/dL Total Bilirubin 1.6 H (0.2-1.3) mg/dL AST 3488 H (14-36) U/L ALT 2687 H (4-34) U/L Troponin I (0.000-0.034) ng/mL Total Protein 5.6 L (6.3-8.2) g/dL 03/11/24 Range/Units 13:28 WBC (3.8-10.6) k/uL Hct (34.0-46.0) % MCV (80.0-100.0) fL Neutrophils # (Manual) (1.3-7.7) k/uL Lymphocytes # (Manual) (1.0-4.8) k/uL Nucleated RBCs (0-0) /100 WBC PT (10.0-12.5) sec INR (<1.2) Sodium (137-145) mmol/L Potassium (3.5-5.1) mmol/L Chloride (98-107) mmol/L Carbon Dioxide (22-30) mmol/L BUN (7-17) mg/dL Creatinine (0.52-1.04) mg/dL Phosphorus (2.5-4.5) mg/dL Total Bilirubin (0.2-1.3) mg/dL AST (14-36) U/L ALT (4-34) U/L Troponin I 0.171 H* (0.000-0.034) ng/mL Total Protein (6.3-8.2) g/dL Assessment and Plan Assessment: Acute hepatitis, with coagulopathy and INR 2.0 on admission Elevated troponin, rule out cardiac disease. Differential diagnosis due to kidney disease and infection End-stage renal disease on peritoneal dialysis with hyperkalemia present on admission Chronic CHF Hypertension Hyperlipidemia Osteoarthritis History of kidney cancer status post right nephrectomy History of B-cell lymphoma History of stroke Plan: Check hepatitis panel Check Tylenol level Check liver ultrasound GI team consult Start normal saline 75 mL/h especially in view of diarrhea Check for C. difficile Nephrology team consult Monitor potassium level Check echocardiogram Consider cardiology consult Labs and medication were reviewed.. Continue same treatment. Continue with symptomatic treatment. Resume home medication. Monitor labs and vitals. DVT and GI prophylaxis. Further recommendations as per clinical course of the patient DVT prophylaxis, patient already coagulopathic GI Prophylaxis: Prognosis is guarded
[2024-03-11 20:22] LABS: Acetaminophen <10.0 ug/mL; Potassium 5.9 mmol/L (3.5-5.1)
--- NOTE | 2024-03-11 20:43 | US ---
EXAMINATION TYPE: US liver DATE OF EXAM: 03/11/2024 COMPARISON: NONE CLINICAL INDICATION: Female, 79 years old with history of hepatitis; hepatitis. Patient states diarrh ea. Hx right renal cancer w right kidney removal TECHNIQUE: Grayscale and color Doppler imaging of the right upper quadrant was performed. FINDINGS: EXAM MEASUREMENTS: Liver Length: 12.0 cm Gallbladder Wall: 0.2 cm CBD: Unable to visualize Right Kidney: Surgically absent cm J[employer] DEVELOPER NOTES:Limited due to overlying gas and patient body habitus. Intercostal views used Pancreas: Obscured by bowel gas Liver: wnl as best visualized, slightly limited by rib shadows Gallbladder: wnl. Gallbladder fold is evident. Evidence for sonographic De Paz's sign: no CBD: unable to visualize Right Kidney: Surgically absent FF visualized within the RUQ, ? ascites IMPRESSION: 1. Mild free fluid may be present. 2. Acute Changes not otherwise apparent [facility], , 03/11/2024 8:41 PM
[2024-03-12 01:34] LABS: Hepatitis A Antibody IgM Nonreactive (Nonreactive); Hepatitis B Core IgM Nonreactive (Nonreactive); Hepatitis B Surface Antigen Nonreactive (Nonreactive); Hepatitis C IgG Antibody Nonreactive (Nonreactive)
[2024-03-12] MEDS ORDERED: ACETAMINOPHEN TAB 500 MG TAB PO PRN (07:39)
--- NOTE | 2024-03-12 08:02 | P.PN ---
Subjective Patient is a pleasant 79 years old female with past medical history of end-stage renal disease on peritoneal dialysis daily. She follows up with Dr. Lynne. Patient presents because of semiwatery diarrhea for 2 days, she has 2 bowel movements per day with no blood No overt abdominal pain but she complains from pain in her right shoulder and lower back for the last 3 days. No history of trauma She feels very lightheaded and she has to lie down She denies chest pain dyspnea or coughing She denies dizziness weakness or numbness She is complaining from cough with yellow phlegm but no dyspnea No dysuria or urgency She denies smoking alcohol or illicit drugs Vitals showing tachycardia with heart rate around 125, blood pressure 1 110/83. Patient is afebrile Her WBC 13.5, hemoglobin 14.5, platelet count 171 Potassium 6.3 and creatinine 6.0 AST 3488 and ALT 2687, bilirubin is 1.6. INR is 2.0 Troponin is mildly elevated at 0.17, proBNP is elevated [id number] Hepatitis panel was requested and is pending. Chest x-ray is as negative for acute process and reviewed by myself and agree with the findings EKG shows sinus tachycardia at [address]-T changes but there is poor R wave progression 03/12 Patient awake alert looks a pleasant and relaxed sitting up in chair. She still complaining from right shoulder pain and right back pain at the same liver of the right upper quadrant. This could be referred pain from her liver disease. She rated as 7/10. She takes Ultram at home and she required at the dose of 50 mg as lower doses does not work for it. No nausea vomiting. She feels hungry. She did not have bowel movement since admission where she had diarrhea for 2 days prior to hospitalization. Patient also with 3+ bilateral pitting leg edema. Patient stated that it was worse over the last 3 days. She is on Lasix 80 mg daily at home. No signs of bleeding. Monitor INR No chest pain, no dyspnea Vitals look stable Labs from today are pending Tylenol level was checked and it was low Liver ultrasound reviewed by myself showing unremarkable findings. Hold Tylenol, Lipitor, Pepcid for possible liver adverse effect Echocardiogram still pending. Review of systems CONSTITUTIONAL: No fever, no malaise, no fatigue. HEENT: No recent visual problems or hearing problems. Denied any sore throat. CARDIOVASCULAR: No orthopnea, PND, no palpitations, no syncope. PULMONARY: No shortness of breath, no cough, no hemoptysis. . HEMATOLOGICAL: Denies any bleeding or petechiae. GENITOURINARY: Denies any burning micturition, frequency, or urgency. Active Medications Generic Name Dose Route Start Last Admin Trade Name Freq PRN Reason Stop Dose Admin Alprazolam 0.25 mg 03/12/24 09:00 Alprazolam 0.25 Mg Tab PO BID [place] Calcitriol 0.5 mcg 03/14/24 07:39 Calcitriol 0.25 Mcg Cap PO MOFR [facility] Calcium Acetate 667 mg 03/12/24 17:30 Calcium Acetate 667 Mg Tab PO BID-W/MEALS [place] Ergocalciferol 1,250 mcg 03/17/24 09:00 Ergocalciferol 1,250 Mcg (50,000 Iu) Capsule PO Q30D [facility] Furosemide 80 mg 03/12/24 09:00 Furosemide 80 Mg Tab PO DAILY [place] Mirtazapine 15 mg 03/12/24 21:00 Mirtazapine 15 Mg Tab PO HS [facility] Multivit/Ca Carb/B Cmplx/FA/Prenat 1 each 03/12/24 09:00 Folic Acid-Vit B Complex-Vit C 1 Cap PO DAILY [facility] Paroxetine HCl 20 mg 03/12/24 09:00 Paroxetine 20 Mg Tab PO DAILY [facility] Tramadol HCl 50 mg 03/12/24 07:51 Tramadol 50 Mg Tab PO QID PRN Pain Objective - Vital Signs Vital signs: Vital Signs Temp 97.6 F 03/11/24 23:22 Pulse 129 H 03/12/24 05:51 Resp 16 03/12/24 05:51 BP 113/75 03/12/24 05:51 Pulse Ox 94 L 03/12/24 00:30 FiO2 Intake & Output 03/11/24 03/12/24 03/12/24 18:59 06:59 18:59 Weight 66.224 kg - Exam GENERAL: The patient is alert and oriented x3, not in any acute distress. Well developed, well nourished. HEENT: Pupils are round and equally reacting to light. EOMI. No scleral icterus. No conjunctival pallor. Normocephalic, atraumatic. No pharyngeal erythema. No thyromegaly. CARDIOVASCULAR: S1 and S2 present. No murmurs, rubs, or gallops. PULMONARY: Chest is clear to auscultation, no wheezing , no crackles. ABDOMEN: Soft, nontender, nondistended, normoactive bowel sounds. No palpable organomegaly. MUSCULOSKELETAL: No joint swelling or deformity. -EXTREMITIES: No cyanosis, clubbing, bilateral 3+ pitting leg edema. NEUROLOGICAL: Gross neurological examination did not reveal any focal deficits. SKIN: No rashes. no petechiae. - Labs CBC & Chem 7: 03/11/24 13:28 03/11/24 19:49 Labs: Abnormal Lab Results - Last 24 Hours (Table) 03/11/24 03/11/24 03/11/24 Range/Units 13:28 13: 13:28 WBC 13.5 H (3.8-10.6) k/uL Hct 46.5 H (34.0-46.0) % MCV 102.4 H (80.0-100.0) fL Neutrophils # (Manual) 12.42 H (1.3-7.7) k/uL Lymphocytes # (Manual) 0.54 L (1.0-4.8) k/uL Nucleated RBCs 2 H (0-0) /100 WBC PT 19.9 H (10.0-12.5) sec INR 2.0 H (<1.2) Sodium 132 L (137-145) mmol/L Potassium 6.3 H* (3.5-5.1) mmol/L Chloride 95 L (98-107) mmol/L Carbon Dioxide 21 L (22-30) mmol/L BUN 66 H (7-17) mg/dL Creatinine 6.01 H (0.52-1.04) mg/dL Phosphorus 9.1 H* (2.5-4.5) mg/dL Total Bilirubin 1.6 H (0.2-1.3) mg/dL AST 3488 H (14-36) U/L ALT 2687 H (4-34) U/L Troponin I (0.000-0.034) ng/mL Total Protein 5.6 L (6.3-8.2) g/dL 03/11/24 03/11/24 03/11/24 Range/Units 13:28 19:49 19:49 WBC (3.8-10.6) k/uL Hct (34.0-46.0) % MCV (80.0-100.0) fL Neutrophils # (Manual) (1.3-7.7) k/uL Lymphocytes # (Manual) (1.0-4.8) k/uL Nucleated RBCs (0-0) /100 WBC PT (10.0-12.5) sec INR (<1.2) Sodium (137-145) mmol/L Potassium 5.9 H (3.5-5.1) mmol/L Chloride (98-107) mmol/L Carbon Dioxide (22-30) mmol/L BUN (7-17) mg/dL Creatinine (0.52-1.04) mg/dL Phosphorus (2.5-4.5) mg/dL Total Bilirubin (0.2-1.3) mg/dL AST (14-36) U/L ALT (4-34) U/L Troponin I 0.171 H* 0.164 H* (0.000-0.034) ng/mL Total Protein (6.3-8.2) g/dL Assessment and Plan Assessment: Acute hepatitis, with coagulopathy and INR 2.0 on admission Elevated troponin, rule out cardiac disease. Differential diagnosis due to kidney disease and infection End-stage renal disease on peritoneal dialysis with hyperkalemia present on admission Chronic CHF Hypertension Hyperlipidemia Osteoarthritis History of kidney cancer status post right nephrectomy History of B-cell lymphoma History of stroke Plan: Check hepatitis panel GI team consult No IV fluids Check for C. difficile. Very unlikely patient has C. difficile colitis Nephrology team consult Monitor potassium level Check echocardiogram Consider cardiology consult Labs and medication were reviewed.. Continue same treatment. Continue with symptomatic treatment. Resume home medication. Monitor labs and vitals. DVT and GI prophylaxis. Further recommendations as per clinical course of the patient DVT prophylaxis, patient already coagulopathic GI Prophylaxis: Prognosis is guarded
[2024-03-12 08:42] LABS: INR 2.8 (<1.2); Prothrombin Time 28.3 sec (10.0-12.5)
[2024-03-12] MEDS ORDERED: FAMOTIDINE 20 MG TAB PO SCH (09:00)
[2024-03-12] MEDS ORDERED: POTASSIUM CHLORIDE ER 20 MEQ TAB.ER PO SCH (09:00)
[2024-03-12] MEDS ORDERED: traMADol 50 MG TAB PO SCH (09:00)
[2024-03-12 09:01] LABS: Anisocytosis Slight; HCT 41.8 % (34.0-46.0); HGB 13.3 gm/dL (11.4-16.0); Hypochromasia Slight; MCH 32.2 pg (25.0-35.0); MCV 100.7 fL (80.0-100.0); Macrocytosis Slight; Mean Platelet Volume 9.8; Platelet Count 108 k/uL (150-450); RBC 4.15 m/uL (3.80-5.40); RDW 16.2 % (11.5-15.5)
[2024-03-12 09:05] LABS: African American GFR (CKD) 6 (>60 ml/min/1.73 sqM); Bilirubin, Conjugated 0.2 mg/dL (0.0-0.3); Calcium 8.7 mg/dL (8.4-10.2); Carbon Dioxide 25 mmol/L (22-30); Glucose 74 mg/dL (74-99); Total Bilirubin 1.8 mg/dL (0.2-1.3)
[2024-03-12 09:25] LABS: Albumin 2.9 g/dL (3.5-5.0); Alkaline Phosphatase 117 U/L (38-126); Anion Gap 12 mmol/L; Bilirubin, Delta 0.9 mg/dL (0.0-0.2); Bilirubin,Unconjugated 0.7 mg/dL (0.0-1.1); Blood Urea Nitrogen 83 mg/dL (7-17); Chloride 95 mmol/L (98-107); Non-African American GFR(CKD) 6 (>60 ml/min/1.73 sqM); Sodium 132 mmol/L (137-145); Total Protein 4.8 g/dL (6.3-8.2)
[2024-03-12 09:30] LABS: Lymphocytes # (M) 0.52 k/uL (1.0-4.8); Monocytes # (M) 0.73 k/uL (0-1.0); Neutrophils # (M) 9.26 k/uL (1.3-7.7); Neutrophils % (M) 89 %; Nucleated Red Blood Cells 4 /100 WBC (0-0); Total Cells Counted 200; WBC 10.4 k/uL (3.8-10.6)
[2024-03-12 09:32] LABS: Polychromasia Present; Potassium 6.2 mmol/L (3.5-5.1)
[2024-03-12 10:17] LABS: ALT 2824 U/L (4-34); AST 3116 U/L (14-36)
[2024-03-12] MEDS: PARoxetine 20 MG TAB PO SCH (10:26)
[2024-03-12] MEDS: FUROSEMIDE 80 MG TAB PO SCH (10:26)
[2024-03-12] MEDS: traMADol 50 MG TAB PO PRN (10:27)
[2024-03-12] MEDS: ALPRAZolam 0.25 MG TAB PO SCH (10:28)
[2024-03-12] MEDS: FOLIC ACID-VIT B COMPLEX-VIT C 1 CAP PO SCH (10:28)
--- NOTE | 2024-03-12 12:01 | CA ---
Transthoracic Echo Report Name: Bee Townsend Age: 79 Gender: F : 1945 Exam Date: 03/12/2024 11:13 Exam Location: [facility] Ht (in): 60 Wt (lb): 146 Ordering Physician: Richy Garvin MD Attending/Referring Phys: [id number], Bharathi [employer] Analyst Gunjan Coleman, [place] Procedure CPT: Indications: Chest Pain Cardiac Hx: Technical Quality: Good Contrast 1: Total Dose (mL): Contrast 2: Total Dose (mL): MEASUREMENTS (Male / Female) Normal Values 2D ECHO LV Diastolic Diameter PLAX 5.1 cm 4.2 - 5.9 / 3.9 - 5.3 cm LV Systolic Diameter PLAX 4.5 cm IVS Diastolic Thickness 0.7 cm 0.6 - 1.0 / 0.6 - 0.9 cm LVPW Diastolic Thickness 0.7 cm 0.6 - 1.0 / 0.6 - 0.9 cm LV Relative Wall Thickness 0.3 RV Internal Dim ED PLAX 3.6 cm LA Systolic Diameter LX 4.2 cm 3.0 - 4.0 / 2.7 - 3.8 cm LA Volume 70.5 cm??? 18 - 58 / 22 - 52 cm??? LA Volume Index 41.5 cm???/m??? 16 - 28 cm???/m??? M-MODE Aortic Root Diameter MM 2.6 cm AV Cusp Separation MM 1.7 cm DOPPLER AV Peak Velocity 97.9 cm/s AV Peak Gradient 3.8 mmHg AI Peak Velocity 270.0 cm/s AI Peak Gradient 29.2 mmHg AI Pressure Half Time 543.0 ms MV Area PHT 5.5 cm??? MV Deceleration Time 123.6 ms TR Peak Velocity 233.4 cm/s TR Peak Gradient 21.8 mmHg Right Ventricular Systolic Press 36.1 mmHg FINDINGS Left Ventricle Left ventricular ejection fraction is estimated at 20-25 %. Left ventricular cavity size normal. Left ventricular cavity size normal. Severely reduced global left ventricular systolic function. Right Ventricle Mild right ventricular dilatation. Mild pulmonary hypertension. Right Atrium Normal right atrial size. No right atrial thrombus or mass seen. Left Atrium Mildly increased left atrial diameter. Moderately increased left atrial volume. Mitral Valve Structurally normal mitral valve. Moderate mitral regurgitation. Aortic Valve Trileaflet aortic valve. Mild aortic regurgitation. Tricuspid Valve Structurally normal tricuspid valve. Mild tricuspid regurgitation. Pulmonic Valve Structurally normal pulmonic valve. Trace pulmonic regurgitation. Pericardium No pericardial effusion. Aorta Normal size aortic root and proximal ascending aorta. CONCLUSIONS Enlarged left ventricle with the global decrease in contractility estimated ejection fraction of about 20%. Both atria are prominent. Moderate mitral regurgitation mild tricuspid regurgitation no pericardial effusion Previewed by: Dr. Sariah Alarcon MD (Electronically Signed) Final Date: 12 March 2024 12:00
--- NOTE | 2024-03-12 13:23 | P.NPCON ---
History of Present Illness - Reason for Consult end stage renal disease - History of Present Illness patient is a 79-year-old female with end-stage renal disease on peritoneal dialysis was admitted to the hospital with complaints of abdominal pain and shoulder pain.she was noted to have significantly elevated liver enzymes. Hepatitis serologies are negative. No complaints of diarrhea. Patient has had poor oral intake for some time. Blood pressure has been on the lower side with systolic at 10 3 mmHg but no further lower blood pressures reported. Patient also complains of increased lower extremity swelling. No complaints of shortness of breath or chest pain. Ejection fraction at 20-25% on echocardiogram done today. Moderate mitral regurgitation noted. Liver ultrasound was unremarkable. Past Medical History Past Medical History: Cancer, Heart Failure, CVA/TIA, Eye Disorder, GERD/Reflux, Hyperlipidemia, Hypertension, Musculoskeletal Disorder, Osteoarthritis (OA), Renal Disease, Syncope Additional Past Medical History / Comment(s): Hx diverticulitis. Hx right kidney cancer 2011, B-cell lymphoma. Hx TIA 05/2022. Chronic kidney disease stage V with dialysis being initiated soon. 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 Cataracts. Hx hypoglycemic episodes resulting in syncope. Hx superficial blood clot. History of Any Multi-Drug Resistant Organisms: None Reported Past Surgical History: Bariatric Surgery, Hernia Repair, Hysterectomy, Tonsillectomy Additional Past Surgical History / Comment(s): Hx Gastric bypass (1991), left knee injections, bilateral cataracts removed, right nephrectomy, mediport placement and removal, EGD, colonoscopy. Past Anesthesia/Blood Transfusion Reactions: No Reported Reaction Past Psychological History: Anxiety, Depression Smoking Status: Never smoker Past Alcohol Use History: None Reported Past Drug Use History: None Reported - Past Family History Mother Family Medical History: Diabetes Mellitus Father Family Medical History: Diabetes Mellitus Medications and Allergies Home Medications Medication Instructions Recorded Confirmed Type ALPRAZolam [Xanax] 0.25 mg PO BID 07/30/13 03/12/24 History PARoxetine [Paxil] 20 mg PO DAILY 07/30/13 03/12/24 History Simvastatin [Zocor] 40 mg PO HS 07/30/13 03/12/24 History traMADol HCL [Ultram] 50 mg PO BID 08/11/15 03/12/24 History Famotidine [Pepcid] 20 mg PO BID #60 tablet 08/29/22 03/12/24 Rx Acetaminophen Tab [Tylenol Tab] 500 mg PO Q6H PRN 03/12/24 03/12/24 History Calcium Acetate 667mg Capsule 667 mg PO BID-W/MEALS 03/12/24 03/12/24 History Ergocalciferol [Vitamin D2 (1250 1,250 mcg PO Q30D 03/12/24 03/12/24 History Mcg = 63857 Iu)] Folic Acid/Vit B Complex and C 0.8 mg PO DAILY 03/12/24 03/12/24 History [Nephro-Shaunna Tablet] Furosemide [Lasix] 80 mg PO DAILY 03/12/24 03/12/24 History Mirtazapine [Remeron] 15 mg PO HS 03/12/24 03/12/24 History Potassium Chloride ER [K-Dur 20] 30 meq PO DAILY 03/12/24 03/12/24 History calcitrioL 0.5 mcg PO MOFR 03/12/24 03/12/24 History Allergies Allergy/AdvReac Type Severity Reaction Status Date / Time No Known Allergies Allergy Verified 03/12/24 07:26 Physical Exam Vitals: Vital Signs Temp Pulse Pulse Resp BP Pulse Ox 03/12/24 11:24 130 H 03/12/24 05:51 129 H 16 113/75 03/12/24 04:00 129 H 18 101/63 03/12/24 00:30 105 H 18 105/57 94 L 03/11/24 23:22 97.6 F 95 17 115/84 90 L 03/11/24 18:45 17 03/11/24 15:15 125 H 19 110/83 91 L patient is awake, comfortable, in no acute distress. Examination of the heart S1 and S2 Examination of the lungs bilateral breath sounds are heard Abdomen is soft nontender Examination of lower extremity shows edema 2-3+ bilaterally [employer] exam grossly intact Results - Lab Results Most recent lab results Calcium 8.7 mg/dL (8.4-10.2) 03/12/24 07:50 Phosphorus 9.1 mg/dL (2.5-4.5) H* 03/11/24 13:28 Magnesium 2.2 mg/dL (1.6-2.3) 03/11/24 13:28 03/12/24 07:50 03/12/24 07:50 Assessment and Plan Assessment: 1. End-stage renal disease on peritoneal dialysis 2. Significant lower extremity edema and volume overload 3. Acute hepatitis with hepatitis serologies negative. No new medications started recently. Statins on hold. GI has been consulted. 4. CK D mineral bone disorder 5. Cardiomyopathy with EF of 20-25% 6. Hyperkalemia associated with end-stage renal disease. Expect improvement with dialysis. Check CK level Plan: start peritoneal dialysis Check CK increase UF with peritoneal dialysis Continue with oral Lasix Continue with calcitriol and PhosLo. Thank you for the consultation. We will continue to follow the patient with you during [facility] hospitalization.
--- NOTE | 2024-03-12 13:25 | P.CONS ---
History of Present Illness - Reason for Consult Consult date: 03/12/24 Acute hepatitis, high INR Requesting physician: Richy E Bharathi - Chief Complaint Generalized weakness - History of Present Illness This is a pleasant 79-year-old female who presented to the emergency department for generalized weakness and feeling unwell. Apparently was having some shortness of breath and lower extremity swelling in her legs. She is on peritoneal dialysis at home. Past medical history includes heart failure, chronic kidney disease on peritoneal dialysis, CVA/TIA, GERD, hyperlipidemia, hypertension, history of bariatric surgery with gastric bypass, and B-cell lymphoma. Patient was noted to have elevated liver function tests on admission with elevated INR. Gastroenterology was consulted for the above. She denies any history of liver disease or alcoholism in the past. She denies any new medications states she does take Tylenol extra strength 1 tablet daily. She denies any abdominal pain, nausea or vomiting. States her appetite has been well. She was noted to have elevated troponins on admission. Hepatitis panel nonreactive, acetaminophen level less than 10. Her blood pressures have been soft, she has been tachycardic. Admitting labs WBC 13 hemoglobin 14 hematocrit 46 platelet count 171,000 INR 2.0 sodium 132 potassium 6.3 BUN 66 creatinine 6.0 total bilirubin 1.6 AST 3488 ALT 2687 alkaline phosphatase 119 Repeat labs today INR remains elevated at 2.8 total bilirubin 1.8 conjugated bilirubin 0.2 unconjugated 0.7 AST 3116 ALT 2824 alkaline phosphatase 117 troponins 0.169 Review of Systems REVIEW OF SYSTEMS: CARDIOPULMONARY: No chest pain . Positive shortness of breath positive lower extremity swelling Gastrointestinal: No abdominal pain. No nausea or vomiting. No hematemesis, coffee-ground emesis. No rectal bleeding, or melena. GENITOURINARY: No dysuria or hematuria. MUSCULOSKELETAL: Reports normal range of motion., Joint pain. SKIN: No rashes. No jaundice. ENDOCRINE: No chills, fevers. No excessive weight gain or loss. No polydipsia or polyuria. PSYCHIATRIC: Unremarkable. NEUROLOGY: No change in mental status. Denies dizziness, headache. ENT: Vision unremarkable. CONSTITUTIONAL: No recent weight loss. No fever, chills, night sweats. Generalized weakness. Past Medical History Past Medical History: Cancer, Heart Failure, CVA/TIA, Eye Disorder, GERD/Reflux, Hyperlipidemia, Hypertension, Musculoskeletal Disorder, Osteoarthritis (OA), Renal Disease, Syncope Additional Past Medical History / Comment(s): Hx diverticulitis. Hx right kidney cancer 2011, B-cell lymphoma. Hx TIA 05/2022. Chronic kidney disease stage V with dialysis being initiated soon. 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 Cataracts. Hx hypoglycemic episodes resulting in syncope. Hx superficial blood clot. History of Any Multi-Drug Resistant Organisms: None Reported Past Surgical History: Bariatric Surgery, Hernia Repair, Hysterectomy, Tonsillectomy Additional Past Surgical History / Comment(s): Hx Gastric bypass (1991), left knee injections, bilateral cataracts removed, right nephrectomy, mediport placement and removal, EGD, colonoscopy. Past Anesthesia/Blood Transfusion Reactions: No Reported Reaction Past Psychological History: Anxiety, Depression Smoking Status: Never smoker Past Alcohol Use History: None Reported Past Drug Use History: None Reported - Past Family History Mother Family Medical History: Diabetes Mellitus Father Family Medical History: Diabetes Mellitus Medications and Allergies Home Medications Medication Instructions Recorded Confirmed Type ALPRAZolam [Xanax] 0.25 mg PO BID 07/30/13 03/12/24 History PARoxetine [Paxil] 20 mg PO DAILY 07/30/13 03/12/24 History Simvastatin [Zocor] 40 mg PO HS 07/30/13 03/12/24 History traMADol HCL [Ultram] 50 mg PO BID 08/11/15 03/12/24 History Famotidine [Pepcid] 20 mg PO BID #60 tablet 08/29/22 03/12/24 Rx Acetaminophen Tab [Tylenol Tab] 500 mg PO Q6H PRN 03/12/24 03/12/24 History Calcium Acetate 667mg Capsule 667 mg PO BID-W/MEALS 03/12/24 03/12/24 History Ergocalciferol [Vitamin D2 (1250 1,250 mcg PO Q30D 03/12/24 03/12/24 History Mcg = 94862 Iu)] Folic Acid/Vit B Complex and C 0.8 mg PO DAILY 03/12/24 03/12/24 History [Nephro-Shaunna Tablet] Furosemide [Lasix] 80 mg PO DAILY 03/12/24 03/12/24 History Mirtazapine [Remeron] 15 mg PO HS 03/12/24 03/12/24 History Potassium Chloride ER [K-Dur 20] 30 meq PO DAILY 03/12/24 03/12/24 History calcitrioL 0.5 mcg PO MOFR 03/12/24 03/12/24 History Allergies Allergy/AdvReac Type Severity Reaction Status Date / Time No Known Allergies Allergy Verified 03/12/24 07:26 Physical Exam Vitals: Vital Signs Temp Pulse Resp BP Pulse Ox 03/12/24 05:51 129 H 16 113/75 03/12/24 04:00 129 H 18 101/63 03/12/24 00:30 105 H 18 105/57 94 L 03/11/24 23:22 97.6 F 95 17 115/84 90 L 03/11/24 18:45 17 03/11/24 15:15 125 H 19 110/83 91 L 03/11/24 13:05 97.9 F 70 16 103/73 99 General appearance: The patient is alert, oriented, appears in no acute distress. HET: Head is normocephalic and atraumatic. Conjunctiva pink. Sclera anicteric. Neck: Supple without lymphadenopathy. Trachea midline. Heart: Regular. Lungs: Equal expansion, normal respiratory effort. Abdomen: Soft, nontender, nondistended. Skin: No rashes. No jaundice. Extremities: Normal skin color and turgor. Bilateral lower extremity edema. Neurological: No focal deficits. Alert and oriented x3. Results CBC & Chem 7: 03/12/24 07:50 03/12/24 07:50 Labs: Abnormal Lab Results - Last 24 Hours (Table) 03/11/24 03/11/24 03/11/24 Range/Units 13:28 13:28 13:28 WBC 13.5 H (3.8-10.6) k/uL Hct 46.5 H (34.0-46.0) % MCV 102.4 H (80.0-100.0) fL Neutrophils # (Manual) 12.42 H (1.3-7.7) k/uL Lymphocytes # (Manual) 0.54 L (1.0-4.8) k/uL Nucleated RBCs 2 H (0-0) /100 WBC PT 19.9 H (10.0-12.5) sec INR 2.0 H (<1.2) Sodium 132 L (137-145) mmol/L Potassium 6.3 H* (3.5-5.1) mmol/L Chloride 95 L (98-107) mmol/L Carbon Dioxide 21 L (22-30) mmol/L BUN 66 H (7-17) mg/dL Creatinine 6.01 H (0.52-1.04) mg/dL Phosphorus 9.1 H* (2.5-4.5) mg/dL Total Bilirubin 1.6 H (0.2-1.3) mg/dL AST 3488 H (14-36) U/L ALT 2687 H (4-34) U/L Troponin I (0.000-0.034) ng/mL Total Protein 5.6 L (6.3-8.2) g/dL 03/11/24 03/11/24 03/11/24 Range/Units 13:28 19:49 19:49 WBC (3.8-10.6) k/uL Hct (34.0-46.0) % MCV (80.0-100.0) fL Neutrophils # (Manual) (1.3-7.7) k/uL Lymphocytes # (Manual) (1.0-4.8) k/uL Nucleated RBCs (0-0) /100 WBC PT (10.0-12.5) sec INR (<1.2) Sodium (137-145) mmol/L Potassium 5.9 H (3.5-5.1) mmol/L Chloride (98-107) mmol/L Carbon Dioxide (22-30) mmol/L BUN (7-17) mg/dL Creatinine (0.52-1.04) mg/dL Phosphorus (2.5-4.5) mg/dL Total Bilirubin (0.2-1.3) mg/dL AST (14-36) U/L ALT (4-34) U/L Troponin I 0.171 H* 0.164 H* (0.000-0.034) ng/mL Total Protein (6.3-8.2) g/dL 03/12/24 Range/Units 08:01 WBC (3.8-10.6) k/uL Hct (34.0-46.0) % MCV (80.0-100.0) fL Neutrophils # (Manual) (1.3-7.7) k/uL Lymphocytes # (Manual) (1.0-4.8) k/uL Nucleated RBCs (0-0) /100 WBC PT 28.3 H (10.0-12.5) sec INR 2.8 H (<1.2) Sodium (137-145) mmol/L Potassium (3.5-5.1) mmol/L Chloride (98-107) mmol/L Carbon Dioxide (22-30) mmol/L BUN (7-17) mg/dL Creatinine (0.52-1.04) mg/dL Phosphorus (2.5-4.5) mg/dL Total Bilirubin (0.2-1.3) mg/dL AST (14-36) U/L ALT (4-34) U/L Troponin I (0.000-0.034) ng/mL Total Protein (6.3-8.2) g/dL Comments: Liver ultrasound mild free fluid may be present, acute changes not otherwise apparent. Unable to visualize CBD. Liver and gallbladder within normal limits. Assessment and Plan (1) Acute hepatitis Narrative/Plan: 79-year-old female presenting with generalized weakness and lower extremity swelling with history of end-stage renal disease, on peritoneal dialysis who is hypotensive on admission presented with significantly elevated liver enzymes. No underlying history of liver disease, no reported new medications, does take Tylenol extra strength daily once a day with an acetaminophen level less than 10. Unclear etiology of transaminitis could be secondary to hypoperfusion, need to consider possible medication induced however patient has not had any new medications. Consider infectious/viral. Will order CMV/EBV. Further recommendations forthcoming based on clinical course Current Visit: Yes Status: Acute Code(s): B17.9 - ACUTE VIRAL HEPATITIS, UNSPECIFIED SNOMED Code(s): 86456602 (2) Renal failure treated with peritoneal dialysis Current Visit: Yes Status: Acute Code(s): N19 - UNSPECIFIED KIDNEY FAILURE; Z99.2 - DEPENDENCE ON RENAL DIALYSIS SNOMED Code(s): 88245238 (3) Coagulopathy Narrative/Plan: Elevated INR Current Visit: Yes Status: Acute Code(s): D68.9 - COAGULATION DEFECT, UNSPECIFIED SNOMED Code(s): 65657940 (4) Hyperkalemia Current Visit: Yes Status: Acute Code(s): E87.5 - HYPERKALEMIA SNOMED Code(s): 79378515 (5) Transaminitis Current Visit: Yes Status: Acute Code(s): R74.01 - ELEVATION OF LEVELS OF LIVER TRANSAMINASE LEVELS SNOMED Code(s): 599800779 (6) B-cell lymphoma Current Visit: No Status: Acute Code(s): C85.10 - UNSPECIFIED B-CELL LYMPHOMA, UNSPECIFIED SITE SNOMED Code(s): 702515367 Plan: 1. Continue symptomatic and supportive care 2. Daily CBC, INR, CMP 3. Will order CMV/EBV 4. Avoid hepatotoxic medications 5. Avoid hypotension 6. Consider CT abdomen pelvis with contrast if cleared by nephrology 7. Rest of medical management per primary medical team 8. Further recommendations forthcoming based on clinical course Thank you for this consultation, we will continue to follow. Dr. Lizzeth Conley I agree with the dictator's note, documented as a scribe by Rosalie Eisenberg.
[2024-03-12] MEDS: DIALYSIS (PERIT 2.5%) 2,000 ML 50 G/2,000 ML BAG INTRAPERIT SCH (15:23)
[2024-03-12] MEDS: PHYTONADIONE ORAL 5 MG/5 ML ORAL.SYRG PO STA (18:35)
[2024-03-12] MEDS: CALCIUM ACETATE 667 MG TAB PO SCH (18:37)
--- NOTE | 2024-03-12 20:17 | XR ---
EXAMINATION TYPE: XR chest 2V DATE OF EXAM: 03/12/2024 7:58 PM COMPARISON: 03/11/2024 CLINICAL INDICATION: Female, 79 years old with history of Heart rate, TECHNIQUE: XR chest 2V view(s) obtained. FINDINGS: The heart size is normal. The pulmonary vasculature is normal. The lungs are clear. There is a large calcification overlying the proximal left humerus present prev iously. IMPRESSION: 1. No acute pulmonary process. [facility], , 03/12/2024 8:14 PM
[2024-03-12] MEDS ORDERED: ATORVASTATIN 20 MG TAB PO SCH (21:00)
[2024-03-12] MEDS ORDERED: HEPARIN SODIUM 1,000 UN/ML (10ML VL) IV PRN (22:35)
[2024-03-12] MEDS: DEXTROSE 5% IN WATER 100 ML with AMIODARONE 150 MG IV ONE (22:37)
[2024-03-12] MEDS: MIRTAZAPINE 15 MG TAB PO SCH (22:37)
[2024-03-12] MEDS: AMIODARONE 360 MG in DEXTROSE 5% IN WATER 200 ML IV ONE (22:47)
[2024-03-12] MEDS: HEPARIN SOD,PORK IN 0.45% NACL 25,000 UNIT in 0.45% NACL 1 250ML.BAG IV SCH (23:13)
[2024-03-12] MEDS: HEPARIN SODIUM 1,000 UN/ML (10ML VL) IV ONE (23:16)
[2024-03-13] MEDS: HYDROmorphone 0.5 MG/0.5 ML SYRINGE IVP STA (01:53)
[2024-03-13] MEDS: DIALYSIS (PERIT 2.5%) 2,000 ML 50 G/2,000 ML BAG INTRAPERIT SCH (04:56)
[2024-03-13] MEDS: SODIUM CHLORIDE 0.9% 500 ML 500 ML IV ONE ×2 (05:01→07:00)
[2024-03-13] MEDS: NOREPINEPHRINE 4 MG in SODIUM CHLORIDE 0.9% 250 ML IV SCH (05:30)
[2024-03-13 05:33] LABS: Glucose,Whole Blood 118 mg/dL (70-110)
[2024-03-13] MEDS ORDERED: NALOXONE 0.4 MG/ML 1 ML VIAL IV PRN (05:46)
[2024-03-13] MEDS: SODIUM CHLORIDE 0.9% 1,000 ML IV ONE (06:00)
--- NOTE | 2024-03-13 06:13 | P.CNPUL ---
History of Present Illness Consult date: 03/13/24 Requesting physician: Polly Harris Reason for consult: other (Atrial fibrillation with rapid ventricular response, hypotension, ICU evaluation) Chief complaint: Generalized weakness History of present illness: Patient is a 79-year-old female with past medical history significant for hyperlipidemia, hypertension, heart failure with reduced ejection fraction, TIA/CVA, renal cancer, end-stage renal disease with peritoneal dialysis, B-cell lymphoma, among other things. Patient presented the ED back on 03/11/2024 with chief complaint of generalized weakness,. She has noticed increased swelling of her lower extremities. She is known to have chronic kidney disease and uses peritoneal dialysis at home. While in the ED, patient was noted to have a severely elevated potassium level of 6.3. She is given a potassium cocktail including gram of calcium chloride, 1 amp bicarb, 10 regular units of insulin, 1 amp D50 W, and Lokelma. Unfortunately, her potassium is back up to 6.2. Since then, she is receiving 2 rounds of peritoneal dialysis. Her net fluid losses total 500 cc. CBC from yesterday: WBC count 10.4, hemoglobin 13.3, hematocrit 41.8, platelets 108. Coagulation profile includes a PT of 28.3, INR of 2.8, and a PTT of 22.2. Most recent CMP from yesterday sodium 132, potassium 6.2, chloride 95, serum bicarb 25, BUN 83, creatinine 6.58, glucose 74. LFTs were elevated with an AST of 3116, ALT of 2824, ALP of 117. Hepatitis panel was unremarkable. Her serial troponins were elevated including 0.17, 0.164, 0.169, 0.164. Echocardiogram done this admission showing enlarged left ventricle with global decrease in contractility with an estimated left ventricular ejection fraction of 20%. Moderate mitral regurgitation and mild tricuspid regurgitation. Yesterday evening, the patient was noted to go into A-fib RVR with a rate up to 150 bpm. Cardiology was consulted, and patient was placed on a combination of amiodarone per protocol and IV heparin. I was called about this patient earlier this morning, apparently, patient was found to be profoundly hypotensive. I went to evaluate this patient on the cardiac stepdown unit. She is currently lethargic. Blood pressure is 60s over Doppler. I gave the patient a total of 1 L normal saline bolus so far. Heart rhythm remains A- fib with rapid ventricular response, rates in the 100-120s. She is currently on amiodarone infusion which is infusing at 0.5 mg/min. Heparin is infusing per protocol. Also has an additional fluid bolus infusing. I am recommending that this patient be transferred to the intensive care unit. Review of Systems ROS unobtainable: due to mental status Past Medical History Past Medical History: Cancer, Heart Failure, CVA/TIA, Eye Disorder, GERD/Reflux, Hyperlipidemia, Hypertension, Musculoskeletal Disorder, Osteoarthritis (OA), Renal Disease, Syncope Additional Past Medical History / Comment(s): Hx diverticulitis. Hx right kidney cancer 2011, B-cell lymphoma. Hx TIA 05/2022. 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 Cataracts. Hx hypoglycemic episodes resulting in syncope. Hx superficial blood clot. History of Any Multi-Drug Resistant Organisms: None Reported Past Surgical History: Bariatric Surgery, Hernia Repair, Hysterectomy, Tonsillectomy Additional Past Surgical History / Comment(s): Hx Gastric bypass (1991), left knee injections, bilateral cataracts removed, right nephrectomy, mediport placement and removal, EGD, colonoscopy. Past Anesthesia/Blood Transfusion Reactions: No Reported Reaction Past Psychological History: Anxiety, Depression Smoking Status: Never smoker Past Alcohol Use History: None Reported Past Drug Use History: None Reported - Past Family History Mother Family Medical History: Diabetes Mellitus Father Family Medical History: Diabetes Mellitus Medications and Allergies Home Medications Medication Instructions Recorded Confirmed Type ALPRAZolam [Xanax] 0.25 mg PO BID 07/30/13 03/12/24 History PARoxetine [Paxil] 20 mg PO DAILY 07/30/13 03/12/24 History Simvastatin [Zocor] 40 mg PO HS 07/30/13 03/12/24 History traMADol HCL [Ultram] 50 mg PO BID 08/11/15 03/12/24 History Famotidine [Pepcid] 20 mg PO BID #60 tablet 08/29/22 03/12/24 Rx Acetaminophen Tab [Tylenol Tab] 500 mg PO Q6H PRN 03/12/24 03/12/24 History Calcium Acetate 667mg Capsule 667 mg PO BID-W/MEALS 03/12/24 03/12/24 History Ergocalciferol [Vitamin D2 (1250 1,250 mcg PO Q30D 03/12/24 03/12/24 History Mcg = 73989 Iu)] Folic Acid/Vit B Complex and C 0.8 mg PO DAILY 03/12/24 03/12/24 History [Nephro-Shaunna Tablet] Furosemide [Lasix] 80 mg PO DAILY 03/12/24 03/12/24 History Mirtazapine [Remeron] 15 mg PO HS 03/12/24 03/12/24 History Potassium Chloride ER [K-Dur 20] 30 meq PO DAILY 03/12/24 03/12/24 History calcitrioL 0.5 mcg PO MOFR 03/12/24 03/12/24 History Allergies Allergy/AdvReac Type Severity Reaction Status Date / Time No Known Allergies Allergy Verified 03/12/24 07:26 Physical Exam Vitals: Vital Signs Temp Pulse Pulse Resp BP BP Pulse Ox 03/13/24 04:15 122 H 16 73/60 94 L 03/13/24 02:00 120 H 96 03/12/24 23:04 98.0 F 147 H 15 104/67 95 03/12/24 23:03 133 H 15 99/54 95 03/12/24 22:13 98.0 F 147 H 16 88/68 77 L 03/12/24 21:16 98.0 F 151 H 16 88/68 77 L 03/12/24 21:04 146 H 20 105/76 98 03/12/24 19:50 163 H 20 105/84 03/12/24 19:00 170 H 20 97/76 93 L 03/12/24 18:00 152 H 17 105/89 93 L 03/12/24 17:00 128 H 19 92/61 89 L 03/12/24 16:00 129 H 19 105/68 90 L 03/12/24 15:50 97.6 F 129 H 20 95 03/12/24 15:00 97.8 F 128 H 20 99/65 89 L 03/12/24 11:24 130 H 03/12/24 05:51 129 H 16 113/75 Intake and Output 03/12/24 03/12/24 03/13/24 14:59 22:59 06:59 Intake Total 720 Balance 720 Intake: Oral 720 Other: Voiding Method Toilet Weight 66.224 kg GENERAL EXAM: Lethargic 79-year-old female, who awakens to questioning briefly, then falls back to sleep. HEAD: Normocephalic and atraumatic EYES: Normal reaction of pupils, equal size. NOSE: Clear with pink turbinates. THROAT: No erythema or exudates. NECK: No masses, no JVD. CHEST: No chest wall deformity. LUNGS: Equal air entry with no crackles, wheeze, rhonchi or dullness. On room air oxygen. No conversational dyspnea or accessory muscle use.. CVS: S1 and S2 normal with no audible murmur, irregular rhythm. No extra heart sounds ABDOMEN: Active bowel sounds, abdominal ascites, no guarding or rigidity, no hepatosplenomegaly. peritoneal get dialysis catheter noted, insertion site is clean, dry, without erythema or drainage. SPINE: No scoliosis or deformity SKIN: No rashes CENTRAL NERVOUS SYSTEM: Lethargic, no focal deficits, tone is normal in all 4 extremities. EXTREMITIES: There lower extremity edema 3+ bilaterally, no clubbing, or cyanosis. Peripheral pulses weak with Doppler. Patient's extremities are pink clammy. Results - Laboratory Findings CBC and BMP: 03/12/24 07:50 03/12/24 07:50 PT/INR, D-dimer PT 28.3 sec (10.0-12.5) H 03/12/24 08:01 INR 2.8 (<1.2) H 03/12/24 08:01 Abnormal lab findings: Abnormal Labs 03/11/24 03/11/24 03/11/24 13:28 13:28 13:28 WBC 13.5 H Hct 46.5 H MCV 102.4 H RDW Plt Count Neutrophils # (Manual) 12.42 H Lymphocytes # (Manual) 0.54 L Nucleated RBCs 2 H PT 19.9 H INR 2.0 H Sodium 132 L Potassium 6.3 H* Chloride 95 L Carbon Dioxide 21 L BUN 66 H Creatinine 6.01 H Phosphorus 9.1 H* Total Bilirubin 1.6 H Delta Bilirubin AST 3488 H ALT 2687 H Creatine Kinase Troponin I Total Protein 5.6 L Albumin 03/11/24 03/11/24 03/11/24 13:28 19:49 19:49 WBC Hct MCV RDW Plt Count Neutrophils # (Manual) Lymphocytes # (Manual) Nucleated RBCs PT INR Sodium Potassium 5.9 H Chloride Carbon Dioxide BUN Creatinine Phosphorus Total Bilirubin Delta Bilirubin AST ALT Creatine Kinase Troponin I 0.171 H* 0.164 H* Total Protein Albumin 03/12/24 03/12/24 03/12/24 07:50 07:50 07:50 WBC Hct MCV 100.7 H RDW 16.2 H Plt Count 108 L Neutrophils # (Manual) 9.26 H Lymphocytes # (Manual) 0.52 L Nucleated RBCs 4 H PT INR Sodium 132 L Potassium 6.2 H* Chloride 95 L Carbon Dioxide BUN 83 H Creatinine 6.58 H Phosphorus Total Bilirubin 1.8 H Delta Bilirubin 0.9 H AST 3116 H ALT 2824 H Creatine Kinase 207 H Troponin I Total Protein 4.8 L Albumin 2.9 L 03/12/24 03/12/24 03/12/24 07:52 08:01 19:50 WBC Hct MCV RDW Plt Count Neutrophils # (Manual) Lymphocytes # (Manual) Nucleated RBCs PT 28.3 H INR 2.8 H Sodium Potassium Chloride Carbon Dioxide BUN Creatinine Phosphorus Total Bilirubin Delta Bilirubin AST ALT Creatine Kinase Troponin I 0.169 H* 0.164 H* Total Protein Albumin - Diagnostic Findings Chest x-ray: image reviewed Assessment and Plan Assessment: Atrial fibrillation with rapid ventricular response, new onset, currently rate is ranging 100-120s, patient was started on a combination of amiodarone and IV heparin by cardiology Hypotension and shock, possibly secondary to above. Elevated troponins, possibly secondary to above Nonischemic cardiomyopathy, with an ejection fraction of 20%, moderate MR and mild tricuspid regurgitation. Elevated transaminitis, liver ultrasound unremarkable, viral hepatitis panel was negative, Tylenol level less than 10 Coagulopathy, secondary to above End-stage renal disease, maintained on peritoneal dialysis Severe hyperkalemia, patient was given a K cocktail while in the emergency department, potassium is back up to 6.2 and has not been rechecked in almost 24 hours. She has received 2 more rounds of peritoneal dialysis. Bilateral lower extremity edema History of hyperlipidemia History of hypertension History of CVA/TIA History of renal cancer and previous nephrectomy History of B-cell lymphoma History of gastric bypass Plan: I was asked to come see this patient in new consultation. Patient was found to be profoundly hypotensive during peritoneal dialysis. I recommend patient be transferred to the intensive care unit. Remains profoundly hypotensive after a total of 1 L fluid bolus. I am recommending an additional 1 L bolus, and to start this patient on vasopressors in the form of norepinephrine to maintain a MAP of 65 mmHg or greater. Rule out infectious proceess and send cultures. We will repeat electrolytes, including potassium. Cardiology has elected to place this patient on amiodarone protocol for rate control. Monitor LFTs. Heparin is also infusing per protocol. Recheck APTT and CBC. Monitor for bleeding. GI prophylaxis: Protonix. Nephrology is managing peritoneal dialysis. Prognosis is guarded. Will continue to follow this patient while in the intensive care unit. Time with Patient: Greater than 30
[2024-03-13 06:40] LABS: HCT 45.1 % (34.0-46.0); HGB 14.2 gm/dL (11.4-16.0); Hypochromasia Moderate; MCH 32.1 pg (25.0-35.0); MCHC 31.4 g/dL (31.0-37.0); MCV 102.1 fL (80.0-100.0); Macrocytosis Moderate; Mean Platelet Volume 10.6; RBC 4.42 m/uL (3.80-5.40)
[2024-03-13 06:50] LABS: African American GFR (CKD) 6 (>60 ml/min/1.73 sqM); Albumin 2.9 g/dL (3.5-5.0); Alkaline Phosphatase 95 U/L (38-126); Anion Gap 15 mmol/L; Blood Urea Nitrogen 81 mg/dL (7-17); Calcium 7.3 mg/dL (8.4-10.2); Carbon Dioxide 13 mmol/L (22-30); Chloride 101 mmol/L (98-107); Glucose 141 mg/dL (74-99); Magnesium 2.4 mg/dL (1.6-2.3); Non-African American GFR(CKD) 6 (>60 ml/min/1.73 sqM); Sodium 129 mmol/L (137-145); Total Bilirubin 2.2 mg/dL (0.2-1.3); Total Protein 5.1 g/dL (6.3-8.2)
[2024-03-13 06:52] LABS: INR 3.3 (<1.2); Prothrombin Time 33.2 sec (10.0-12.5)
[2024-03-13 06:58] LABS: Potassium 6.6 mmol/L (3.5-5.1)
[2024-03-13 07:05] LABS: Platelet Count 76 k/uL (150-450)
[2024-03-13 07:25] LABS: Lymphocytes # (M) 1.37 k/uL (1.0-4.8); Monocytes # (M) 0.18 k/uL (0-1.0); Neutrophils # (M) 7.55 k/uL (1.3-7.7); Neutrophils % (M) 83 %; Nucleated Red Blood Cells 17 /100 WBC (0-0); Total Cells Counted 200; WBC 9.1 k/uL (3.8-10.6)
[2024-03-13 07:26] LABS: Polychromasia Present
[2024-03-13 07:27] LABS: Crenated RBC Present; Tear Drop Cells Present
[2024-03-13] MEDS: DEXTROSE 50% SYRINGE 50 ML IVP ONE (07:39)
[2024-03-13] MEDS: INSULIN REGULAR 100 UNIT/ML VIAL (IV) IV ONE (07:39)
[2024-03-13] MEDS: SODIUM BICARB 8.4% 50 ML SYR (1 MEQ/ML) IV STA (07:58)
--- NOTE | 2024-03-13 08:02 | XR ---
EXAMINATION TYPE: XR chest 1V portable DATE OF EXAM: 03/13/2024 7:53 AM COMPARISON: 03/12/2024 CLINICAL INDICATION: Female, 79 years old with history of possible fluid overload, TECHNIQUE: XR chest 1V portable view(s) obtained. FINDINGS: The heart size is normal. The pulmonary vasculature is normal. The radiographic findings can lag behind the clinical course. The lungs are clear. There is elevation of the right diaphragm Calcification remains present over the proximal left humerus IMPRESSION: 1. No acute pulmonary process. Note is made of elevated right diaphragm [facility], , 03/13/2024 8:00 AM
[2024-03-13 08:19] LABS: ALT 2319 U/L (4-34); AST 1601 U/L (14-36)
[2024-03-13 08:39] LABS: T4, Free (Free Thyroxine) 1.78 ng/dL (0.78-2.19)
[2024-03-13] MEDS: CALCIUM GLUCONATE IN NACL 1 GM in SALINE 1 100ML.BAG IVPB ONE (09:00)
--- NOTE | 2024-03-13 10:04 | P.CRDCN ---
History of Present Illness Consult date: 03/13/24 Reason for Consult (text): Elevated troponins Consult reason: congestive heart failure History of present illness: Patient is a 79-year-old female who is admitted to the hospital with new onset of weakness. Patient has a known history of renal failure secondary to nephrectomy and renal cancer. She is on home peritoneal dialysis. Patient had watery diarrhea for several days prior to presenting to the emergency room. Patient was found to be hyperkalemic with elevated liver enzymes. Cardiology has been consulted for new onset of atrial fibrillation. DIAGNOSTICS: EKG showed atrial fibrillation with RVR Lab data: WBC 9.1, hemoglobin 14.2, hematocrit 45.1, platelet 76, sodium 129, potassium 6.6, BUN 81, creatinine 6.50 lactic 7.0, calcium 7.3, magnesium 2.4, AST 1601, ALT 2319, ALP 95, troponin 0.16 x 3, TSH 5.3 Echocardiogram shows EF of 20 to 25% with global hypokinesis. Moderate mitral regurgitation Chest x-ray shows no acute pulmonary process Liver ultrasound shows mild free fluid with no acute process REVIEW OF SYSTEMS: Limited due to mental status PHYSICAL EXAMINATION: This is a 79-year-old female in no apparent distress at the time of my examination. HEENT: Head is atraumatic, normocephalic. Pupils are equal, round. There is no jugular venous distention. No carotid bruit is heard. CHEST EXAMINATION: Lungs are clear to auscultation. No chest wall tenderness is noted on palpation or with deep breathing. HEART EXAMINATION: Irregular rate and rhythm. S1, S2 heard. No murmurs, gallops or rub. ABDOMEN: Distended, nontender. Bowel sounds are heard. No organomegaly noted. EXTREMITIES: 2+ peripheral pulses with no evidence of peripheral edema and no calf tenderness noted. NEUROLOGIC EXAMINATION: Patient is asleep, awakens to physical stimuli FINAL ASSESSMENT AND PLAN: A-fib with RVR, new onset Cardiomyopathy, EF 20% Elevated troponins, flat trend, in the setting of hyperkalemia and renal failure Valvular heart disease, moderate MR Elevated liver enzymes End-stage renal disease, on peritoneal dialysis PLAN: Continue heparin drip Continue amiodarone for rate control I am dictating on behalf of Dr Jg Stuart's history/physical and assessment/plan. Past Medical History Past Medical History: Cancer, Heart Failure, CVA/TIA, Eye Disorder, GERD/Reflux, Hyperlipidemia, Hypertension, Musculoskeletal Disorder, Osteoarthritis (OA), Aleksey al Disease, Syncope Additional Past Medical History / Comment(s): Hx diverticulitis. Hx right kidney cancer 2011, B-cell lymphoma. Hx TIA 05/2022. 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 Cataracts. Hx hypoglycemic episodes resulting in syncope. Hx superficial blood clot. History of Any Multi-Drug Resistant Organisms: None Reported Past Surgical History: Bariatric Surgery, Hernia Repair, Hysterectomy, Ton sillectomy Additional Past Surgical History / Comment(s): Hx Gastric bypass (1991), left knee injections, bilateral cataracts removed, right nephrectomy, mediport placement and removal, EGD, colonoscopy. Past Anesthesia/Blood Transfusion Reactions: No Reported Reaction Past Psychological History: Anxiety, Depression Smoking Status: Never smoker Past Alcohol Use History: None Reported Past Drug Use History: None Reported - Past Family History Mother Family Medical History: Diabetes Mellitus Father Family Medical History: Diabetes Mellitus Medications and Allergies Home Medications Medication Instructions Recorded Confirmed Type ALPRAZolam [Xanax] 0.25 mg PO BID 07/30/13 03/12/24 History PARoxetine [Paxil] 20 mg PO DAILY 07/30/13 03/12/24 History Simvastatin [Zocor] 40 mg PO HS 07/30/13 03/12/24 History traMADol HCL [Ultram] 50 mg PO BID 08/11/15 03/12/24 History Famotidine [Pepcid] 20 mg PO BID #60 tablet 08/29/22 03/12/24 Rx Acetaminophen Tab [Tylenol Tab] 500 mg PO Q6H PRN 03/12/24 03/12/24 History Calcium Acetate 667mg Capsule 667 mg PO BID-W/MEALS 03/12/24 03/12/24 History Ergocalciferol [Vitamin D2 (1250 1,250 mcg PO Q30D 03/12/24 03/12/24 History Mcg = 64400 Iu)] Folic Acid/Vit B Complex and C 0.8 mg PO DAILY 03/12/24 03/12/24 History [Nephro-Shaunna Tablet] Furosemide [Lasix] 80 mg PO DAILY 03/12/24 03/12/24 History Mirtazapine [Remeron] 15 mg PO HS 03/12/24 03/12/24 History Potassium Chloride ER [K-Dur 20] 30 meq PO DAILY 03/12/24 03/12/24 History calcitrioL 0.5 mcg PO MOFR 03/12/24 03/12/24 History Allergies Allergy/AdvReac Type Severity Reaction Status Date / Time No Known Allergies Allergy Verified 03/12/24 07:26 Physical Exam Vitals: Vital Signs Temp Pulse Pulse Resp BP BP Pulse Ox 03/13/24 04:52 118 H 91/36 03/13/24 04:40 122 H 15 73/60 94 L 03/13/24 04:15 122 H 16 73/60 94 L 03/13/24 02:00 120 H 96 03/12/24 23:04 98.0 F 147 H 15 104/67 95 03/12/24 23:03 133 H 15 99/54 95 03/12/24 22:13 98.0 F 147 H 16 88/68 77 L 03/12/24 21:16 98.0 F 151 H 16 88/68 77 L 03/12/24 21:04 146 H 20 105/76 98 03/12/24 19:50 163 H 20 105/84 03/12/24 19:00 170 H 20 97/76 93 L 03/12/24 18:00 152 H 17 105/89 93 L 03/12/24 17:00 128 H 19 92/61 89 L 03/12/24 16:00 129 H 19 105/68 90 L 03/12/24 15:50 97.6 F 129 H 20 95 03/12/24 15:00 97.8 F 128 H 20 99/65 89 L 03/12/24 11:24 130 H Intake and Output 03/12/24 03/13/24 03/13/24 22:59 06:59 14:59 Intake Total 720 210.515 Balance 720 210.515 Intake: Intake, IV Titration 210.515 Amount Norepinephrine 4 mg In 210.515 Sodium Chloride 0.9% 250 ml @ 0.35 MCG/KG/MIN 85. 344 mls/hr IV .Q2H59M [facility] Rx#:[id number] Oral 720 Other: Voiding Method Toilet Weight 66.224 kg 64 kg Results 03/13/24 06:17 03/13/24 06:17 Cardiac Enzymes 12/02/2303/12/24 03/13/24 Range/Units 07:50 19:50 06:17 AST 3116 H 1601 H (14-36) U/L Troponin I 0.164 H* (0.000-0.034) ng/mL Coagulation 03/13/24 03/13/24 Range/Units 06:17 06:17 PT 33.2 H (10.0-12.5) sec APTT 30.6 H (22.0-30.0) sec CBC 03/13/24 Range/Units 06:17 WBC 9.1 (3.8-10.6) k/uL RBC 4.42 (3.80-5.40) m/uL Hgb 14.2 (11.4-16.0) gm/dL Hct 45.1 (34.0-46.0) % Plt Count 76 L (150-450) k/uL Comprehensive Metabolic Panel 03/12/24 03/13/24 Range/Units 07:50 06:17 Sodium 129 L (137-145) mmol/L Potassium 6.6 H* (3.5-5.1) mmol/L Chloride 101 (98-107) mmol/L Carbon Dioxide 13 L (22-30) mmol/L BUN 81 H (7-17) mg/dL Creatinine 6.50 H (0.52-1.04) mg/dL Glucose 141 H (74-99) mg/dL Calcium 7.3 L (8.4-10.2) mg/dL AST 3116 H 1601 H (14-36) U/L ALT 2824 H 2319 H (4-34) U/L Alkaline Phosphatase 95 (38-126) U/L Total Protein 5.1 L (6.3-8.2) g/dL Albumin 2.9 L (3.5-5.0) g/dL Current Medications Generic Name Dose Route Start Last Admin Trade Name Freq PRN Reason Stop Dose Admin Calcitriol 0.5 mcg 03/14/24 07:39 Calcitriol 0.25 Mcg Cap PO MOFR R[place] Calcium Acetate 667 mg 03/12/24 17:30 03/12/24 18:37 Calcium Acetate 667 Mg Tab PO 667 mg BID-W/MEALS [place] Administration Ergocalciferol 1,250 mcg 03/17/24 09:00 Ergocalciferol 1,250 Mcg (50,000 Iu) Capsule PO Q30D [facility] Furosemide 80 mg 03/12/24 09:00 03/12/24 10:26 Furosemide 80 Mg Tab PO 80 mg DAILY RICO Administration Heparin Sodium (Porcine) 0 unit 03/12/24 22:35 Heparin Sodium 1,000 Un/Ml (10ml Vl) IV PER PROTOCOL PRN Low PTT Protocol Amiodarone HCl 450 mg/ 250 mls @ 16.667 mls/hr 03/13/24 04:30 Dextrose/Water IV 03/13/24 22:29 .Q15H [place] Protocol 0.5 MG/MIN Heparin Sodium/Sodium Chloride 250 mls @ 7.947 mls/hr 03/12/24 22:45 03/12/24 23:13 25,000 unit/ Sodium Chloride IV 12 units/kg/hr .Q24H RICO 7.947 mls/hr Administration Protocol 12 UNITS/KG/HR Peritoneal Dialysis Solution 50 g in 2,000 mls @ 0 mls/hr 03/13/24 04:00 03/13/24 04:56 Delflex With 2.5% Dextrose (2,000 Ml) INTRAPERIT 200 mls/hr Q6H RICO Administration Protocol As Directed Norepinephrine Bitartrate 4 mg 254 mls @ 85.344 mls/hr 03/13/24 07:00 03/13/24 07:58 / Sodium Chloride IV 0.35 mcg/kg/min .Q2H59M [place] 85.344 mls/hr Administration Protocol 0.35 MCG/KG/MIN Mirtazapine 15 mg 03/12/24 21:00 03/12/24 22:37 Mirtazapine 15 Mg Tab PO 15 mg HS RICO Administration Multivit/Ca Carb/B Cmplx/FA/Prenat 1 each 03/12/24 09:00 03/12/24 10:28 Folic Acid-Vit B Complex-Vit C 1 Cap PO 1 each DAILY [place] Administration Naloxone HCl 0.2 mg 03/13/24 05:46 Naloxone 0.4 Mg/Ml 1 Ml Vial IV Q2M PRN Opioid Reversal Pantoprazole Sodium 40 mg 03/13/24 09:00 Pantoprazole 40 Mg/10 Ml Vial IV DAILY [facility] Paroxetine HCl 20 mg 03/12/24 09:00 03/12/24 10:26 Paroxetine 20 Mg Tab PO 20 mg DAILY [place] Administration Tramadol HCl 50 mg 03/12/24 07:51 03/12/24 23:12 Tramadol 50 Mg Tab PO 50 mg QID PRN Administration Pain Intake and Output 03/12/24 03/13/24 03/13/24 22:59 06:59 14:59 Intake Total 720 210.515 Balance 720 210.515 Intake: Intake, IV Titration 210.515 Amount Norepinephrine 4 mg In 210.515 Sodium Chloride 0.9% 250 ml @ 0.35 MCG/KG/MIN 85. 344 mls/hr IV .Q2H59M [facility] Rx#:[id number] Oral 720 Other: Voiding Method Toilet Weight 66.224 kg 64 kg 03/13/24 06:17 03/13/24 06:17
[2024-03-13] MEDS: ALBUTEROL NEB (CONC) 2.5 MG/0.5 ML INHALATION ONE (10:10)
[2024-03-13] MEDS: AMIODARONE 450 MG in DEXTROSE 5% IN WATER 250 ML IV SCH (10:30)
[2024-03-13 10:36] LABS: Appearance,Urine Cloudy (Clear); Bacteria,Urine Rare /hpf; Bilirubin,Urine 1+ (Negative); Blood,Urine Trace (Negative); Budding Yeast,Urine Few /hpf; Color,Urine Light Red; Glucose,Urine (UA) Negative (Negative); Ketones,Urine Negative (Negative); Leukocyte Esterase,Urine Moderate (Negative); Mucus,Urine Rare /hpf; Nitrite,Urine Negative (Negative); Protein,Urine 2+ (Negative); RBC,Urine 6 /hpf (0-5); Specific Gravity,Urine 1.021 (1.001-1.035); Squamous Epithelial Cell,Urine 1 /hpf (0-4); Urobilinogen,Urine <2.0 mg/dL (<2.0); WBC,Urine 16 /hpf (0-5)
[2024-03-13] MEDS: PANTOPRAZOLE 40 MG/10 ML VIAL IV SCH (11:23)
[2024-03-13] MEDS: SODIUM ZIRCONIUM CYCLOSILICATE 10 GM PACKET PO ONE (11:24)
[2024-03-13] MEDS: DEXTROSE 5% IN WATER 1,000 ML with SODIUM BICARB (1 MEQ/ML) 150 ML IV SCH (12:04)
--- NOTE | 2024-03-13 12:17 | P.PN ---
Subjective patient is seen for follow-up for end-stage renal disease. Maintained on peritoneal dialysis. Patient is having her PD exchange. She remains hypotensive and is maintained on pressors. Levo fed dose has been decreased. no significant complaints. Overall appears improved from yesterday. No complaints of shortness of breath. Objective - Vital Signs Vital signs: Vital Signs Temp 95.0 F L 03/13/24 12:00 Pulse 130 H 03/13/24 12:00 Resp 19 03/13/24 12:00 BP 104/71 03/13/24 12:00 Pulse Ox 95 03/13/24 12:00 FiO2 Intake & Output 03/12/24 03/13/24 03/13/24 18:59 06:59 18:59 Intake Total 720 692.961 Output Total 10 Balance 720 682.961 Weight 64 kg Intake: IV 117 Amiodarone 450 mg In 17 Dextrose 5% in Water 250 ml @ 0.5 MG/MIN 16.667 mls/hr IV .Q15H [facility] Rx#: [id number] Calcium Gluconate in NaCl 100 1 gm In Saline 1 100ml. bag @ 400 mls/hr IVPB ONCE ONE Rx#:[id number] Intake, IV Titration 575.961 Amount Calcium Gluconate in NaCl 40 1 gm In Saline 1 100ml. bag @ 400 mls/hr IVPB ONCE ONE Rx#:[id number] Norepinephrine 4 mg In 535.961 Sodium Chloride 0.9% 250 ml @ 0.35 MCG/KG/MIN 85. 344 mls/hr IV .Q2H59M [facility] Rx#:[id number] Oral 720 Output: Urine 10 Other: Voiding Method Toilet - Exam patient is awake, comfortable, in no acute distress. Examination of the heart S1 and S2 Examination of the lungs bilateral breath sounds are heard Abdomen is soft nontender Examination of lower extremity shows edema 2-3+ bilaterally [employer] exam grossly intact - Labs CBC & Chem 7: 03/13/24 06:17 03/13/24 06:17 Labs: Abnormal Lab Results - Last 24 Hours (Table) 03/12/24 03/12/24 03/13/24 Range/Units 07:50 19:50 05:31 MCV (80.0-100.0) fL RDW (11.5-15.5) % Plt Count (150-450) k/uL Nucleated RBCs (0-0) /100 WBC PT (10.0-12.5) sec INR (<1.2) APTT (22.0-30.0) sec Sodium (137-145) mmol/L Potassium (3.5-5.1) mmol/L Carbon Dioxide (22-30) mmol/L BUN (7-17) mg/dL Creatinine (0.52-1.04) mg/dL Glucose (74-99) mg/dL POC Glucose (mg/dL) 118 H (70-110) mg/dL Plasma Lactic Acid Manish (0.7-2.0) mmol/L Calcium (8.4-10.2) mg/dL Magnesium (1.6-2.3) mg/dL Total Bilirubin (0.2-1.3) mg/dL AST (14-36) U/L ALT (4-34) U/L Creatine Kinase 207 H (30-135) U/L Troponin I 0.164 H* (0.000-0.034) ng/mL Total Protein (6.3-8.2) g/dL Albumin (3.5-5.0) g/dL TSH (0.465-4.680) mIU/L Cortisol (3.1-22.4) UG/DL Urine Appearance (Clear) Urine Protein (Negative) Urine Blood (Negative) Urine Bilirubin (Negative) Ur Leukocyte Esterase (Negative) Urine RBC (0-5) /hpf Urine WBC (0-5) /hpf Urine Bacteria (None) /hpf Urine Mucus (None) /hpf Urine Yeast (Budding) (None) /hpf 03/13/24 03/13/24 03/13/24 Range/Units 06:17 06:17 06:17 MCV (80.0-100.0) fL RDW (11.5-15.5) % Plt Count (150-450) k/uL Nucleated RBCs (0-0) /100 WBC PT 33.2 H (10.0-12.5) sec INR 3.3 H (<1.2) APTT 30.6 H (22.0-30.0) sec Sodium 129 L (137-145) mmol/L Potassium 6.6 H* (3.5-5.1) mmol/L Carbon Dioxide 13 L (22-30) mmol/L BUN 81 H (7-17) mg/dL Creatinine 6.50 H (0.52-1.04) mg/dL Glucose 141 H (74-99) mg/dL POC Glucose (mg/dL) (70-110) mg/dL Plasma Lactic Acid Manish (0.7-2.0) mmol/L Calcium 7.3 L (8.4-10.2) mg/dL Magnesium 2.4 H (1.6-2.3) mg/dL Total Bilirubin 2.2 H (0.2-1.3) mg/dL AST 1601 H (14-36) U/L ALT 2319 H (4-34) U/L Creatine Kinase (30-135) U/L Troponin I (0.000-0.034) ng/mL Total Protein 5.1 L (6.3-8.2) g/dL Albumin 2.9 L (3.5-5.0) g/dL TSH (0.465-4.680) mIU/L Cortisol (3.1-22.4) UG/DL Urine Appearance (Clear) Urine Protein (Negative) Urine Blood (Negative) Urine Bilirubin (Negative) Ur Leukocyte Esterase (Negative) Urine RBC (0-5) /hpf Urine WBC (0-5) /hpf Urine Bacteria (None) /hpf Urine Mucus (None) /hpf Urine Yeast (Budding) (None) /hpf 03/13/24 03/13/24 03/13/24 Range/Units 06:17 06:17 06:17 MCV 102.1 H (80.0-100.0) fL RDW 16.0 H (11.5-15.5) % Plt Count 76 L (150-450) k/uL Nucleated RBCs 17 H (0-0) /100 WBC PT (10.0-12.5) sec INR (<1.2) APTT (22.0-30.0) sec Sodium (137-145) mmol/L Potassium (3.5-5.1) mmol/L Carbon Dioxide (22-30) mmol/L BUN (7-17) mg/dL Creatinine (0.52-1.04) mg/dL Glucose (74-99) mg/dL POC Glucose (mg/dL) (70-110) mg/dL Plasma Lactic Acid Manish 7.0 H* (0.7-2.0) mmol/L Calcium (8.4-10.2) mg/dL Magnesium (1.6-2.3) mg/dL Total Bilirubin (0.2-1.3) mg/dL AST (14-36) U/L ALT (4-34) U/L Creatine Kinase (30-135) U/L Troponin I (0.000-0.034) ng/mL Total Protein (6.3-8.2) g/dL Albumin (3.5-5.0) g/dL TSH 5.370 H (0.465-4.680) mIU/L Cortisol 35.1 H (3.1-22.4) UG/DL Urine Appearance (Clear) Urine Protein (Negative) Urine Blood (Negative) Urine Bilirubin (Negative) Ur Leukocyte Esterase (Negative) Urine RBC (0-5) /hpf Urine WBC (0-5) /hpf Urine Bacteria (None) /hpf Urine Mucus (None) /hpf Urine Yeast (Budding) (None) /hpf 03/13/24 03/13/24 Range/Units 09:40 09:55 MCV (80.0-100.0) fL RDW (11.5-15.5) % Plt Count (150-450) k/uL Nucleated RBCs (0-0) /100 WBC PT (10.0-12.5) sec INR (<1.2) APTT (22.0-30.0) sec Sodium (137-145) mmol/L Potassium (3.5-5.1) mmol/L Carbon Dioxide (22-30) mmol/L BUN (7-17) mg/dL Creatinine (0.52-1.04) mg/dL Glucose (74-99) mg/dL POC Glucose (mg/dL) (70-110) mg/dL Plasma Lactic Acid Manish 8.5 H* (0.7-2.0) mmol/L Calcium (8.4-10.2) mg/dL Magnesium (1.6-2.3) mg/dL Total Bilirubin (0.2-1.3) mg/dL AST (14-36) U/L ALT (4-34) U/L Creatine Kinase (30-135) U/L Troponin I (0.000-0.034) ng/mL Total Protein (6.3-8.2) g/dL Albumin (3.5-5.0) g/dL TSH (0.465-4.680) mIU/L Cortisol (3.1-22.4) UG/DL Urine Appearance Cloudy H (Clear) Urine Protein 2+ H (Negative) Urine Blood Trace H (Negative) Urine Bilirubin 1+ H (Negative) Ur Leukocyte Esterase Moderate H (Negative) Urine RBC 6 H (0-5) /hpf Urine WBC 16 H (0-5) /hpf Urine Bacteria Rare H (None) /hpf Urine Mucus Rare H (None) /hpf Urine Yeast (Budding) Few H (None) /hpf Assessment and Plan Assessment: 1. End-stage renal disease on peritoneal dialysis 2. Significant lower extremity edema 3. Acute hepatitis with hepatitis serologies negative. No new medications started recently. Statins on hold. GI has been consulted. 4. CK D mineral bone disorder 5. Cardiomyopathy with EF of 20-25% 6. Hyperkalemia associated with end-stage renal disease. Expect improvement with dialysis. CK was 207 7. Severe metabolic acidosis from lactic acidosis and end-stage renal disease Plan: change to 1.5% solution every 4 hours add IV bicarb increase UF with peritoneal dialysis DC oral Lasix Continue with calcitriol and PhosLo if able to take oral meds
[2024-03-13 12:33] LABS: African American GFR (CKD) 6 (>60 ml/min/1.73 sqM); Anion Gap 20 mmol/L; Blood Urea Nitrogen 78 mg/dL (7-17); Carbon Dioxide 17 mmol/L (22-30); Chloride 102 mmol/L (98-107); Glucose 109 mg/dL (74-99); Non-African American GFR(CKD) 5 (>60 ml/min/1.73 sqM); Potassium 4.8 mmol/L (3.5-5.1); Sodium 139 mmol/L (137-145)
--- NOTE | 2024-03-13 13:45 | P.PN ---
Subjective Progress Note Date: 03/13/24 Principal diagnosis: Acute hepatitis This is a pleasant 79-year-old female who presented to the emergency department for generalized weakness and feeling unwell. Apparently was having some shortness of breath and lower extremity swelling in her legs. She is on peritoneal dialysis at home. Past medical history includes heart failure, chronic kidney disease on peritoneal dialysis, CVA/TIA, GERD, hyperlipidemia, hypertension, history of bariatric surgery with gastric bypass, and B-cell lymphoma. Patient was noted to have elevated liver function tests on admission with elevated INR. Gastroenterology was consulted for the above. She denies any history of liver disease or alcoholism in the past. She denies any new medications states she does take Tylenol extra strength 1 tablet daily. She denies any abdominal pain, nausea or vomiting. States her appetite has been well. She was noted to have elevated troponins on admission. Hepatitis panel nonreactive, acetaminophen level less than 10. Her blood pressures have been soft, she has been tachycardic. Admitting labs WBC 13 hemoglobin 14 hematocrit 46 platelet count 171,000 INR 2.0 sodium 132 potassium 6.3 BUN 66 creatinine 6.0 total bilirubin 1.6 AST 3488 ALT 2687 alkaline phosphatase 119 Repeat labs today INR remains elevated at 2.8 total bilirubin 1.8 conjugated bilirubin 0.2 unconjugated 0.7 AST 3116 ALT 2824 alkaline phosphatase 117 troponins 0.169 02/12/2024 Patient seen and examined today as a follow-up. She was transferred to the ICU for hypotension requiring pressor support. She is on IV amiodarone, she had elevated troponins and is being followed by cardiology and started on heparin drip. She continues to deny any abdominal pain, no nausea or vomiting. LFTs are actually trending down. INR 3.3, this is status post 5 mg of vitamin K. Total bilirubin 2.2 AST 1601 ALT 2319 alkaline phosphatase 95 Objective - Vital Signs Vital signs: Vital Signs Temp 98.0 F 03/12/24 23:04 Pulse 118 H 03/13/24 04:52 Resp 15 03/13/24 04:40 BP 91/36 03/13/24 04:52 Pulse Ox 94 L 03/13/24 04:40 FiO2 Intake & Output 03/12/24 03/13/24 03/13/24 18:59 06:59 18:59 Intake Total 720 210.515 Balance 720 210.515 Weight 64 kg Intake: Intake, IV Titration 210.515 Amount Norepinephrine 4 mg In 210.515 Sodium Chloride 0.9% 250 ml @ 0.35 MCG/KG/MIN 85. 344 mls/hr IV .Q2H59M [facility] Rx#:[id number] Oral 720 Other: Voiding Method Toilet - Exam General appearance: The patient is alert, oriented, appears in no acute distress. He has bear hugger in place. HET: Head is normocephalic and atraumatic. Conjunctiva pink. Sclera anicteric. Neck: Supple without lymphadenopathy. Abdomen: Soft, nontender, nondistended. Extremities: Normal skin color and turgor. No pedal edema Skin: No rashes, no jaundice Neurological: No focal deficits. Alert and oriented. - Labs CBC & Chem 7: 03/13/24 06:17 03/13/24 11:11 Labs: Abnormal Lab Results - Last 24 Hours (Table) 03/12/24 03/12/24 03/12/24 Range/Units 07:50 07:50 07:50 MCV 100.7 H (80.0-100.0) fL RDW 16.2 H (11.5-15.5) % Plt Count 108 L (150-450) k/uL Neutrophils # (Manual) 9.26 H (1.3-7.7) k/uL Lymphocytes # (Manual) 0.52 L (1.0-4.8) k/uL Nucleated RBCs 4 H (0-0) /100 WBC PT (10.0-12.5) sec INR (<1.2) APTT (22.0-30.0) sec Sodium 132 L (137-145) mmol/L Potassium 6.2 H* (3.5-5.1) mmol/L Chloride 95 L (98-107) mmol/L Carbon Dioxide (22-30) mmol/L BUN 83 H (7-17) mg/dL Creatinine 6.58 H (0.52-1.04) mg/dL Glucose (74-99) mg/dL POC Glucose (mg/dL) (70-110) mg/dL Plasma Lactic Acid Manish (0.7-2.0) mmol/L Calcium (8.4-10.2) mg/dL Magnesium (1.6-2.3) mg/dL Total Bilirubin 1.8 H (0.2-1.3) mg/dL Delta Bilirubin 0.9 H (0.0-0.2) mg/dL AST 3116 H (14-36) U/L ALT 2824 H (4-34) U/L Creatine Kinase 207 H (30-135) U/L Troponin I (0.000-0.034) ng/mL Total Protein 4.8 L (6.3-8.2) g/dL Albumin 2.9 L (3.5-5.0) g/dL TSH (0.465-4.680) mIU/L 03/12/24 03/12/24 03/13/24 Range/Units 07:52 19:50 05:31 MCV (80.0-100.0) fL RDW (11.5-15.5) % Plt Count (150-450) k/uL Neutrophils # (Manual) (1.3-7.7) k/uL Lymphocytes # (Manual) (1.0-4.8) k/uL Nucleated RBCs (0-0) /100 WBC PT (10.0-12.5) sec INR (<1.2) APTT (22.0-30.0) sec Sodium (137-145) mmol/L Potassium (3.5-5.1) mmol/L Chloride (98-107) mmol/L Carbon Dioxide (22-30) mmol/L BUN (7-17) mg/dL Creatinine (0.52-1.04) mg/dL Glucose (74-99) mg/dL POC Glucose (mg/dL) 118 H (70-110) mg/dL Plasma Lactic Acid Manish (0.7-2.0) mmol/L Calcium (8.4-10.2) mg/dL Magnesium (1.6-2.3) mg/dL Total Bilirubin (0.2-1.3) mg/dL Delta Bilirubin (0.0-0.2) mg/dL AST (14-36) U/L ALT (4-34) U/L Creatine Kinase (30-135) U/L Troponin I 0.169 H* 0.164 H* (0.000-0.034) ng/mL Total Protein (6.3-8.2) g/dL Albumin (3.5-5.0) g/dL TSH (0.465-4.680) mIU/L 24 03/13/24 03/13/24 Range/Units 06:17 06:17 06:17 MCV (80.0-100.0) fL RDW (11.5-15.5) % Plt Count (150-450) k/uL Neutrophils # (Manual) (1.3-7.7) k/uL Lymphocytes # (Manual) (1.0-4.8) k/uL Nucleated RBCs (0-0) /100 WBC PT 33.2 H (10.0-12.5) sec INR 3.3 H (<1.2) APTT 30.6 H (22.0-30.0) sec Sodium 129 L (137-145) mmol/L Potassium 6.6 H* (3.5-5.1) mmol/L Chloride (98-107) mmol/L Carbon Dioxide 13 L (22-30) mmol/L BUN 81 H (7-17) mg/dL Creatinine 6.50 H (0.52-1.04) mg/dL Glucose 141 H (74-99) mg/dL POC Glucose (mg/dL) (70-110) mg/dL Plasma Lactic Acid Manish (0.7-2.0) mmol/L Calcium 7.3 L (8.4-10.2) mg/dL Magnesium 2.4 H (1.6-2.3) mg/dL Total Bilirubin 2.2 H (0.2-1.3) mg/dL Delta Bilirubin (0.0-0.2) mg/dL AST 1601 H (14-36) U/L ALT 2319 H (4-34) U/L Creatine Kinase (30-135) U/L Troponin I (0.000-0.034) ng/mL Total Protein 5.1 L (6.3-8.2) g/dL Albumin 2.9 L (3.5-5.0) g/dL TSH (0.465-4.680) mIU/L 24 03/13/24 03/13/24 Range/Units 06:17 06:17 06:17 MCV 102.1 H (80.0-100.0) fL RDW 16.0 H (11.5-15.5) % Plt Count 76 L (150-450) k/uL Neutrophils # (Manual) (1.3-7.7) k/uL Lymphocytes # (Manual) (1.0-4.8) k/uL Nucleated RBCs 17 H (0-0) /100 WBC PT (10.0-12.5) sec INR (<1.2) APTT (22.0-30.0) sec Sodium (137-145) mmol/L Potassium (3.5-5.1) mmol/L Chloride (98-107) mmol/L Carbon Dioxide (22-30) mmol/L BUN (7-17) mg/dL Creatinine (0.52-1.04) mg/dL Glucose (74-99) mg/dL POC Glucose (mg/dL) (70-110) mg/dL Plasma Lactic Acid Manish 7.0 H* (0.7-2.0) mmol/L Calcium (8.4-10.2) mg/dL Magnesium (1.6-2.3) mg/dL Total Bilirubin (0.2-1.3) mg/dL Delta Bilirubin (0.0-0.2) mg/dL AST (14-36) U/L ALT (4-34) U/L Creatine Kinase (30-135) U/L Troponin I (0.000-0.034) ng/mL Total Protein (6.3-8.2) g/dL Albumin (3.5-5.0) g/dL TSH 5.370 H (0.465-4.680) mIU/L Assessment and Plan (1) Acute hepatitis Narrative/Plan: 79-year-old female presenting with generalized weakness and lower extremity swelling with history of end-stage renal disease, on peritoneal dialysis who is hypotensive on admission presented with significantly elevated liver enzymes. No underlying history of liver disease, no reported new medications, does take Tylenol extra strength daily once a day with an acetaminophen level less than 10. Unclear etiology of transaminitis could be secondary to hypoperfusion, need to consider possible medication induced however patient has not had any new medications. EBV, CBV nonreactive. Likely acute hepatitis secondary to hypoperfusion. Current Visit: Yes Status: Acute Code(s): B17.9 - ACUTE VIRAL HEPATITIS, UNSPECIFIED SNOMED Code(s): 91995673 (2) Renal failure treated with peritoneal dialysis Current Visit: Yes Status: Acute Code(s): N19 - UNSPECIFIED KIDNEY FAILURE; Z99.2 - DEPENDENCE ON RENAL DIALYSIS SNOMED Code(s): 58800541 (3) Coagulopathy Narrative/Plan: Elevated INR was treated with vitamin K. Patient now on heparin drip. Current Visit: Yes Status: Acute Code(s): D68.9 - COAGULATION DEFECT, UNSPECIFIED SNOMED Code(s): 34954646 (4) Hyperkalemia Current Visit: Yes Status: Acute Code(s): E87.5 - HYPERKALEMIA SNOMED Code(s): 39189610 (5) Transaminitis Current Visit: Yes Status: Acute Code(s): R74.01 - ELEVATION OF LEVELS OF LIVER TRANSAMINASE LEVELS SNOMED Code(s): 598369037 (6) B-cell lymphoma Current Visit: No Status: Acute Code(s): C85.10 - UNSPECIFIED B-CELL LYMPHOMA, UNSPECIFIED SITE SNOMED Code(s): 898884274 Plan: 1. Continue symptomatic and supportive care 2. Daily CBC, INR, CMP 3. Maintain optimal blood pressures 4. Avoid hepatotoxic medications 5. CT abdomen and pelvis ordered per medical team 6. Continue with recommendations from cardiology 7. Continue with recommendations from dye worker 8. Rest of medical management per primary medical team 9. We will continue to follow and trend LFTs. Likely from hypoperfusion. Further recommendations forthcoming based on clinical course Thank you for this consultation, we will continue to follow. Dr. Lizzeth Conley I agree with the dictator's note, documented as a scribe by Rosalie Eisenberg.
[2024-03-13] MEDS: DIALYSIS (PERIT 1.5%) 2,500 ML 30 G/2,000 ML BAG INTRAPERIT SCH (15:57)
--- NOTE | 2024-03-13 16:06 | CT ---
EXAMINATION TYPE: CT abdomen pelvis w con DATE OF EXAM: 03/13/2024 3:36 PM COMPARISON: CT CLINICAL INDICATION: Female, 79 years old with history of Hepatitis; elevated loiver enzymes TECHNIQUE: Axial CT abdomen pelvis w con;Sagittal and coronal reformats were created on a separate w orkstation. Contrast used:100ml mL of Isovue 300 with IV Contrast, (none if empty) Oral contrast used: without Oral Contrast (none if empty) CT DLP: 883 mGycm, Automated exposure control for dose reduction was used. FINDINGS: LOWER CHEST: Filling defect within the right atrial appendage and right ventricle. Trace bilateral pl eural effusions. Interlobar septal thickening. ABDOMEN LIVER: Unremarkable GALLBLADDER AND BILE DUCTS: Unremarkable. PANCREAS: Unremarkable. SPLEEN: Unremarkable. ADRENAL GLANDS: Unremarkable. KIDNEYS AND URETERS: No evidence of hydronephrosis or renal calculus. The ureters are unremarkable. PELVIS BLADDER: No evidence for wall thickening or mass given limitations of exam. REPRODUCTIVE: Unremarkable. ABDOMEN & PELVIS STOMACH AND BOWEL: No evidence of bowel obstruction. PERITONEUM/RETROPERITONEUM: No evidence of pneumoperitoneum intra-abdominal drainage catheter placed in the abdomen. Small to moderate amount of ascites. VASCULATURE: No evidence of aortic aneurysm. Reflux of contrast into the IVC. MUSCULOSKELETAL: No acute osseous abnormalities, prior injury to the left pubic symphysis compatible with nonhealed fracture. Scoliosis changes to the spine. Pseudoarthrosis of the left spinous process with transitional L5 vertebrae. LYMPH NODES: No gross evidence for lymphadenopathy. SOFT TISSUE/ABDOMINAL WALL: Anasarca of the soft tissues. IMPRESSION: 1. Evidence of congestive heart failure possibly causing congestive hepatopathy given reflux of cont rast. Limited evaluation without contrast. Liver is relatively unremarkable appearance. 2. Filling defect within the right atrial appendage and right ventricle concerning for thrombus. Fur ther workup recommended vascular surgical/cardiology consultation. 3. Nonhealed fracture of the left pubic symphysis. 4. Anasarca and small moderate ascites possible secondary to congestive heart failure. 5. Suspected peritoneum dialysis catheter terminating in the right abdomen. [facility], , 03/13/2024 4:04 PM
[2024-03-13 16:13] LABS: Glucose,Whole Blood 137 mg/dL (70-110)
[2024-03-13] MEDS: DILTIAZEM DRIP BOLUS FROM BAG 1 MG SOLN IV ONE (20:50)
[2024-03-13] MEDS: DILTIAZEM 125 MG in SODIUM CHLORIDE 0.9% 100 ML IV SCH (20:54)
--- NOTE | 2024-03-13 22:23 | P.PN ---
Subjective Patient is a pleasant 79 years old female with past medical history of end-stage renal disease on peritoneal dialysis daily. She follows up with Dr. Lynne. Patient presents because of semiwatery diarrhea for 2 days, she has 2 bowel movements per day with no blood No overt abdominal pain but she complains from pain in her right shoulder and lower back for the last 3 days. No history of trauma She feels very lightheaded and she has to lie down She denies chest pain dyspnea or coughing She denies dizziness weakness or numbness She is complaining from cough with yellow phlegm but no dyspnea No dysuria or urgency She denies smoking alcohol or illicit drugs Vitals showing tachycardia with heart rate around 125, blood pressure 1 110/83. Patient is afebrile Her WBC 13.5, hemoglobin 14.5, platelet count 171 Potassium 6.3 and creatinine 6.0 AST 3488 and ALT 2687, bilirubin is 1.6. INR is 2.0 Troponin is mildly elevated at 0.17, proBNP is elevated [id number] Hepatitis panel was requested and is pending. Chest x-ray is as negative for acute process and reviewed by myself and agree with the findings EKG shows sinus tachycardia at [address]-T changes but there is poor R wave progression 03/12 Patient awake alert looks a pleasant and relaxed sitting up in chair. She still complaining from right shoulder pain and right back pain at the same liver of the right upper quadrant. This could be referred pain from her liver disease. She rated as 7/10. She takes Ultram at home and she required at the dose of 50 mg as lower doses does not work for it. No nausea vomiting. She feels hungry. She did not have bowel movement since admission where she had diarrhea for 2 days prior to hospitalization. Patient also with 3+ bilateral pitting leg edema. Patient stated that it was worse over the last 3 days. She is on Lasix 80 mg daily at home. No signs of bleeding. Monitor INR No chest pain, no dyspnea Vitals look stable Labs from today are pending Tylenol level was checked and it was low Liver ultrasound reviewed by myself showing unremarkable findings. Hold Tylenol, Lipitor, Pepcid for possible liver adverse effect Echocardiogram still pending. 03/13 Patient became hypotensive more overnight and she was transferred to the ICU, she received IV boluses of normal saline This morning she was seen in the ICU she was tired and lethargic but awake. Mildly tachypneic denies any chest pain or dyspnea. Lactic acid is also elevated Echocardiogram showed ejection fraction 20% with global hypokinesia Liver enzymes are trending down Urinalysis is abnormal, but suspicion of infection is not confirmed. CT of the abdomen and pelvis with IV contrast ordered showing anasarca Intracardiac thrombus Patient already started on heparin drip and amiodarone drip for his A-fib and RVR Review of systems CONSTITUTIONAL: No fever, no malaise, no fatigue. HEENT: No recent visual problems or hearing problems. Denied any sore throat. CARDIOVASCULAR: No orthopnea, PND, no palpitations, no syncope. PULMONARY: No shortness of breath, no cough, no hemoptysis. . HEMATOLOGICAL: Denies any bleeding or petechiae. GENITOURINARY: Denies any burning micturition, frequency, or urgency. Active Medications Generic Name Dose Route Start Last Admin Trade Name Freq PRN Reason Stop Dose Admin Alprazolam 0.25 mg 03/12/24 09:00 Alprazolam 0.25 Mg Tab PO BID [place] Calcitriol 0.5 mcg 03/14/24 07:39 Calcitriol 0.25 Mcg Cap PO MOFR [place] Calcium Acetate 667 mg 03/12/24 17:30 Calcium Acetate 667 Mg Tab PO BID-W/MEALS [place] Ergocalciferol 1,250 mcg 03/17/24 09:00 Ergocalciferol 1,250 Mcg (50,000 Iu) Capsule PO Q30D [place] Furosemide 80 mg 03/12/24 09:00 Furosemide 80 Mg Tab PO DAILY R[place] Mirtazapine 15 mg 03/12/24 21:00 Mirtazapine 15 Mg Tab PO HS [facility] Multivit/Ca Carb/B Cmplx/FA/Prenat 1 each 03/12/24 09:00 Folic Acid-Vit B Complex-Vit C 1 Cap PO DAILY R[place] Paroxetine HCl 20 mg 03/12/24 09:00 Paroxetine 20 Mg Tab PO DAILY R[place] Tramadol HCl 50 mg 03/12/24 07:51 Tramadol 50 Mg Tab PO QID PRN Pain Objective - Vital Signs Vital signs: Vital Signs Temp 95.0 F L 03/13/24 08:00 Pulse 123 H 03/13/24 09:45 Resp 11 L 03/13/24 09:45 BP 122/47 03/13/24 09:45 Pulse Ox 97 03/13/24 09:00 FiO2 Intake & Output 03/12/24 03/13/24 03/13/24 18:59 06:59 18:59 Intake Total 720 618.508 Output Total 10 Balance 720 608.508 Weight 64 kg Intake: IV 117 Amiodarone 450 mg In 17 Dextrose 5% in Water 250 ml @ 0.5 MG/MIN 16.667 mls/hr IV .Q15H [facility] Rx#: [id number] Calcium Gluconate in NaCl 100 1 gm In Saline 1 100ml. bag @ 400 mls/hr IVPB ONCE ONE Rx#:[id number] Intake, IV Titration 501.508 Amount Calcium Gluconate in NaCl 40 1 gm In Saline 1 100ml. bag @ 400 mls/hr IVPB ONCE ONE Rx#:[id number] Norepinephrine 4 mg In 461.508 Sodium Chloride 0.9% 250 ml @ 0.35 MCG/KG/MIN 85. 344 mls/hr IV .Q2H59M [facility] Rx#:[id number] Oral 720 Output: Urine 10 Other: Voiding Method Toilet - Exam GENERAL: The patient is alert and oriented x3, not in any acute distress. Well developed, well nourished. HEENT: Pupils are round and equally reacting to light. EOMI. No scleral icterus. No conjunctival pallor. Normocephalic, atraumatic. No pharyngeal erythema. No thyromegaly. CARDIOVASCULAR: S1 and S2 present. No murmurs, rubs, or gallops. PULMONARY: Chest is clear to auscultation, no wheezing , no crackles. ABDOMEN: Soft, nontender, nondistended, normoactive bowel sounds. No palpable o rganomegaly. MUSCULOSKELETAL: No joint swelling or deformity. -EXTREMITIES: No cyanosis, clubbing, bilateral 3+ pitting leg edema. NEUROLOGICAL: Gross neurological examination did not reveal any focal deficits. SKIN: No rashes. no petechiae. - Labs CBC & Chem 7: 03/13/24 06:17 03/13/24 11:11 Labs: Abnormal Lab Results - Last 24 Hours (Table) 03/12/24 03/12/24 03/13/24 Range/Units 07:50 19:50 05:31 MCV (80.0-100.0) fL RDW (11.5-15.5) % Plt Count (150-450) k/uL Nucleated RBCs (0-0) /100 WBC PT (10.0-12.5) sec INR (<1.2) APTT (22.0-30.0) sec Sodium (137-145) mmol/L Potassium (3.5-5.1) mmol/L Carbon Dioxide (22-30) mmol/L BUN (7-17) mg/dL Creatinine (0.52-1.04) mg/dL Glucose (74-99) mg/dL POC Glucose (mg/dL) 118 H (70-110) mg/dL Plasma Lactic Acid Manish (0.7-2.0) mmol/L Calcium (8.4-10.2) mg/dL Magnesium (1.6-2.3) mg/dL Total Bilirubin (0.2-1.3) mg/dL AST (14-36) U/L ALT (4-34) U/L Creatine Kinase 207 H (30-135) U/L Troponin I 0.164 H* (0.000-0.034) ng/mL Total Protein (6.3-8.2) g/dL Albumin (3.5-5.0) g/dL TSH (0.465-4.680) mIU/L Cortisol (3.1-22.4) UG/DL Urine Appearance (Clear) Urine Protein (Negative) Urine Blood (Negative) Urine Bilirubin (Negative) Ur Leukocyte Esterase (Negative) Urine RBC (0-5) /hpf Urine WBC (0-5) /hpf Urine Bacteria (None) /hpf Urine Mucus (None) /hpf Urine Yeast (Budding) (None) /hpf 03/13/24 03/13/24 03/13/24 Range/Units 06:17 06:17 06:17 MCV (80.0-100.0) fL RDW (11.5-15.5) % Plt Count (150-450) k/uL Nucleated RBCs (0-0) /100 WBC PT 33.2 H (10.0-12.5) sec INR 3.3 H (<1.2) APTT 30.6 H (22.0-30.0) sec Sodium 129 L (137-145) mmol/L Potassium 6.6 H* (3.5-5.1) mmol/L Carbon Dioxide 13 L (22-30) mmol/L BUN 81 H (7-17) mg/dL Creatinine 6.50 H (0.52-1.04) mg/dL Glucose 141 H (74-99) mg/dL POC Glucose (mg/dL) (70-110) mg/dL Plasma Lactic Acid Manish (0.7-2.0) mmol/L Calcium 7.3 L (8.4-10.2) mg/dL Magnesium 2.4 H (1.6-2.3) mg/dL Total Bilirubin 2.2 H (0.2-1.3) mg/dL AST 1601 H (14-36) U/L ALT 2319 H (4-34) U/L Creatine Kinase (30-135) U/L Troponin I (0.000-0.034) ng/mL Total Protein 5.1 L (6.3-8.2) g/dL Albumin 2.9 L (3.5-5.0) g/dL TSH (0.465-4.680) mIU/L Cortisol (3.1-22.4) UG/DL Urine Appearance (Clear) Urine Protein (Negative) Urine Blood (Negative) Urine Bilirubin (Negative) Ur Leukocyte Esterase (Negative) Urine RBC (0-5) /hpf Urine WBC (0-5) /hpf Urine Bacteria (None) /hpf Urine Mucus (None) /hpf Urine Yeast (Budding) (None) /hpf 03/13/24 03/13/24 03/13/24 Range/Units 06:17 06:17 06:17 MCV 102.1 H (80.0-100.0) fL RDW 16.0 H (11.5-15.5) % Plt Count 76 L (150-450) k/uL Nucleated RBCs 17 H (0-0) /100 WBC PT (10.0-12.5) sec INR (<1.2) APTT (22.0-30.0) sec Sodium (137-145) mmol/L Potassium (3.5-5.1) mmol/L Carbon Dioxide (22-30) mmol/L BUN (7-17) mg/dL Creatinine (0.52-1.04) mg/dL Glucose (74-99) mg/dL POC Glucose (mg/dL) (70-110) mg/dL Plasma Lactic Acid Manish 7.0 H* (0.7-2.0) mmol/L Calcium (8.4-10.2) mg/dL Magnesium (1.6-2.3) mg/dL Total Bilirubin (0.2-1.3) mg/dL AST (14-36) U/L ALT (4-34) U/L Creatine Kinase (30-135) U/L Troponin I (0.000-0.034) ng/mL Total Protein (6.3-8.2) g/dL Albumin (3.5-5.0) g/dL TSH 5.370 H (0.465-4.680) mIU/L Cortisol 35.1 H (3.1-22.4) UG/DL Urine Appearance (Clear) Urine Protein (Negative) Urine Blood (Negative) Urine Bilirubin (Negative) Ur Leukocyte Esterase (Negative) Urine RBC (0-5) /hpf Urine WBC (0-5) /hpf Urine Bacteria (None) /hpf Urine Mucus (None) /hpf Urine Yeast (Budding) (None) /hpf 03/13/24 03/13/24 Range/Units 09:40 09:55 MCV (80.0-100.0) fL RDW (11.5-15.5) % Plt Count (150-450) k/uL Nucleated RBCs (0-0) /100 WBC PT (10.0-12.5) sec INR (<1.2) APTT (22.0-30.0) sec Sodium (137-145) mmol/L Potassium (3.5-5.1) mmol/L Carbon Dioxide (22-30) mmol/L BUN (7-17) mg/dL Creatinine (0.52-1.04) mg/dL Glucose (74-99) mg/dL POC Glucose (mg/dL) (70-110) mg/dL Plasma Lactic Acid Manish 8.5 H* (0.7-2.0) mmol/L Calcium (8.4-10.2) mg/dL Magnesium (1.6-2.3) mg/dL Total Bilirubin (0.2-1.3) mg/dL AST (14-36) U/L ALT (4-34) U/L Creatine Kinase (30-135) U/L Troponin I (0.000-0.034) ng/mL Total Protein (6.3-8.2) g/dL Albumin (3.5-5.0) g/dL TSH (0.465-4.680) mIU/L Cortisol (3.1-22.4) UG/DL Urine Appearance Cloudy H (Clear) Urine Protein 2+ H (Negative) Urine Blood Trace H (Negative) Urine Bilirubin 1+ H (Negative) Ur Leukocyte Esterase Moderate H (Negative) Urine RBC 6 H (0-5) /hpf Urine WBC 16 H (0-5) /hpf Urine Bacteria Rare H (None) /hpf Urine Mucus Rare H (None) /hpf Urine Yeast (Budding) Few H (None) /hpf Assessment and Plan Assessment: Acute hepatitis, with coagulopathy and INR 2.0 on admission Elevated troponin, rule out cardiac disease. Differential diagnosis due to kidney disease and infection A-fib and RVR Intracardiac thrombus End-stage renal disease on peritoneal dialysis with hyperkalemia present on admission Chronic CHF Hypertension Hyperlipidemia Osteoarthritis History of kidney cancer status post right nephrectomy History of B-cell lymphoma History of stroke Plan: Check hepatitis panel GI team consult No IV fluids Check for C. difficile. Very unlikely patient has C. difficile colitis Nephrology team consult Monitor potassium level Check echocardiogram is reviewed Continue with amiodarone drip and heparin drip Consider cardiology consult Labs and medication were reviewed.. Continue same treatment. Continue with symptomatic treatment. Resume home medication. Monitor labs and vitals. DVT and GI prophylaxis. Further recommendations as per clinical course of the patient DVT prophylaxis, on heparin drip GI Prophylaxis: Prognosis is guarded
--- NOTE | 2024-03-13 23:00 | P.CONS ---
History of Present Illness - Reason for Consult Consult date: 03/13/24 UTI/peritonitis Requesting physician: Richy E Sheet - Chief Complaint Weakness x few days - History of Present Illness Patient is a 79-year-old female with a past medical history significant for hypertension hyperlipidemia osteoarthritis end-stage renal disease on peritoneal dialysis patient presenting to the hospital 2 days ago for evaluation of weakness in this patient apparently symptom has been going on for the last few days before the patient presented to hospital patient did have some diarrhea but has resolved by the time she came to the hospital and was complaining of some shortness of breath patient denies having any headache or URI symptoms no chest pain no shortness of breath occasional cough patient denies having nausea vomiting worsening abdominal pain or any diarrhea still makes some urine on presentation to the hospital the patient was afebrile she was noted to be hypothermic this morning patient was tachycardic and hypotensive requiring pressor support patient was mildly hypoxic currently on 4 L nasal cannula oxygen patient did have a positive UA white count was elevated at 13.5 on admission subsequent white count is normalized creatinine is elevated liver enzymes has been elevated urine has been positive hepatitis panel is negative patient did have a chest x-ray no acute cardiopulmonary disease process infectious disease was consulted today concerning for possible UTI versus peritonitis patient is on empiric ceftriaxone Review of Systems Positive point and negatives has been mentioned in the HPI, complete review of systems was performed and all other systems are negative Past Medical History Past Medical History: Cancer, Heart Failure, CVA/TIA, Eye Disorder, GERD/Reflux, Hyperlipidemia, Hypertension, Musculoskeletal Disorder, Osteoarthritis (OA), Renal Disease, Syncope Additional Past Medical History / Comment(s): Hx diverticulitis. Hx right kidney cancer 2011, B-cell lymphoma. Hx TIA 05/2022. 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 Cataracts. Hx hypoglycemic episodes resulting in syncope. Hx superficial blood clot. History of Any Multi-Drug Resistant Organisms: None Reported Past Surgical History: Bariatric Surgery, Hernia Repair, Hysterectomy, Tonsillectomy Additional Past Surgical History / Comment(s): Hx Gastric bypass (1991), left knee injections, bilateral cataracts removed, right nephrectomy, mediport placement and removal, EGD, colonoscopy. Past Anesthesia/Blood Transfusion Reactions: No Reported Reaction Past Psychological History: Anxiety, Depression Smoking Status: Never smoker Past Alcohol Use History: None Reported Past Drug Use History: None Reported - Past Family History Mother Family Medical History: Diabetes Mellitus Father Family Medical History: Diabetes Mellitus Medications and Allergies Home Medications Medication Instructions Recorded Confirmed Type ALPRAZolam [Xanax] 0.25 mg PO BID 07/30/13 03/12/24 History PARoxetine [Paxil] 20 mg PO DAILY 07/30/13 03/12/24 History Simvastatin [Zocor] 40 mg PO HS 07/30/13 03/12/24 History traMADol HCL [Ultram] 50 mg PO BID 08/11/15 03/12/24 History Famotidine [Pepcid] 20 mg PO BID #60 tablet 08/29/22 03/12/24 Rx Acetaminophen Tab [Tylenol Tab] 500 mg PO Q6H PRN 03/12/24 03/12/24 History Calcium Acetate 667mg Capsule 667 mg PO BID-W/MEALS 03/12/24 03/12/24 History Ergocalciferol [Vitamin D2 (1250 1,250 mcg PO Q30D 03/12/24 03/12/24 History Mcg = 00519 Iu)] Folic Acid/Vit B Complex and C 0.8 mg PO DAILY 03/12/24 03/12/24 History [Nephro-Shaunna Tablet] Furosemide [Lasix] 80 mg PO DAILY 03/12/24 03/12/24 History Mirtazapine [Remeron] 15 mg PO HS 03/12/24 03/12/24 History Potassium Chloride ER [K-Dur 20] 30 meq PO DAILY 03/12/24 03/12/24 History calcitrioL 0.5 mcg PO MOFR 03/12/24 03/12/24 History Allergies Allergy/AdvReac Type Severity Reaction Status Date / Time No Known Allergies Allergy Verified 03/12/24 07:26 Physical Exam Vitals: Vital Signs Temp Pulse Pulse Resp BP BP Pulse Ox 03/13/24 12:00 95.0 F L 130 H 19 104/71 95 03/13/24 11:45 124 H 17 108/66 94 L 03/13/24 11:30 125 H 13 99/83 96 03/13/24 11:15 138 H 31 H 100/82 95 03/13/24 11:00 129 H 28 H 109/72 96 03/13/24 10:45 134 H 21 96/86 98 03/13/24 10:30 118 H 13 105/83 95 03/13/24 10:15 129 H 11 L 95/80 96 03/13/24 10:00 138 H 20 106/91 95 03/13/24 09:45 123 H 11 L 122/47 03/13/24 09:30 112 H 20 117/91 03/13/24 09:15 128 H 11 L 105/90 03/13/24 09:00 133 H 12 119/77 97 03/13/24 08:45 124 H 12 104/78 03/13/24 08:30 124 H 17 119/90 92 L 03/13/24 08:15 120 H 21 112/88 03/13/24 08:00 95.0 F L 123 H 7 L 93/71 03/13/24 07:45 118 H 22 99/83 03/13/24 07:30 116 H 12 102/84 97 03/13/24 07:15 115 H 12 82/50 03/13/24 06:00 118 H 14 90/58 03/13/24 04:52 118 H 91/36 03/13/24 04:40 122 H 15 73/60 94 L 03/13/24 04:15 122 H 16 73/60 94 L 03/13/24 02:00 120 H 96 03/12/24 23:04 98.0 F 147 H 15 104/67 95 03/12/24 23:03 133 H 15 99/54 95 03/12/24 22:13 98.0 F 147 H 16 88/68 77 L 03/12/24 21:16 98.0 F 151 H 16 88/68 77 L 03/12/24 21:04 146 H 20 105/76 98 03/12/24 19:50 163 H 20 105/84 03/12/24 19:00 170 H 20 97/76 93 L 03/12/24 18:00 152 H 17 105/89 93 L 03/12/24 17:00 128 H 19 92/61 89 L 03/12/24 16:00 129 H 19 105/68 90 L 03/12/24 15:50 97.6 F 129 H 20 95 03/12/24 15:00 97.8 F 128 H 20 99/65 89 L Intake and Output 03/12/24 03/13/24 03/13/24 22:59 06:59 14:59 Intake Total 720 692.961 Output Total 10 Balance 720 682.961 Intake: IV 117 Amiodarone 450 mg In 17 Dextrose 5% in Water 250 ml @ 0.5 MG/MIN 16.667 mls/hr IV .Q15H [facility] Rx#: [id number] Calcium Gluconate in NaCl 100 1 gm In Saline 1 100ml. bag @ 400 mls/hr IVPB ONCE ONE Rx#:[id number] Intake, IV Titration 575.961 Amount Calcium Gluconate in NaCl 40 1 gm In Saline 1 100ml. bag @ 400 mls/hr IVPB ONCE ONE Rx#:[id number] Norepinephrine 4 mg In 535.961 Sodium Chloride 0.9% 250 ml @ 0.35 MCG/KG/MIN 85. 344 mls/hr IV .Q2H59M [facility] Rx#:[id number] Oral 720 Output: Urine 10 Other: Voiding Method Toilet Weight 66.224 kg 64 kg GENERAL DESCRIPTION: Elderly female lying in bed, no distress. No tachypnea or accessory muscle of respiration use. HEENT: Shows Pallor , no scleral icterus. Oral mucous membrane is dry. NECK: Trachea central, no thyromegaly. LUNGS: Unlabored breathing. Decreased breath sound at the base HEART: S1, S2, regular rate and rhythm. No loud murmur ABDOMEN: Soft, no tenderness , EXTREMITIES: No edema of feet. SKIN: No rash, no masses palpable. NEUROLOGICAL: The patient is awake, alert, oriented x3, mood and affect normal. Results CBC & Chem 7: 03/13/24 06:17 03/13/24 11:11 Labs: Abnormal Lab Results - Last 24 Hours (Table) 03/12/24 03/12/24 03/13/24 Range/Units 07:50 19:50 05:31 MCV (80.0-100.0) fL RDW (11.5-15.5) % Plt Count (150-450) k/uL Nucleated RBCs (0-0) /100 WBC PT (10.0-12.5) sec INR (<1.2) APTT (22.0-30.0) sec Sodium (137-145) mmol/L Potassium (3.5-5.1) mmol/L Carbon Dioxide (22-30) mmol/L BUN (7-17) mg/dL Creatinine (0.52-1.04) mg/dL Glucose (74-99) mg/dL POC Glucose (mg/dL) 118 H (70-110) mg/dL Plasma Lactic Acid Manish (0.7-2.0) mmol/L Calcium (8.4-10.2) mg/dL Magnesium (1.6-2.3) mg/dL Total Bilirubin (0.2-1.3) mg/dL AST (14-36) U/L ALT (4-34) U/L Creatine Kinase 207 H (30-135) U/L Troponin I 0.164 H* (0.000-0.034) ng/mL Total Protein (6.3-8.2) g/dL Albumin (3.5-5.0) g/dL TSH (0.465-4.680) mIU/L Cortisol (3.1-22.4) UG/DL Urine Appearance (Clear) Urine Protein (Negative) Urine Blood (Negative) Urine Bilirubin (Negative) Ur Leukocyte Esterase (Negative) Urine RBC (0-5) /hpf Urine WBC (0-5) /hpf Urine Bacteria (None) /hpf Urine Mucus (None) /hpf Urine Yeast (Budding) (None) /hpf 03/13/24 03/13/24 03/13/24 Range/Units 06:17 06:17 06:17 MCV (80.0-100.0) fL RDW (11.5-15.5) % Plt Count (150-450) k/uL Nucleated RBCs (0-0) /100 WBC PT 33.2 H (10.0-12.5) sec INR 3.3 H (<1.2) APTT 30.6 H (22.0-30.0) sec Sodium 129 L (137-145) mmol/L Potassium 6.6 H* (3.5-5.1) mmol/L Carbon Dioxide 13 L (22-30) mmol/L BUN 81 H (7-17) mg/dL Creatinine 6.50 H (0.52-1.04) mg/dL Glucose 141 H (74-99) mg/dL POC Glucose (mg/dL) (70-110) mg/dL Plasma Lactic Acid Manish (0.7-2.0) mmol/L Calcium 7.3 L (8.4-10.2) mg/dL Magnesium 2.4 H (1.6-2.3) mg/dL Total Bilirubin 2.2 H (0.2-1.3) mg/dL AST 1601 H (14-36) U/L ALT 2319 H (4-34) U/L Creatine Kinase (30-135) U/L Troponin I (0.000-0.034) ng/mL Total Protein 5.1 L (6.3-8.2) g/dL Albumin 2.9 L (3.5-5.0) g/dL TSH (0.465-4.680) mIU/L Cortisol (3.1-22.4) UG/DL Urine Appearance (Clear) Urine Protein (Negative) Urine Blood (Negative) Urine Bilirubin (Negative) Ur Leukocyte Esterase (Negative) Urine RBC (0-5) /hpf Urine WBC (0-5) /hpf Urine Bacteria (None) /hpf Urine Mucus (None) /hpf Urine Yeast (Budding) (None) /hpf 03/13/24 03/13/24 03/13/24 Range/Units 06:17 06:17 06:17 MCV 102.1 H (80.0-100.0) fL RDW 16.0 H (11.5-15.5) % Plt Count 76 L (150-450) k/uL Nucleated RBCs 17 H (0-0) /100 WBC PT (10.0-12.5) sec INR (<1.2) APTT (22.0-30.0) sec Sodium (137-145) mmol/L Potassium (3.5-5.1) mmol/L Carbon Dioxide (22-30) mmol/L BUN (7-17) mg/dL Creatinine (0.52-1.04) mg/dL Glucose (74-99) mg/dL POC Glucose (mg/dL) (70-110) mg/dL Plasma Lactic Acid Manish 7.0 H* (0.7-2.0) mmol/L Calcium (8.4-10.2) mg/dL Magnesium (1.6-2.3) mg/dL Total Bilirubin (0.2-1.3) mg/dL AST (14-36) U/L ALT (4-34) U/L Creatine Kinase (30-135) U/L Troponin I (0.000-0.034) ng/mL Total Protein (6.3-8.2) g/dL Albumin (3.5-5.0) g/dL TSH 5.370 H (0.465-4.680) mIU/L Cortisol 35.1 H (3.1-22.4) UG/DL Urine Appearance (Clear) Urine Protein (Negative) Urine Blood (Negative) Urine Bilirubin (Negative) Ur Leukocyte Esterase (Negative) Urine RBC (0-5) /hpf Urine WBC (0-5) /hpf Urine Bacteria (None) /hpf Urine Mucus (None) /hpf Urine Yeast (Budding) (None) /hpf 03/13/24 03/13/24 Range/Units 09:40 09:55 MCV (80.0-100.0) fL RDW (11.5-15.5) % Plt Count (150-450) k/uL Nucleated RBCs (0-0) /100 WBC PT (10.0-12.5) sec INR (<1.2) APTT (22.0-30.0) sec Sodium (137-145) mmol/L Potassium (3.5-5.1) mmol/L Carbon Dioxide (22-30) mmol/L BUN (7-17) mg/dL Creatinine (0.52-1.04) mg/dL Glucose (74-99) mg/dL POC Glucose (mg/dL) (70-110) mg/dL Plasma Lactic Acid Manish 8.5 H* (0.7-2.0) mmol/L Calcium (8.4-10.2) mg/dL Magnesium (1.6-2.3) mg/dL Total Bilirubin (0.2-1.3) mg/dL AST (14-36) U/L ALT (4-34) U/L Creatine Kinase (30-135) U/L Troponin I (0.000-0.034) ng/mL Total Protein (6.3-8.2) g/dL Albumin (3.5-5.0) g/dL TSH (0.465-4.680) mIU/L Cortisol (3.1-22.4) UG/DL Urine Appearance Cloudy H (Clear) Urine Protein 2+ H (Negative) Urine Blood Trace H (Negative) Urine Bilirubin 1+ H (Negative) Ur Leukocyte Esterase Moderate H (Negative) Urine RBC 6 H (0-5) /hpf Urine WBC 16 H (0-5) /hpf Urine Bacteria Rare H (None) /hpf Urine Mucus Rare H (None) /hpf Urine Yeast (Budding) Few H (None) /hpf Assessment and Plan (1) Leukocytosis Current Visit: Yes Status: Acute Code(s): D72.829 - ELEVATED WHITE BLOOD CELL COUNT, UNSPECIFIED SNOMED Code(s): 868946090 Plan: 1patient presented to hospital with generalized weakness which is likely multifactorial patient did have a elevated white count and patient subsequently normalized however the patient has been tachycardic did have a positive UA and this patient is to make some urine despite being on peritoneal dialysis with a question of UTI versus PD catheter associated peritonitis 2-peritoneal fluid should be sent for cell count differential and culture urine cultures are pending 3-patient also have elevated liver enzymes hepatitis panel is negative CT is currently in progress to rule out any hepatocellular/gallbladder disease 4-continue with empiric Rocephin while waiting for the workup to be completed We will follow on clinical condition and cultures to further adjust medication if needed Thank you for this consultation we will follow the patient along with you Dictation was produced using [employer] dictation software. please excuse any grammatical, word or spelling errors. Time with Patient: Greater than 30
[2024-03-14 00:48] LABS: Glucose,Whole Blood 134 mg/dL (70-110)
[2024-03-14 05:03] LABS: Anisocytosis Slight; HCT 42.5 % (34.0-46.0); HGB 13.1 gm/dL (11.4-16.0); Hypochromasia Moderate; MCH 31.7 pg (25.0-35.0); MCHC 30.9 g/dL (31.0-37.0); MCV 102.7 fL (80.0-100.0); Macrocytosis Moderate; Platelet Count 42 k/uL (150-450); RBC 4.14 m/uL (3.80-5.40); RDW 16.1 % (11.5-15.5)
[2024-03-14 05:12] LABS: African American GFR (CKD) 7 (>60 ml/min/1.73 sqM); Anion Gap 13 mmol/L; Blood Urea Nitrogen 75 mg/dL (7-17); Calcium 7.5 mg/dL (8.4-10.2); Carbon Dioxide 21 mmol/L (22-30); Chloride 99 mmol/L (98-107); Glucose 121 mg/dL (74-99); Non-African American GFR(CKD) 6 (>60 ml/min/1.73 sqM); Sodium 133 mmol/L (137-145)
[2024-03-14 05:18] LABS: Potassium 4.9 mmol/L (3.5-5.1)
[2024-03-14 06:12] LABS: Band Neutrophils % 9 %; Neutrophils % (M) 82 %; Nucleated Red Blood Cells 60 /100 WBC (0-0); Total Cells Counted 200
[2024-03-14 06:13] LABS: Anisocytosis (M) Present; Lymphocytes # (M) 0.25 k/uL (1.0-4.8); Polychromasia Present; WBC 8.4 k/uL (3.8-10.6)
[2024-03-14 06:39] LABS: Glucose,Whole Blood 102 mg/dL (70-110)
[2024-03-14 07:03] LABS: Albumin 2.3 g/dL (3.5-5.0); Bilirubin, Conjugated 0.2 mg/dL (0.0-0.3); Bilirubin, Delta 1.3 mg/dL (0.0-0.2); Bilirubin,Unconjugated 0.4 mg/dL (0.0-1.1); Total Bilirubin 1.9 mg/dL (0.2-1.3); Total Protein 4.3 g/dL (6.3-8.2)
--- NOTE | 2024-03-14 08:04 | US ---
EXAMINATION TYPE: US venous doppler duplex UE RT DATE OF EXAM: 03/14/2024 COMPARISON: NONE CLINICAL INDICATION: Female, 79 years old with history of suspected dvt in right arm; redness in arm TECHNIQUE: Grayscale, color Doppler and spectral Doppler imaging of the upper extremity. SIDE PERFORMED: right FINDINGS: Right Arm: Echoes seen in the upper basilic vein, not near the origin. Echoes in one of the lower br achial veins with no compression. Forearm limited due to swelling and pt unable to tolerate pressure. Grayscale, color doppler, spectral doppler imaging performed of the deep veins of the upper extremiti es. IMPRESSION: 1. Limited exam. 2. Thrombus suspected within the distal brachial region [facility], , 03/14/2024 8:02 AM
[2024-03-14] MEDS ORDERED: DESMOPRESSIN ACETATE 4 MCG/ML VIAL (MDV) IV SCH (09:00)
[2024-03-14] MEDS ORDERED: MORPHINE SULFATE 4 MG/ML SYRINGE IV PRN (10:24)
[2024-03-14] MEDS ORDERED: MORPHINE SULFATE 2 MG/ML SYRINGE IV PRN (10:24)
--- NOTE | 2024-03-14 11:21 | P.PN ---
Subjective Progress Note Date: 03/14/24 Principal diagnosis: Acute hepatitis This is a pleasant 79-year-old female who presented to the emergency department for generalized weakness and feeling unwell. Apparently was having some shortness of breath and lower extremity swelling in her legs. She is on peritoneal dialysis at home. Past medical history includes heart failure, chronic kidney disease on peritoneal dialysis, CVA/TIA, GERD, hyperlipidemia, hypertension, history of bariatric surgery with gastric bypass, and B-cell lymphoma. Patient was noted to have elevated liver function tests on admission with elevated INR. Gastroenterology was consulted for the above. She denies any history of liver disease or alcoholism in the past. She denies any new medications states she does take Tylenol extra strength 1 tablet daily. She denies any abdominal pain, nausea or vomiting. States her appetite has been well. She was noted to have elevated troponins on admission. Hepatitis panel nonreactive, acetaminophen level less than 10. Her blood pressures have been soft, she has been tachycardic. Admitting labs WBC 13 hemoglobin 14 hematocrit 46 platelet count 171,000 INR 2.0 sodium 132 potassium 6.3 BUN 66 creatinine 6.0 total bilirubin 1.6 AST 3488 ALT 2687 alkaline phosphatase 119 Repeat labs today INR remains elevated at 2.8 total bilirubin 1.8 conjugated bilirubin 0.2 unconjugated 0.7 AST 3116 ALT 2824 alkaline phosphatase 117 troponins 0.169 03/13/2024 Patient seen and examined today as a follow-up. She was transferred to the ICU for hypotension requiring pressor support. She is on IV amiodarone, she had elevated troponins and is being followed by cardiology and started on heparin drip. She continues to deny any abdominal pain, no nausea or vomiting. LFTs are actually trending down. INR 3.3, this is status post 5 mg of vitamin K. Total bilirubin 2.2 AST 1601 ALT 2319 alkaline phosphatase 95 03/14/2024 Patient seen and examined today as a follow-up. She remains in the ICU on pressors. Patient was on a heparin drip that was discontinued because platelets continue to drop and patient was having bleeding from her peritoneal dialysis. She continues to deny any abdominal pain, nausea or vomiting. WBC 8.4 hemoglobin 13 platelet count 42,000 total bilirubin 1.9 AST 3643 ALT 3206 alkaline phosphatase 95. Patient had CT abdomen pelvis that reported evidence of congestive heart failure possibly causing congestive hepatopathy given reflux of contrast. Limited evaluation without contrast. Liver is relatively unremarkable appearance. Filling defect within the right atrial appendage and right ventricle concerning for thrombus. Further workup recommended vascular surgical/cardiology consultation. Nonhealing fracture of left pubic symphysis. Anasarca and small moderate ascites possible secondary to congestive heart failure. Suspected peritoneum dialysis catheter terminating in the right abdomen. Objective - Vital Signs Vital signs: Vital Signs Temp 97.5 F L 03/14/24 04:00 Pulse 95 03/14/24 07:00 Resp 24 03/14/24 07:00 BP 97/82 03/14/24 07:00 Pulse Ox 98 03/14/24 07:00 FiO2 Intake & Output 03/13/24 03/14/24 03/14/24 18:59 06:59 18:59 Intake Total 2720.310 9861.762 75 Output Total 15 0 0 Balance 1671.314 8448.762 75 Weight 76.1 kg Intake: IV 536 917 75 Amiodarone 450 mg In 136 17 Dextrose 5% in Water 250 ml @ 0.5 MG/MIN 16.667 mls/hr IV .Q15H [facility] Rx#: [id number] Calcium Gluconate in NaCl 100 1 gm In Saline 1 100ml. bag @ 400 mls/hr IVPB ONCE ONE Rx#:[id number] Dextrose 5% in Water 1, 300 900 75 000 ml @ 75 mls/hr IV . [id number] [facility] with Sodium Bicarb (1 Meq/ml) 150 ml Rx#:[id number] Intake, IV Titration 788.399 7209.762 Amount Amiodarone 450 mg In 250 Dextrose 5% in Water 250 ml @ 0.5 MG/MIN 16.667 mls/hr IV .Q15H [facility] Rx#: [id number] Calcium Gluconate in NaCl 40 1 gm In Saline 1 100ml. bag @ 400 mls/hr IVPB ONCE ONE Rx#:[id number] Heparin Sod,Pork in 0.45% 105.563 132.45 NaCl 25,000 unit In 0.45 % NaCl 1 250ml.bag @ 12 UNITS/KG/HR 7.947 mls/hr IV .Q24H [facility] Rx#: [id number] Norepinephrine 4 mg In 719.572 657.312 Sodium Chloride 0.9% 250 ml @ 0.35 MCG/KG/MIN 85. 344 mls/hr IV .Q2H59M [facility] Rx#:[id number] Output: Urine 15 0 0 Other: Voiding Method Indwelling Catheter Indwelling Catheter CAPD - Exam General appearance: The patient is alert, oriented, appears in no acute distress. He has bear hugger in place. HET: Head is normocephalic and atraumatic. Conjunctiva pink. Sclera anicteric. Neck: Supple without lymphadenopathy. Abdomen: Soft, nontender, nondistended. Extremities: Normal skin color and turgor. No pedal edema Skin: No rashes, no jaundice Neurological: No focal deficits. Alert and oriented. - Labs CBC & Chem 7: 03/14/24 04:35 03/14/24 04:35 Labs: Abnormal Lab Results - Last 24 Hours (Table) 03/13/24 03/13/24 03/13/24 Range/Units 06:17 06:17 06:17 MCV (80.0-100.0) fL MCHC (31.0-37.0) g/dL RDW (11.5-15.5) % Plt Count 76 L (150-450) k/uL Lymphocytes # (Manual) (1.0-4.8) k/uL Nucleated RBCs 17 H (0-0) /100 WBC APTT (22.0-30.0) sec Sodium (137-145) mmol/L Carbon Dioxide (22-30) mmol/L BUN (7-17) mg/dL Creatinine (0.52-1.04) mg/dL Glucose (74-99) mg/dL POC Glucose (mg/dL) (70-110) mg/dL Plasma Lactic Acid Manish (0.7-2.0) mmol/L Calcium (8.4-10.2) mg/dL AST 1601 H (14-36) U/L ALT 2319 H (4-34) U/L TSH 5.370 H (0.465-4.680) mIU/L Cortisol 35.1 H (3.1-22.4) UG/DL Urine Appearance (Clear) Urine Protein (Negative) Urine Blood (Negative) Urine Bilirubin (Negative) Ur Leukocyte Esterase (Negative) Urine RBC (0-5) /hpf Urine WBC (0-5) /hpf Urine Bacteria (None) /hpf Urine Mucus (None) /hpf Urine Yeast (Budding) (None) /hpf 03/13/24 03/13/24 03/13/24 Range/Units 09:40 09:55 11:11 MCV (80.0-100.0) fL MCHC (31.0-37.0) g/dL RDW (11.5-15.5) % Plt Count (150-450) k/uL Lymphocytes # (Manual) (1.0-4.8) k/uL Nucleated RBCs (0-0) /100 WBC APTT (22.0-30.0) sec Sodium (137-145) mmol/L Carbon Dioxide 17 L (22-30) mmol/L BUN 78 H (7-17) mg/dL Creatinine 6.72 H (0.52-1.04) mg/dL Glucose 109 H (74-99) mg/dL POC Glucose (mg/dL) (70-110) mg/dL Plasma Lactic Acid Manish 8.5 H* (0.7-2.0) mmol/L Calcium 8.0 L (8.4-10.2) mg/dL AST (14-36) U/L ALT (4-34) U/L TSH (0.465-4.680) mIU/L Cortisol (3.1-22.4) UG/DL Urine Appearance Cloudy H (Clear) Urine Protein 2+ H (Negative) Urine Blood Trace H (Negative) Urine Bilirubin 1+ H (Negative) Ur Leukocyte Esterase Moderate H (Negative) Urine RBC 6 H (0-5) /hpf Urine WBC 16 H (0-5) /hpf Urine Bacteria Rare H (None) /hpf Urine Mucus Rare H (None) /hpf Urine Yeast (Budding) Few H (None) /hpf 03/13/24 03/13/24 03/14/24 Range/Units 16:12 18:56 00:46 MCV (80.0-100.0) fL MCHC (31.0-37.0) g/dL RDW (11.5-15.5) % Plt Count (150-450) k/uL Lymphocytes # (Manual) (1.0-4.8) k/uL Nucleated RBCs (0-0) /100 WBC APTT 60.6 H (22.0-30.0) sec Sodium (137-145) mmol/L Carbon Dioxide (22-30) mmol/L BUN (7-17) mg/dL Creatinine (0.52-1.04) mg/dL Glucose (74-99) mg/dL POC Glucose (mg/dL) 137 H 134 H (70-110) mg/dL Plasma Lactic Acid Manish (0.7-2.0) mmol/L Calcium (8.4-10.2) mg/dL AST (14-36) U/L ALT (4-34) U/L TSH (0.465-4.680) mIU/L Cortisol (3.1-22.4) UG/DL Urine Appearance (Clear) Urine Protein (Negative) Urine Blood (Negative) Urine Bilirubin (Negative) Ur Leukocyte Esterase (Negative) Urine RBC (0-5) /hpf Urine WBC (0-5) /hpf Urine Bacteria (None) /hpf Urine Mucus (None) /hpf Urine Yeast (Budding) (None) /hpf 03/14/24 03/14/24 03/14/24 Range/Units 04:35 04:35 04:35 MCV 102.7 H (80.0-100.0) fL MCHC 30.9 L (31.0-37.0) g/dL RDW 16.1 H (11.5-15.5) % Plt Count 42 L (150-450) k/uL Lymphocytes # (Manual) 0.25 L (1.0-4.8) k/uL Nucleated RBCs 60 H (0-0) /100 WBC APTT 60.6 H (22.0-30.0) sec Sodium 133 L (137-145) mmol/L Carbon Dioxide 21 L (22-30) mmol/L BUN 75 H (7-17) mg/dL Creatinine 5.74 H (0.52-1.04) mg/dL Glucose 121 H (74-99) mg/dL POC Glucose (mg/dL) (70-110) mg/dL Plasma Lactic Acid Manish (0.7-2.0) mmol/L Calcium 7.5 L (8.4-10.2) mg/dL AST (14-36) U/L ALT (4-34) U/L TSH (0.465-4.680) mIU/L Cortisol (3.1-22.4) UG/DL Urine Appearance (Clear) Urine Protein (Negative) Urine Blood (Negative) Urine Bilirubin (Negative) Ur Leukocyte Esterase (Negative) Urine RBC (0-5) /hpf Urine WBC (0-5) /hpf Urine Bacteria (None) /hpf Urine Mucus (None) /hpf Urine Yeast (Budding) (None) /hpf Microbiology - Last 24 Hours (Table) 03/13/24 05:22 Gram Stain - Preliminary Peritoneal Fluid Assessment and Plan (1) Acute hepatitis Narrative/Plan: 79-year-old female presenting with generalized weakness and lower extremity swelling with history of end-stage renal disease, on peritoneal dialysis who is hypotensive on admission presented with significantly elevated liver enzymes. No underlying history of liver disease, no reported new medications, does take Tylenol extra strength daily once a day with an acetaminophen level less than 10. Unclear etiology of transaminitis could be secondary to hypoperfusion, need to consider possible medication induced however patient has not had any new medications. EBV, CBV nonreactive. Likely acute hepatitis secondary to hypoperfusion and shock liver. No further workup indicated at this time. Current Visit: Yes Status: Acute Code(s): B17.9 - ACUTE VIRAL HEPATITIS, UNSPECIFIED SNOMED Code(s): 39486238 (2) Renal failure treated with peritoneal dialysis Current Visit: Yes Status: Acute Code(s): N19 - UNSPECIFIED KIDNEY FAILURE; Z99.2 - DEPENDENCE ON RENAL DIALYSIS SNOMED Code(s): 03827527 (3) Coagulopathy Current Visit: Yes Status: Acute Code(s): D68.9 - COAGULATION DEFECT, UNSPECIFIED SNOMED Code(s): 41292934 (4) Hyperkalemia Current Visit: Yes Status: Acute Code(s): E87.5 - HYPERKALEMIA SNOMED Code (s): 21357139 (5) Transaminitis Current Visit: Yes Status: Acute Code(s): R74.01 - ELEVATION OF LEVELS OF LIVER TRANSAMINASE LEVELS SNOMED Code(s): 508736248 (6) B-cell lymphoma Current Visit: No Status: Acute Code(s): C85.10 - UNSPECIFIED B-CELL LYMPHOMA, UNSPECIFIED SITE SNOMED Code(s): 390091313 (7) Thrombocytopenia Current Visit: Yes Status: Acute Code(s): D69.6 - THROMBOCYTOPENIA, UNSPECIFIED SNOMED Code(s): 088456950 Plan: 1. Continue symptomatic and supportive care 2. Maintain optimal blood pressures 3. Patient with multiple comorbidities with multiple consultants 4. Renal diet 5. Acute hepatitis likely secondary to shock liver from hypoperfusion and multiple comorbidities 6. No further workup from gastroenterology Thank you for allowing us to participate in the care of the patient, the GI service will sign off, gastroenterology will not be available at the hospital this weekend. If further evaluation by gastroenterology is required the patient will need transfer as per the primary team's discretion. Dr. Lizzeth Conley I agree with the dictator's note, documented as a scribe by Rosalie Eisenberg.
--- NOTE | 2024-03-14 12:34 | CDI ---
Documentation Clarification Form Date: 03/14/2024 12:03:54 PM From: Antonella Lama RN, CCDS Phone: [phone] Admit Date: 03/11/2024 07:09:00 PM Patient Name: Bee Townsend Visit Number: [id number] Discharge Date: ATTENTION: The Clinical Documentation Specialists (CDI) and [facility] Coding Staff appreciate your assistance in clarifying documentation. Please respond to the clarification below the line at the bottom and electronically sign. The CDI & [facility] Coding staff will review the response and follow-up if needed. Please note: Queries are made part of the Legal Health Record. If you have any questions, please contact the author of this message via ITS. Doctor/Provider: Richy E Sheet Your patient has the documented diagnosis of unspecified CHF in your H/P and ongoing progress notes. Additional information regarding the [type, acuity] of CHF is requested. History/Risk Factors: Cancer, Heart Failure, CVA/TIA, Eye Disorder, GERD/Reflux, Hyperlipidemia, Hypertension, ESRD on Peritoneal dialysis Clinical Indicators: 79-year-old female who presents to the ED for weakness, VS/Pulse OX: 103/73 70 16 97.9 99% RA BNP: [id number] Echocardiogram Results: EF of 20-25% with global hypokinesis. Moderate mitral regurgitation (per cardiology consult 03/13/24) Chest X Ray: (03/11) No acute cardiopulmonary disease/process CT abd/pelvis: Evidence of congestive heart failure possible congestive hepatopathy given reflux of contrast. Treatment: Cardiac Monitoring, Telemetry Lasix 80 mg po daily 03/12) 03/13 Cardiology consult: Cardiomyopathy, EF 20%, Elevated troponins, flat trend, in the setting of hyperkalemia and renal failure. A-fib with RVR, new onset In your professional opinion, can you please clarify the acuity and type of CHF if known? [x ] Acute Systolic Heart Failure (reduced EF) [ ] Chronic Systolic Heart Failure (reduced EF) [ ] Acute on Chronic Systolic Heart Failure (reduced EF) [ ] Other, please specify Acute Systolic and diastolic Heart Failure (reduced EF) [ ] Unable to determine (Template Last Revised: May 2020) MTDD
[2024-03-14 12:59] VITALS: TEMP 97.6
--- NOTE | 2024-03-14 13:08 | P.PN ---
Subjective Progress Note Date: 03/14/24 Patient is a 79-year-old female with past medical history significant for hyperlipidemia, hypertension, heart failure with reduced ejection fraction, TIA/CVA, renal cancer, end-stage renal disease with peritoneal dialysis, B-cell lymphoma, among other things. Patient presented the ED back on 03/11/2024 with chief complaint of generalized weakness,. She has noticed increased swelling of her lower extremities. She is known to have chronic kidney disease and uses peritoneal dialysis at home. While in the ED, patient was noted to have a severely elevated potassium level of 6.3. She is given a potassium cocktail including gram of calcium chloride, 1 amp bicarb, 10 regular units of insulin, 1 amp D50 W, and Lokelma. Unfortunately, her potassium is back up to 6.2. Since then, she is receiving 2 rounds of peritoneal dialysis. Her net fluid losses total 500 cc. CBC from yesterday: WBC count 10.4, hemoglobin 13.3, hematocrit 41.8, platelets 108. Coagulation profile includes a PT of 28.3, INR of 2.8, and a PTT of 22.2. Most recent CMP from yesterday sodium 132, potassium 6.2, chloride 95, serum bicarb 25, BUN 83, creatinine 6.58, glucose 74. LFTs were elevated with an AST of 3116, ALT of 2824, ALP of 117. Hepatitis panel was unremarkable. Her serial troponins were elevated including 0.17, 0.164, 0.169, 0.164. Echocardiogram done this admission showing enlarged left ventricle with global decrease in contractility with an estimated left ventricular ejection fraction of 20%. Moderate mitral regurgitation and mild tricuspid regurgitation. Yesterday evening, the patient was noted to go into A-fib RVR with a rate up to 150 bpm. Cardiology was consulted, and patient was placed on a combination of amiodarone per protocol and IV heparin. I was called about this patient earlier this morning, apparently, patient was found to be profoundly hypotensive. I went to evaluate this patient on the cardiac stepdown unit. She is currently lethargic. Blood pressure is 60s over Doppler. I gave the patient a total of 1 L normal saline bolus so far. Heart rhythm remains A- fib with rapid ventricular response, rates in the 100-120s. She is currently on amiodarone infusion which is infusing at 0.5 mg/min. Heparin is infusing per protocol. Also has an additional fluid bolus infusing. I am recommending that this patient be transferred to the intensive care unit. The patient is seen today March 14, 2024 in follow-up in the intensive care unit. She is currently awake and alert. She is quite weak. Low 90s on 3 L/min per nasal cannula. She has been afebrile. She is requiring norepinephrine at 11 mcg/min. She is on amiodarone drip at 0.5 mg/min. Cardizem drip at 5 mg/h. D5W with 3 A of bicarb at 75 mL/h. Heparin drip is currently on hold. Platelets at 42,000. White count 8.4. Hemoglobin 13.1. Sodium 133. Potassium 4.9. Bicarb 21. BUN 75. Creatinine 5.74. Glucose 121. AST 3643. ALT 3206. Right arm edema and Doppler revealed thrombus suspected within the distal brachial region. Ultrasound CAT scan of the abdomen revealed evidence of congestive heart failure possibly causing congestive hepatic hepatopathy hepatopathy given reflux of contrast. Liver is relatively unremarkable appearance. Filling defect within the right atrial appendage and right ventricle concerning for thrombus. Nonhealed fracture of the left pubic symphysis. Anasarca and small to moderate ascites secondary to congestive heart failure. Peritoneal catheter terminating in the right abdomen. Peritoneal fluid cultures are pending. Urine culture revealed no growth. She is currently on ceftriaxone. Objective - Vital Signs Vital signs: Vital Signs Temp 97.5 F L 03/14/24 08:00 Pulse 90 03/14/24 10:00 Resp 21 03/14/24 10:00 BP 98/65 03/14/24 10:00 Pulse Ox 90 L 03/14/24 10:00 FiO2 Intake & Output 03/13/24 03/14/24 03/14/24 18:59 06:59 18:59 Intake Total 6506.977 3536.762 507.467 Output Total 15 0 0 Balance 3265.941 4506.762 507.467 Weight 76.1 kg Intake: IV 536 917 300 Amiodarone 450 mg In 136 17 Dextrose 5% in Water 250 ml @ 0.5 MG/MIN 16.667 mls/hr IV .Q15H [facility] Rx#: [id number] Calcium Gluconate in NaCl 100 1 gm In Saline 1 100ml. bag @ 400 mls/hr IVPB ONCE ONE Rx#:[id number] Dextrose 5% in Water 1, 300 900 300 000 ml @ 75 mls/hr IV . [id number] [facility] with Sodium Bicarb (1 Meq/ml) 150 ml Rx#:[id number] Intake, IV Titration 345.053 5025.762 207.467 Amount Amiodarone 450 mg In 250 Dextrose 5% in Water 250 ml @ 0.5 MG/MIN 16.667 mls/hr IV .Q15H [facility] Rx#: [id number] Calcium Gluconate in NaCl 40 1 gm In Saline 1 100ml. bag @ 400 mls/hr IVPB ONCE ONE Rx#:[id number] Heparin Sod,Pork in 0.45% 105.563 132.45 NaCl 25,000 unit In 0.45 % NaCl 1 250ml.bag @ 12 UNITS/KG/HR 7.947 mls/hr IV .Q24H [facility] Rx#: [id number] Norepinephrine 4 mg In 719.572 657.312 207.467 Sodium Chloride 0.9% 250 ml @ 0.35 MCG/KG/MIN 85. 344 mls/hr IV .Q2H59M [facility] Rx#:[id number] Output: Urine 15 0 0 Other: Voiding Method Indwelling Catheter Indwelling Catheter Indwelling Catheter CAPD CAPD - Exam GENERAL EXAM: Lethargic. Weak 79-year-old female, on 2 L/min per nasal cannula. HEAD: Normocephalic and atraumatic EYES: Normal reaction of pupils, equal size. NOSE: Clear with pink turbinates. THROAT: No erythema or exudates. NECK: No masses, no JVD. CHEST: No chest wall deformity. LUNGS: Equal air entry with no crackles, wheeze, rhonchi or dullness.No conversational dyspnea or accessory muscle use.. CVS: S1 and S2 normal with no audible murmur, irregular rhythm. No extra heart sounds ABDOMEN: Active bowel sounds, abdominal ascites, no guarding or rigidity, no hepatosplenomegaly. peritoneal get dialysis catheter noted, insertion site is clean, dry, without erythema or drainage. SPINE: No scoliosis or deformity SKIN: No rashes CENTRAL NERVOUS SYSTEM: Lethargic, no focal deficits, tone is normal in all 4 extremities. EXTREMITIES: There lower extremity edema 3+ bilaterally, no clubbing, or cyanosis. Peripheral pulses weak with Doppler. Patient's extremities are pink clammy. - Labs CBC & Chem 7: 03/14/24 04:35 03/14/24 04:35 Labs: Abnormal Lab Results - Last 24 Hours (Table) 03/13/24 03/13/24 03/14/24 Range/Units 16:12 18:56 00:46 MCV (80.0-100.0) fL MCHC (31.0-37.0) g/dL RDW (11.5-15.5) % Plt Count (150-450) k/uL Lymphocytes # (Manual) (1.0-4.8) k/uL Nucleated RBCs (0-0) /100 WBC APTT 60.6 H (22.0-30.0) sec Sodium (137-145) mmol/L Carbon Dioxide (22-30) mmol/L BUN (7-17) mg/dL Creatinine (0.52-1.04) mg/dL Glucose (74-99) mg/dL POC Glucose (mg/dL) 137 H 134 H (70-110) mg/dL Calcium (8.4-10.2) mg/dL Total Bilirubin (0.2-1.3) mg/dL Delta Bilirubin (0.0-0.2) mg/dL AST (14-36) U/L ALT (4-34) U/L Total Protein (6.3-8.2) g/dL Albumin (3.5-5.0) g/dL 03/14/24 03/14/24 03/14/24 Range/Units 04:35 04:35 04:35 MCV 102.7 H (80.0-100.0) fL MCHC 30.9 L (31.0-37.0) g/dL RDW 16.1 H (11.5-15.5) % Plt Count 42 L (150-450) k/uL Lymphocytes # (Manual) 0.25 L (1.0-4.8) k/uL Nucleated RBCs 60 H (0-0) /100 WBC APTT 60.6 H (22.0-30.0) sec Sodium 133 L (137-145) mmol/L Carbon Dioxide 21 L (22-30) mmol/L BUN 75 H (7-17) mg/dL Creatinine 5.74 H (0.52-1.04) mg/dL Glucose 121 H (74-99) mg/dL POC Glucose (mg/dL) (70-110) mg/dL Calcium 7.5 L (8.4-10.2) mg/dL Total Bilirubin (0.2-1.3) mg/dL Delta Bilirubin (0.0-0.2) mg/dL AST (14-36) U/L ALT (4-34) U/L Total Protein (6.3-8.2) g/dL Albumin (3.5-5.0) g/dL 03/14/24 Range/Units 04:35 MCV (80.0-100.0) fL MCHC (31.0-37.0) g/dL RDW (11.5-15.5) % Plt Count (150-450) k/uL Lymphocytes # (Manual) (1.0-4.8) k/uL Nucleated RBCs (0-0) /100 WBC APTT (22.0-30.0) sec Sodium (137-145) mmol/L Carbon Dioxide (22-30) mmol/L BUN (7-17) mg/dL Creatinine (0.52-1.04) mg/dL Glucose (74-99) mg/dL POC Glucose (mg/dL) (70-110) mg/dL Calcium (8.4-10.2) mg/dL Total Bilirubin 1.9 H (0.2-1.3) mg/dL Delta Bilirubin 1.3 H (0.0-0.2) mg/dL AST 3643 H (14-36) U/L ALT 3206 H (4-34) U/L Total Protein 4.3 L (6.3-8.2) g/dL Albumin 2.3 L (3.5-5.0) g/dL Microbiology - Last 24 Hours (Table) 03/13/24 09:55 Urine Culture - Final Urine,Voided 03/13/24 05:22 Gram Stain - Preliminary Peritoneal Fluid Body Fluid Culture - Preliminary Assessment and Plan Assessment: Atrial fibrillation with rapid ventricular response, initiated on Cardizem and heparin drip. Hypotension and shock, possibly secondary to above requiring norepinephrine. Elevated troponins, possibly secondary to above Nonischemic cardiomyopathy, with an ejection fraction of 20%, moderate MR and mild tricuspid regurgitation. Elevated transaminitis, suspect secondary to acute congestive heart failure hepatopathy Coagulopathy, secondary to above End-stage renal disease, maintained on peritoneal dialysis Severe hyperkalemia, improved Bilateral lower extremity edema History of hyperlipidemia History of hypertension History of CVA/TIA History of renal cancer and previous nephrectomy History of B-cell lymphoma History of gastric bypass Plan: The patient was seen and evaluated Chest x-ray, labs and medications reviewed Continue Cardizem drip Continue norepinephrine for mean arterial pressure greater than 65 Continue amiodarone Continue bicarb drip Heparin currently on hold due to thrombocytopenia and multiple areas of ecchymosis Check a HIT panel Check a procalcitonin Overall prognosis is quite poor The patient's family was at the bedside Made a DNR CODE STATUS Considering comfort care I have personally seen and examined the patient, performed the documentation and the assessment and plan as written. Number of minutes spent on the visit: 15 Dictation was produced using [employer] dictation software. Please excuse any grammatical, word or spelling errors.
--- NOTE | 2024-03-14 14:04 | P.GSCN ---
History of Present Illness Consult date: 03/14/24 History of present illness: CHIEF COMPLAINT: Weakness HISTORY OF PRESENT ILLNESS: This is a 79-year-old female who presented to the hospital with weakness, lower extremity edema and hypotension. Patient also found to have atrial fibrillation, possible thrombus in right ventricle and a new DVT in the right arm. Patient was started on IV heparin 2 days ago. Patient is also on Levophed for hypotension. Patient does have a known history of end-stage renal disease and is on peritoneal dialysis. PD catheter was placed on September 01, 2022. Last night the nurses were having issues with with the peritoneal dialysis. This morning around 4 AM the outflow from the peritoneal dialysis catheter was maggy blood. The IV heparin was put on hold and no further PD exchanges were completed. Surgical service was consulted due to the bleeding from the PD catheter. Patient was also noted to be thrombocytopenic with platelets of 42. Hemoglobin was at 13. Patient's family has changed CODE STATUS to DNR. And are discussing possible comfort care measures. PAST MEDICAL HISTORY: See below PAST SURGICAL HISTORY: See below MEDICATIONS: See below ALLERGIES: See below SOCIAL HISTORY: No illicit drug use. REVIEW OF SYSTEMS: CONSTITUTIONAL: Denies fever or chills. HEENT: Denies blurred vision, vision changes, or eye pain. Denies hemoptysis CARDIOVASCULAR: Denies chest pain or pressure. RESPIRATORY: No shortness of breath. GASTROINTESTINAL: See HPI for pertinent findings HEMATOLOGIC: Denies bleeding disorders. GENITOURINARY: Denies any blood in urine or increased urinary frequency. SKIN: Denies pruitis. Denies rash. PHYSICAL EXAM: VITAL SIGNS: Reviewed GENERAL: Well-developed in no acute distress. HEENT: No sclera icterus. Extraocular movements grossly intact. Moist buccal mucosa. Head is atraumatic, normocephalic. No nasal drainage. ABDOMEN: Soft. Nondistended. Nontender. Peritoneal catheter noted site noted. It is clean dry and intact. No drainage noted around site. NEUROLOGIC: Awake and alert LABORATORY DATA: WBC 8.4 Hgb 13.1 platelets 42 INR 3.3 Sodium is 133 potassium is 4.9 creatinine 5.74 Total bilirubin 1.9 AST 3643 ALT 3206 Hepatitis panel negative HIT panel pending IMAGING: CT scan abdomen and pelvis reports evidence of congestive heart failure possibly causing congestive hepatopathy given reflux of contrast. Filling defect within the right atrial appendage and right ventricle concerning for thrombus. Nonheal ed fracture of the left pubic symphysis. Anasarca and small moderate ascites possible secondary to congestive heart failure. Suspected peritoneum dialysis catheter terminating in the right abdomen. Echo EF of 20% ASSESSMENT: 1. End-stage renal disease on peritoneal dialysis with blood draining from PD catheter. Patient had been on IV heparin as well as she is thrombocytopenic. PLAN: -Continue to hold IV heparin -Continue to hold peritoneal dialysis catheter fluid exchanges -Continue ICU management and supportive care -No surgical intervention planned at this time -Awaiting family's decision regarding comfort care. CODE STATUS is currently DNR Physician Outside Contractor Sales note has been reviewed by physician. Signing provider agrees with the documented findings, assessment, and plan of care. I have personally seen and examined the patient, reviewed the RADIOGRAPHIC TECHNOLOGIST /PAs history, exam and MDM and agree with the assessment and plan as written. Based on total visit time, I have performed more than 50% of the visit. As above: Patient with spontaneous bleeding while on heparin drip for clotting i ssues. Bleeding noted through peritoneal dialysis catheter. Patient with CAT scan yesterday showing ascites. Density within the fluid seen on CAT scan does not necessarily look like all blood. CAT scan not showing any obvious solid organ source of bleeding. Along with that the patient's hemoglobin has remained relatively stable overnight with a hemoglobin most recently of 13. Agree with holding heparin drip at this time. No surgical intervention planned. Family apparently is considering comfort measures. Would hold peritoneal dialysis for now. Follow hemoglobin. Continue ICU care and support. Past Medical History Past Medical History: Cancer, Heart Failure, CVA/TIA, Eye Disorder, GERD/Reflux, Hyperlipidemia, Hypertension, Musculoskeletal Disorder, Osteoarthritis (OA), Renal Disease, Syncope Additional Past Medical History / Comment(s): Hx diverticulitis. Hx right kidney cancer 2011, B-cell lymphoma. Hx TIA 05/2022. 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 Cataracts. Hx hypoglycemic episodes resulting in syncope. Hx superficial blood clot. History of Any Multi-Drug Resistant Organisms: None Reported Past Surgical History: Bariatric Surgery, Hernia Repair, Hysterectomy, Tonsillectomy Additional Past Surgical History / Comment(s): Hx Gastric bypass (1991), left knee injections, bilateral cataracts removed, right nephrectomy, mediport placement and removal, EGD, colonoscopy. Past Anesthesia/Blood Transfusion Reactions: No Reported Reaction Past Psychological History: Anxiety, Depression Smoking Status: Never smoker Past Alcohol Use History: None Reported Past Drug Use History: None Reported - Past Family History Mother Family Medical History: Diabetes Mellitus Father Family Medical History: Diabetes Mellitus Medications and Allergies Home Medications Medication Instructions Recorded Confirmed Type ALPRAZolam [Xanax] 0.25 mg PO BID 07/30/13 03/12/24 History PARoxetine [Paxil] 20 mg PO DAILY 07/30/13 03/12/24 History Simvastatin [Zocor] 40 mg PO HS 07/30/13 03/12/24 History traMADol HCL [Ultram] 50 mg PO BID 08/11/15 03/12/24 History Famotidine [Pepcid] 20 mg PO BID #60 tablet 08/29/22 03/12/24 Rx Acetaminophen Tab [Tylenol Tab] 500 mg PO Q6H PRN 03/12/24 03/12/24 History Calcium Acetate 667mg Capsule 667 mg PO BID-W/MEALS 03/12/24 03/12/24 History Ergocalciferol [Vitamin D2 (1250 1,250 mcg PO Q30D 03/12/24 03/12/24 History Mcg = 85681 Iu)] Folic Acid/Vit B Complex and C 0.8 mg PO DAILY 03/12/24 03/12/24 History [Nephro-Shaunna Tablet] Furosemide [Lasix] 80 mg PO DAILY 03/12/24 03/12/24 History Mirtazapine [Remeron] 15 mg PO HS 03/12/24 03/12/24 History Potassium Chloride ER [K-Dur 20] 30 meq PO DAILY 03/12/24 03/12/24 History calcitrioL 0.5 mcg PO MOFR 03/12/24 03/12/24 History Allergies Allergy/AdvReac Type Severity Reaction Status Date / Time No Known Allergies Allergy Verified 03/12/24 07:26 Surgical - Exam Vital Signs Temp Pulse Resp BP Pulse Ox 97.9 F 70 16 103/73 99 03/11/24 13:05 03/11/24 13:05 03/11/24 13:05 03/11/24 13:05 03/11/24 13:05 Results - Labs 03/14/24 04:35 03/14/24 04:35 Abnormal Lab Results - Last 24 Hours (Table) 03/13/24 03/13/24 03/13/24 Range/Units 06:17 09:55 11:11 MCV (80.0-100.0) fL MCHC (31.0-37.0) g/dL RDW (11.5-15.5) % Plt Count (150-450) k/uL Lymphocytes # (Manual) (1.0-4.8) k/uL Nucleated RBCs (0-0) /100 WBC APTT (22.0-30.0) sec Sodium (137-145) mmol/L Carbon Dioxide 17 L (22-30) mmol/L BUN 78 H (7-17) mg/dL Creatinine 6.72 H (0.52-1.04) mg/dL Glucose 109 H (74-99) mg/dL POC Glucose (mg/dL) (70-110) mg/dL Calcium 8.0 L (8.4-10.2) mg/dL Total Bilirubin (0.2-1.3) mg/dL Delta Bilirubin (0.0-0.2) mg/dL AST (14-36) U/L ALT (4-34) U/L Total Protein (6.3-8.2) g/dL Albumin (3.5-5.0) g/dL Cortisol 35.1 H (3.1-22.4) UG/DL Urine Appearance Cloudy H (Clear) Urine Protein 2+ H (Negative) Urine Blood Trace H (Negative) Urine Bilirubin 1+ H (Negative) Ur Leukocyte Esterase Moderate H (Negative) Urine RBC 6 H (0-5) /hpf Urine WBC 16 H (0-5) /hpf Urine Bacteria Rare H (None) /hpf Urine Mucus Rare H (None) /hpf Urine Yeast (Budding) Few H (None) /hpf 03/13/24 03/13/24 03/14/24 Range/Units 16:12 18:56 00:46 MCV (80.0-100.0) fL MCHC (31.0-37.0) g/dL RDW (11.5-15.5) % Plt Count (150-450) k/uL Lymphocytes # (Manual) (1.0-4.8) k/uL Nucleated RBCs (0-0) /100 WBC APTT 60.6 H (22.0-30.0) sec Sodium (137-145) mmol/L Carbon Dioxide (22-30) mmol/L BUN (7-17) mg/dL Creatinine (0.52-1.04) mg/dL Glucose (74-99) mg/dL POC Glucose (mg/dL) 137 H 134 H (70-110) mg/dL Calcium (8.4-10.2) mg/dL Total Bilirubin (0.2-1.3) mg/dL Delta Bilirubin (0.0-0.2) mg/dL AST (14-36) U/L ALT (4-34) U/L Total Protein (6.3-8.2) g/dL Albumin (3.5-5.0) g/dL Cortisol (3.1-22.4) UG/DL Urine Appearance (Clear) Urine Protein (Negative) Urine Blood (Negative) Urine Bilirubin (Negative) Ur Leukocyte Esterase (Negative) Urine RBC (0-5) /hpf Urine WBC (0-5) /hpf Urine Bacteria (None) /hpf Urine Mucus (None) /hpf Urine Yeast (Budding) (None) /hpf 03/14/24 03/14/24 03/14/24 Range/Units 04:35 04:35 04:35 MCV 102.7 H (80.0-100.0) fL MCHC 30.9 L (31.0-37.0) g/dL RDW 16.1 H (11.5-15.5) % Plt Count 42 L (150-450) k/uL Lymphocytes # (Manual) 0.25 L (1.0-4.8) k/uL Nucleated RBCs 60 H (0-0) /100 WBC APTT 60.6 H (22.0-30.0) sec Sodium 133 L (137-145) mmol/L Carbon Dioxide 21 L (22-30) mmol/L BUN 75 H (7-17) mg/dL Creatinine 5.74 H (0.52-1.04) mg/dL Glucose 121 H (74-99) mg/dL POC Glucose (mg/dL) (70-110) mg/dL Calcium 7.5 L (8.4-10.2) mg/dL Total Bilirubin (0.2-1.3) mg/dL Delta Bilirubin (0.0-0.2) mg/dL AST (14-36) U/L ALT (4-34) U/L Total Protein (6.3-8.2) g/dL Albumin (3.5-5.0) g/dL Cortisol (3.1-22.4) UG/DL Urine Appearance (Clear) Urine Protein (Negative) Urine Blood (Negative) Urine Bilirubin (Negative) Ur Leukocyte Esterase (Negative) Urine RBC (0-5) /hpf Urine WBC (0-5) /hpf Urine Bacteria (None) /hpf Urine Mucus (None) /hpf Urine Yeast (Budding) (None) /hpf 03/14/24 Range/Units 04:35 MCV (80.0-100.0) fL MCHC (31.0-37.0) g/dL RDW (11.5-15.5) % Plt Count (150-450) k/uL Lymphocytes # (Manual) (1.0-4.8) k/uL Nucleated RBCs (0-0) /100 WBC APTT (22.0-30.0) sec Sodium (137-145) mmol/L Carbon Dioxide (22-30) mmol/L BUN (7-17) mg/dL Creatinine (0.52-1.04) mg/dL Glucose (74-99) mg/dL POC Glucose (mg/dL) (70-110) mg/dL Calcium (8.4-10.2) mg/dL Total Bilirubin 1.9 H (0.2-1.3) mg/dL Delta Bilirubin 1.3 H (0.0-0.2) mg/dL AST 3643 H (14-36) U/L ALT 3206 H (4-34) U/L Total Protein 4.3 L (6.3-8.2) g/dL Albumin 2.3 L (3.5-5.0) g/dL Cortisol (3.1-22.4) UG/DL Urine Appearance (Clear) Urine Protein (Negative) Urine Blood (Negative) Urine Bilirubin (Negative) Ur Leukocyte Esterase (Negative) Urine RBC (0-5) /hpf Urine WBC (0-5) /hpf Urine Bacteria (None) /hpf Urine Mucus (None) /hpf Urine Yeast (Budding) (None) /hpf Microbiology - Last 24 Hours (Table) 03/13/24 05:22 Gram Stain - Preliminary Peritoneal Fluid Body Fluid Culture - Preliminary Diabetes panel 03/13/24 03/14/24 03/14/24 Range/Units 11:11 04:35 04:35 Sodium 139 133 L (137-145) mmol/L Potassium 4.8 4.9 (3.5-5.1) mmol/L Chloride 102 99 (98-107) mmol/L Carbon Dioxide 17 L 21 L (22-30) mmol/L BUN 78 H 75 H (7-17) mg/dL Creatinine 6.72 H 5.74 H (0.52-1.04) mg/dL Glucose 109 H 121 H (74-99) mg/dL Calcium 8.0 L 7.5 L (8.4-10.2) mg/dL AST 3643 H (14-36) U/L ALT 3206 H (4-34) U/L Alkaline Phosphatase 95 (38-126) U/L Total Protein 4.3 L (6.3-8.2) g/dL Albumin 2.3 L (3.5-5.0) g/dL Calcium panel 03/13/24 03/14/24 03/14/24 Range/Units 11:11 04:35 04:35 Calcium 8.0 L 7.5 L (8.4-10.2) mg/dL Albumin 2.3 L (3.5-5.0) g/dL Pituitary panel 03/13/24 03/14/24 Range/Units 11:11 04:35 Sodium 139 133 L (137-145) mmol/L Potassium 4.8 4.9 (3.5-5.1) mmol/L Chloride 102 99 (98-107) mmol/L Carbon Dioxide 17 L 21 L (22-30) mmol/L BUN 78 H 75 H (7-17) mg/dL Creatinine 6.72 H 5.74 H (0.52-1.04) mg/dL Glucose 109 H 121 H (74-99) mg/dL Calcium 8.0 L 7.5 L (8.4-10.2) mg/dL Adrenal panel 03/13/24 03/14/24 03/14/24 Range/Units 11:11 04:35 04:35 Sodium 139 133 L (137-145) mmol/L Potassium 4.8 4.9 (3.5-5.1) mmol/L Chloride 102 99 (98-107) mmol/L Carbon Dioxide 17 L 21 L (22-30) mmol/L BUN 78 H 75 H (7-17) mg/dL Creatinine 6.72 H 5.74 H (0.52-1.04) mg/dL Glucose 109 H 121 H (74-99) mg/dL Calcium 8.0 L 7.5 L (8.4-10.2) mg/dL Total Bilirubin 1.9 H (0.2-1.3) mg/dL AST 3643 H (14-36) U/L ALT 3206 H (4-34) U/L Alkaline Phosphatase 95 (38-126) U/L Total Protein 4.3 L (6.3-8.2) g/dL Albumin 2.3 L (3.5-5.0) g/dL
[2024-03-14] MEDS: MORPHINE SULFATE (100 MG/2 ML) 100 MG in SODIUM CHLORIDE 0.9% 100 ML IV SCH (15:26)
[2024-03-14] MEDS: SCOPOLAMINE 1 MG/72 HR PATCH TRANSDERM SCH (15:27)
[2024-03-14] MEDS: ATROPINE OPHTH SOLN 1% 5ML BTL SUBLINGUAL PRN (15:30)
[2024-03-14] MEDS: MORPHINE SULFATE 4 MG/ML SYRINGE IVP ONE (15:32)
--- NOTE | 2024-03-14 15:54 | P.PN ---
Subjective patient is seen for follow-up for end-stage renal disease. Maintained on peritoneal dialysis. Nursing staff was not able to fill in any fluid for dialysis exchange last night and security risk analyst they noticed maggy blood during an attempt to drain. Surgery has been consulted. There are plans for possible comfort care measures. Platelet count was low at 42,000. Heparin currently on hold. CT abdomen showed evidence of anasarca and volume overload. Suggestion of hepatic congestion. Objective - Vital Signs Vital signs: Vital Signs Temp 97.6 F 03/14/24 12:00 Pulse 92 03/14/24 15:00 Resp 15 03/14/24 15:00 BP 87/54 03/14/24 15:00 Pulse Ox 88 L 03/14/24 15:00 FiO2 Intake & Output 03/13/24 03/14/24 03/14/24 18:59 06:59 18:59 Intake Total 3515.482 9600.762 906.364 Output Total 15 0 0 Balance 2408.242 2893.762 906.364 Weight 76.1 kg Intake: IV 536 917 675 Amiodarone 450 mg In 136 17 Dextrose 5% in Water 250 ml @ 0.5 MG/MIN 16.667 mls/hr IV .Q15H RICO Rx#: [id number] Calcium Gluconate in NaCl 100 1 gm In Saline 1 100ml. bag @ 400 mls/hr IVPB ONCE ONE Rx#:[id number] Dextrose 5% in Water 1, 300 900 675 000 ml @ 75 mls/hr IV . [id number] RICO with Sodium Bicarb (1 Meq/ml) 150 ml Rx#:[id number] Intake, IV Titration 419.402 8816.762 231.364 Amount Amiodarone 450 mg In 250 Dextrose 5% in Water 250 ml @ 0.5 MG/MIN 16.667 mls/hr IV .Q15H RICO Rx#: [id number] Calcium Gluconate in NaCl 40 1 gm In Saline 1 100ml. bag @ 400 mls/hr IVPB ONCE ONE Rx#:[id number] Heparin Sod,Pork in 0.45% 105.563 132.45 NaCl 25,000 unit In 0.45 % NaCl 1 250ml.bag @ 12 UNITS/KG/HR 7.947 mls/hr IV .Q24H RICO Rx#: [id number] Norepinephrine 4 mg In 719.572 657.312 231.364 Sodium Chloride 0.9% 250 ml @ 0.35 MCG/KG/MIN 85. 344 mls/hr IV .Q2H59M RICO Rx#:[id number] Output: Urine 15 0 0 Other: Voiding Method Indwelling Catheter Indwelling Catheter Indwelling Catheter CAPD CAPD - Exam patient is awake, comfortable, in no acute distress. Examination of the heart S1 and S2 Examination of the lungs bilateral breath sounds are heard Abdomen is soft nontender Examination of lower extremity shows edema 2-3+ bilaterally INK MAKER exam grossly intact - Labs CBC & Chem 7: 03/14/24 04:35 03/14/24 04:35 Labs: Abnormal Lab Results - Last 24 Hours (Table) 03/13/24 03/13/24 03/14/24 Range/Units 16:12 18:56 00:46 MCV (80.0-100.0) fL MCHC (31.0-37.0) g/dL RDW (11.5-15.5) % Plt Count (150-450) k/uL Lymphocytes # (Manual) (1.0-4.8) k/uL Nucleated RBCs (0-0) /100 WBC APTT 60.6 H (22.0-30.0) sec Sodium (137-145) mmol/L Carbon Dioxide (22-30) mmol/L BUN (7-17) mg/dL Creatinine (0.52-1.04) mg/dL Glucose (74-99) mg/dL POC Glucose (mg/dL) 137 H 134 H (70-110) mg/dL Calcium (8.4-10.2) mg/dL Total Bilirubin (0.2-1.3) mg/dL Delta Bilirubin (0.0-0.2) mg/dL AST (14-36) U/L ALT (4-34) U/L Total Protein (6.3-8.2) g/dL Albumin (3.5-5.0) g/dL 03/14/24 03/14/24 03/14/24 Range/Units 04:35 04:35 04:35 MCV 102.7 H (80.0-100.0) fL MCHC 30.9 L (31.0-37.0) g/dL RDW 16.1 H (11.5-15.5) % Plt Count 42 L (150-450) k/uL Lymphocytes # (Manual) 0.25 L (1.0-4.8) k/uL Nucleated RBCs 60 H (0-0) /100 WBC APTT 60.6 H (22.0-30.0) sec Sodium 133 L (137-145) mmol/L Carbon Dioxide 21 L (22-30) mmol/L BUN 75 H (7-17) mg/dL Creatinine 5.74 H (0.52-1.04) mg/dL Glucose 121 H (74-99) mg/dL POC Glucose (mg/dL) (70-110) mg/dL Calcium 7.5 L (8.4-10.2) mg/dL Total Bilirubin (0.2-1.3) mg/dL Delta Bilirubin (0.0-0.2) mg/dL AST (14-36) U/L ALT (4-34) U/L Total Protein (6.3-8.2) g/dL Albumin (3.5-5.0) g/dL 03/14/24 Range/Units 04:35 MCV (80.0-100.0) fL MCHC (31.0-37.0) g/dL RDW (11.5-15.5) % Plt Count (150-450) k/uL Lymphocytes # (Manual) (1.0-4.8) k/uL Nucleated RBCs (0-0) /100 WBC APTT (22.0-30.0) sec Sodium (137-145) mmol/L Carbon Dioxide (22-30) mmol/L BUN (7-17) mg/dL Creatinine (0.52-1.04) mg/dL Glucose (74-99) mg/dL POC Glucose (mg/dL) (70-110) mg/dL Calcium (8.4-10.2) mg/dL Total Bilirubin 1.9 H (0.2-1.3) mg/dL Delta Bilirubin 1.3 H (0.0-0.2) mg/dL AST 3643 H (14-36) U/L ALT 3206 H (4-34) U/L Total Protein 4.3 L (6.3-8.2) g/dL Albumin 2.3 L (3.5-5.0) g/dL Microbiology - Last 24 Hours (Table) 03/13/24 09:55 Urine Culture - Final Urine,Voided 03/13/24 05:22 Gram Stain - Preliminary Peritoneal Fluid Body Fluid Culture - Preliminary Assessment and Plan Assessment: 1. End-stage renal disease on peritoneal dialysis. Bleeding was noted from PD catheter early this morning and dialysis is currently on hold. Surgery has been consulted and awaiting decision regarding CODE STATUS to decide further intervention. 2. Significant lower extremity edema and third spacing. 3. Acute hepatitis with hepatitis serologies negative. No new medications started recently. Statins on hold. GI has been consulted. CTA of the abdomen did not show any evidence of biliary obstruction. There is suggestion of hepatic congestion from CHF. 4. CK D mineral bone disorder 5. Cardiomyopathy with EF of 20-25% 6. Hyperkalemia associated with end-stage renal disease. Expect improvement with dialysis. CK was 207 7. Severe metabolic acidosis from lactic acidosis and end-stage renal disease 8. Filling defect in right atrial appendage/right ventricle suggestive of thrombus 9. Thrombocytopenia. Heparin has been discontinued Plan: Continue to hold peritoneal dialysis for now. It appears that family is leaning towards comfort care.
[2024-03-14 17:14] VITALS: BP 65/35; PULSE 83
[2024-03-14 21:39] VITALS: RESP 22
--- NOTE | 2024-03-14 21:56 | P.PN ---
Subjective Progress Note Date: 03/14/24 The patient is a 79-year-old female who is admitted to the hospital with new onset of weakness. Patient has a known history of renal failure secondary to nephrectomy and renal cancer. She is on home peritoneal dialysis. Patient had watery diarrhea for several days prior to presenting to the emergency room. Patient was found to be hyperkalemic with elevated liver enzymes. Cardiology has been consulted for new onset of atrial fibrillation. Nursing staff had difficulty with peritoneal dialysis overnight. Patient's heart rates continue to elevate and she required more vasopressor support. This morning patient was noted to have bleeding out of her peritoneal dialysis port as well as right upper extremity DVT. Concern for HIT, therefore the heparin has been discontinued. CT scan of the chest abdomen and pelvis shows possible RV thrombus and clot in right atrial appendage. Patient was interviewed and examined resting in bed. No labored breathing and she denies any current chest pain. She does report discomfort in her right arm. GENERAL: Ill-appearing, well-nourished and in no acute distress. NECK: Supple without JVD or thyromegaly. LUNGS: Breath sounds diminished to auscultation bilaterally. Respiration equal and unlabored. No wheezes, rales or rhonchi. HEART: Irregular rate and rhythm without murmurs, rubs or gallops. S1 and S2 heard. EXTREMITIES: Normal range of motion, no edema. No clubbing or cyanosis. Peripheral pulses intact and strong. Swelling noted in right upper extremity with discoloration. TELEMETRY: Atrial fibrillation with heart rates in the low 100s to 1 teens LABS: WBC 8.4, hemoglobin 13.1, hematocrit 42.5, platelet 42, sodium 133, potassium 4.9, BUN 75, creatinine 5.74, AST 3643, ALT 3206 IMPRESSION: A-fib with RVR, new onset Cardiomyopathy, EF 20%, possible RV thrombus Elevated troponins, flat trend, in the setting of hyperkalemia and renal failure Thrombocytopenia Right upper extremity DVT Valvular heart disease, moderate MR Elevated liver enzymes End-stage renal disease, on peritoneal dialysis PLAN: Agree with holding heparin until HIT panel results Agree with hematology referral Do not transition IV amiodarone to oral and continue Cardizem drip Further recommendations to be based upon clinical course. Prognosis is guarded I am dictating on behalf of Dr Jg Stuart's history/physical and assessment/plan. Objective - Vital Signs Vital signs: Vital Signs Temp 97.6 F 03/14/24 12:00 Pulse 83 03/14/24 17:00 Resp 22 03/14/24 20:00 BP 65/35 03/14/24 17:00 Pulse Ox 92 L 03/14/24 17:00 FiO2 Intake & Output 03/14/24 03/14/24 03/15/24 06:59 18:59 06:59 Intake Total 2575.925 1216.312 Output Total 0 0 0 Balance 0117.045 2578.312 0 Weight 76.1 kg Intake: IV 917 675 Amiodarone 450 mg In 17 Dextrose 5% in Water 250 ml @ 0.5 MG/MIN 16.667 mls/hr IV .Q15H RICO Rx#: [id number] Dextrose 5% in Water 1, 900 675 000 ml @ 75 mls/hr IV . [id number] RICO with Sodium Bicarb (1 Meq/ml) 150 ml Rx#:[id number] Intake, IV Titration 1039.762 625.312 Amount Amiodarone 450 mg In 250 242.227 Dextrose 5% in Water 250 ml @ 0.5 MG/MIN 16.667 mls/hr IV .Q15H RICO Rx#: [id number] Heparin Sod,Pork in 0.45% 132.45 NaCl 25,000 unit In 0.45 % NaCl 1 250ml.bag @ 12 UNITS/KG/HR 7.947 mls/hr IV .Q24H RICO Rx#: [id number] Morphine Sulfate (100 mg/ 0.663 2 ml) 100 mg In Sodium Chloride 0.9% 100 ml @ 1 MG/HR 1.02 mls/hr IV . Q24H RICO Rx#:[id number] Norepinephrine 4 mg In 657.312 382.422 Sodium Chloride 0.9% 250 ml @ 0.35 MCG/KG/MIN 85. 344 mls/hr IV .Q2H59M RICO Rx#:[id number] Oral 200 Output: Urine 0 0 0 Other: Voiding Method Indwelling Catheter Indwelling Catheter Indwelling Catheter CAPD CAPD CAPD - Labs CBC & Chem 7: 03/14/24 04:35 03/14/24 04:35 Labs: Abnormal Lab Results - Last 24 Hours (Table) 03/14/24 03/14/24 03/14/24 Range/Units 00:46 04:35 04:35 MCV 102.7 H (80.0-100.0) fL MCHC 30.9 L (31.0-37.0) g/dL RDW 16.1 H (11.5-15.5) % Plt Count 42 L (150-450) k/uL Lymphocytes # (Manual) 0.25 L (1.0-4.8) k/uL Nucleated RBCs 60 H (0-0) /100 WBC APTT (22.0-30.0) sec Sodium 133 L (137-145) mmol/L Carbon Dioxide 21 L (22-30) mmol/L BUN 75 H (7-17) mg/dL Creatinine 5.74 H (0.52-1.04) mg/dL Glucose 121 H (74-99) mg/dL POC Glucose (mg/dL) 134 H (70-110) mg/dL Calcium 7.5 L (8.4-10.2) mg/dL Total Bilirubin (0.2-1.3) mg/dL Delta Bilirubin (0.0-0.2) mg/dL AST (14-36) U/L ALT (4-34) U/L Total Protein (6.3-8.2) g/dL Albumin (3.5-5.0) g/dL 03/14/24 03/14/24 Range/Units 04:35 04:35 MCV (80.0-100.0) fL MCHC (31.0-37.0) g/dL RDW (11.5-15.5) % Plt Count (150-450) k/uL Lymphocytes # (Manual) (1.0-4.8) k/uL Nucleated RBCs (0-0) /100 WBC APTT 60.6 H (22.0-30.0) sec Sodium (137-145) mmol/L Carbon Dioxide (22-30) mmol/L BUN (7-17) mg/dL Creatinine (0.52-1.04) mg/dL Glucose (74-99) mg/dL POC Glucose (mg/dL) (70-110) mg/dL Calcium (8.4-10.2) mg/dL Total Bilirubin 1.9 H (0.2-1.3) mg/dL Delta Bilirubin 1.3 H (0.0-0.2) mg/dL AST 3643 H (14-36) U/L ALT 3206 H (4-34) U/L Total Protein 4.3 L (6.3-8.2) g/dL Albumin 2.3 L (3.5-5.0) g/dL Microbiology - Last 24 Hours (Table) 03/13/24 11:11 Blood Culture - Preliminary Blood 03/13/24 09:55 Urine Culture - Final Urine,Voided 03/13/24 05:22 Gram Stain - Preliminary Peritoneal Fluid Body Fluid Culture - Preliminary
--- NOTE | 2024-03-14 22:57 | P.PN ---
Subjective Patient is a pleasant 79 years old female with past medical history of end-stage renal disease on peritoneal dialysis daily. She follows up with Dr. Lynne. Patient presents because of semiwatery diarrhea for 2 days, she has 2 bowel movements per day with no blood No overt abdominal pain but she complains from pain in her right shoulder and lower back for the last 3 days. No history of trauma She feels very lightheaded and she has to lie down She denies chest pain dyspnea or coughing She denies dizziness weakness or numbness She is complaining from cough with yellow phlegm but no dyspnea No dysuria or urgency She denies smoking alcohol or illicit drugs Vitals showing tachycardia with heart rate around 125, blood pressure 1 110/83. Patient is afebrile Her WBC 13.5, hemoglobin 14.5, platelet count 171 Potassium 6.3 and creatinine 6.0 AST 3488 and ALT 2687, bilirubin is 1.6. INR is 2.0 Troponin is mildly elevated at 0.17, proBNP is elevated [id number] Hepatitis panel was requested and is pending. Chest x-ray is as negative for acute process and reviewed by myself and agree with the findings EKG shows sinus tachycardia at [address]-T changes but there is poor R wave progression 03/12 Patient awake alert looks a pleasant and relaxed sitting up in chair. She still complaining from right shoulder pain and right back pain at the same liver of the right upper quadrant. This could be referred pain from her liver disease. She rated as 7/10. She takes Ultram at home and she required at the dose of 50 mg as lower doses does not work for it. No nausea vomiting. She feels hungry. She did not have bowel movement since admission where she had diarrhea for 2 days prior to hospitalization. Patient also with 3+ bilateral pitting leg edema. Patient stated that it was worse over the last 3 days. She is on Lasix 80 mg daily at home. No signs of bleeding. Monitor INR No chest pain, no dyspnea Vitals look stable Labs from today are pending Tylenol level was checked and it was low Liver ultrasound reviewed by myself showing unremarkable findings. Hold Tylenol, Lipitor, Pepcid for possible liver adverse effect Echocardiogram still pending. 03/13 Patient became hypotensive more overnight and she was transferred to the ICU, she received IV boluses of normal saline This morning she was seen in the ICU she was tired and lethargic but awake. Mildly tachypneic denies any chest pain or dyspnea. Lactic acid is also elevated Echocardiogram showed ejection fraction 20% with global hypokinesia Liver enzymes are trending down Urinalysis is abnormal, but suspicion of infection is not confirmed. CT of the abdomen and pelvis with IV contrast ordered showing anasarca Intracardiac thrombus Patient already started on heparin drip and amiodarone drip for his A-fib and RVR 03/14 Patient is started looking, mildly confused but she can understand and have appropriate conversation Patient informs with the new findings of thrombus in the right ventricle. Heparin drip was started yesterday for A-fib. This morning heparin drip is put on hold. Patient has worsening thrombocytopenia Also she has right arm swelling with ultrasound preliminary results showing p ositive for thrombosis, because of concerns of the clotting dialysis peritoneal dialysis catheter, peritoneal dialysis is held. Per surgery team they recommended IV contrast to repeat with abdominal contrast, however will need to secure another IV access for dialysis, discussed with nephrology team and it is okay to consult vascular surgery team after they discussed with general surgery and. There is also suspicion of DIC with thrombosis and bleeding. Liver enzymes elevated again. Wildlife Enforcement Major had recommended to continue amiodarone Infectious disease consult on the case and they recommended ceftriaxone which was started Prognosis remains guarded given multiple organ affected with the liver failure, renal failure, heart failure probably collecting system failure. As per staff family made the patient DNR and they are considering comfort care measures Active Medications Generic Name Dose Route Start Last Admin Trade Name Freq PRN Reason Stop Dose Admin Atropine Sulfate 2 drops 03/14/24 10:24 03/14/24 15:30 Atropine Ophth Soln 1% 5ml Btl SUBLINGUAL 2 drops Q4HR PRN Administration Excess Secretions Calcitriol 0.5 mcg 03/14/24 07:39 03/14/24 12:28 Calcitriol 0.25 Mcg Cap PO Not Given MOFR RICO Calcium Acetate 667 mg 03/12/24 17:30 03/14/24 17:19 Calcium Acetate 667 Mg Tab PO Not Given BID-W/MEALS RICO Ergocalciferol 1,250 mcg 03/17/24 09:00 Ergocalciferol 1,250 Mcg (50,000 Iu) Capsule PO Q30D RICO Heparin Sodium (Porcine) 0 unit 03/12/24 22:35 Heparin Sodium 1,000 Un/Ml (10ml Vl) IV PER PROTOCOL PRN Low PTT Protocol Ceftriaxone Sodium 1 gm/ 50 mls @ 100 mls/hr 03/14/24 09:00 03/14/24 12:28 Sodium Chloride IVPB Not Given Q24HR RICO Protocol Morphine Sulfate 100 mg/ 102 mls @ 1.02 mls/hr 03/14/24 10:30 03/14/24 16:05 Sodium Chloride IV 2 mg/hr .Q24H RICO 2.04 mls/hr Titration Protocol 1 MG/HR Mirtazapine 15 mg 03/12/24 21:00 03/14/24 21:41 Mirtazapine 15 Mg Tab PO Not Given HS RICO Morphine Sulfate 2 mg 03/14/24 10:24 Morphine Sulfate 2 Mg/Ml Syringe IV Q15M PRN Breakthrough Pain Morphine Sulfate 4 mg 03/14/24 10:24 Morphine Sulfate 4 Mg/Ml Syringe IV Q15M PRN Breakthrough Pain Multivit/Ca Carb/B Cmplx/FA/Prenat 1 each 03/12/24 09:00 03/14/24 12:28 Folic Acid-Vit B Complex-Vit C 1 Cap PO Not Given DAILY [facility] Naloxone HCl 0.2 mg 03/13/24 05:46 Naloxone 0.4 Mg/Ml 1 Ml Vial IV Q2M PRN Opioid Reversal Pantoprazole Sodium 40 mg 03/13/24 09:00 03/14/24 12:28 Pantoprazole 40 Mg/10 Ml Vial IV Not Given DAILY [facility] Paroxetine HCl 20 mg 03/12/24 09:00 03/14/24 12:29 Paroxetine 20 Mg Tab PO Not Given DAILY [facility] Scopolamine 1 patch 03/14/24 11:00 03/14/24 15:27 Scopolamine 1 Mg/72 Hr Patch TRANSDERM 1 patch Q72H RICO Administration Tramadol HCl 50 mg 03/12/24 07:51 03/14/24 12:42 Tramadol 50 Mg Tab PO 50 mg QID PRN Administration Pain Objective - Vital Signs Vital signs: Vital Signs Temp 97.5 F L 03/14/24 08:00 Pulse 90 03/14/24 10:00 Resp 21 03/14/24 10:00 BP 98/65 03/14/24 10:00 Pulse Ox 90 L 03/14/24 10:00 FiO2 Intake & Output 03/13/24 03/14/24 03/14/24 18:59 06:59 18:59 Intake Total 4136.108 5875.762 300 Output Total 15 0 0 Balance 4571.906 0576.762 300 Weight 76.1 kg Intake: IV 536 917 300 Amiodarone 450 mg In 136 17 Dextrose 5% in Water 250 ml @ 0.5 MG/MIN 16.667 mls/hr IV .Q15H RICO Rx#: [id number] Calcium Gluconate in NaCl 100 1 gm In Saline 1 100ml. bag @ 400 mls/hr IVPB ONCE ONE Rx#:[id number] Dextrose 5% in Water 1, 300 900 300 000 ml @ 75 mls/hr IV . [id number] RICO with Sodium Bicarb (1 Meq/ml) 150 ml Rx#:[id number] Intake, IV Titration 382.068 3662.762 Amount Amiodarone 450 mg In 250 Dextrose 5% in Water 250 ml @ 0.5 MG/MIN 16.667 mls/hr IV .Q15H RICO Rx#: [id number] Calcium Gluconate in NaCl 40 1 gm In Saline 1 100ml. bag @ 400 mls/hr IVPB ONCE ONE Rx#:[id number] Heparin Sod,Pork in 0.45% 105.563 132.45 NaCl 25,000 unit In 0.45 % NaCl 1 250ml.bag @ 12 UNITS/KG/HR 7.947 mls/hr IV .Q24H RICO Rx#: [id number] Norepinephrine 4 mg In 719.572 657.312 Sodium Chloride 0.9% 250 ml @ 0.35 MCG/KG/MIN 85. 344 mls/hr IV .Q2H59M RICO Rx#:[id number] Output: Urine 15 0 0 Other: Voiding Method Indwelling Catheter Indwelling Catheter Indwelling Catheter CAPD CAPD - Exam GENERAL: The patient is alert and oriented x3, not in any acute distress. Well developed, well nourished. HEENT: Pupils are round and equally reacting to light. EOMI. No scleral icterus. No conjunctival pallor. Normocephalic, atraumatic. No pharyngeal erythema. No thyromegaly. CARDIOVASCULAR: S1 and S2 present. No murmurs, rubs, or gallops. PULMONARY: Chest is clear to auscultation, no wheezing , no crackles. ABDOMEN: Soft, nontender, nondistended, normoactive bowel sounds. No palpable or ganomegaly. MUSCULOSKELETAL: No joint swelling or deformity. -EXTREMITIES: No cyanosis, clubbing, bilateral 3+ pitting leg edema. NEUROLOGICAL: Gross neurological examination did not reveal any focal deficits. SKIN: No rashes. no petechiae. - Labs CBC & Chem 7: 03/14/24 04:35 03/14/24 04:35 Labs: Abnormal Lab Results - Last 24 Hours (Table) 03/13/24 03/13/24 03/13/24 Range/Units 06:17 09:55 11:11 MCV (80.0-100.0) fL MCHC (31.0-37.0) g/dL RDW (11.5-15.5) % Plt Count (150-450) k/uL Lymphocytes # (Manual) (1.0-4.8) k/uL Nucleated RBCs (0-0) /100 WBC APTT (22.0-30.0) sec Sodium (137-145) mmol/L Carbon Dioxide 17 L (22-30) mmol/L BUN 78 H (7-17) mg/dL Creatinine 6.72 H (0.52-1.04) mg/dL Glucose 109 H (74-99) mg/dL POC Glucose (mg/dL) (70-110) mg/dL Calcium 8.0 L (8.4-10.2) mg/dL Total Bilirubin (0.2-1.3) mg/dL Delta Bilirubin (0.0-0.2) mg/dL AST (14-36) U/L ALT (4-34) U/L Total Protein (6.3-8.2) g/dL Albumin (3.5-5.0) g/dL Cortisol 35.1 H (3.1-22.4) UG/DL Urine Appearance Cloudy H (Clear) Urine Protein 2+ H (Negative) Urine Blood Trace H (Negative) Urine Bilirubin 1+ H (Negative) Ur Leukocyte Esterase Moderate H (Negative) Urine RBC 6 H (0-5) /hpf Urine WBC 16 H (0-5) /hpf Urine Bacteria Rare H (None) /hpf Urine Mucus Rare H (None) /hpf Urine Yeast (Budding) Few H (None) /hpf 03/13/24 03/13/24 03/14/24 Range/Units 16:12 18:56 00:46 MCV (80.0-100.0) fL MCHC (31.0-37.0) g/dL RDW (11.5-15.5) % Plt Count (150-450) k/uL Lymphocytes # (Manual) (1.0-4.8) k/uL Nucleated RBCs (0-0) /100 WBC APTT 60.6 H (22.0-30.0) sec Sodium (137-145) mmol/L Carbon Dioxide (22-30) mmol/L BUN (7-17) mg/dL Creatinine (0.52-1.04) mg/dL Glucose (74-99) mg/dL POC Glucose (mg/dL) 137 H 134 H (70-110) mg/dL Calcium (8.4-10.2) mg/dL Total Bilirubin (0.2-1.3) mg/dL Delta Bilirubin (0.0-0.2) mg/dL AST (14-36) U/L ALT (4-34) U/L Total Protein (6.3-8.2) g/dL Albumin (3.5-5.0) g/dL Cortisol (3.1-22.4) UG/DL Urine Appearance (Clear) Urine Protein (Negative) Urine Blood (Negative) Urine Bilirubin (Negative) Ur Leukocyte Esterase (Negative) Urine RBC (0-5) /hpf Urine WBC (0-5) /hpf Urine Bacteria (None) /hpf Urine Mucus (None) /hpf Urine Yeast (Budding) (None) /hpf 03/14/24 03/14/24 03/14/24 Range/Units 04:35 04:35 04:35 MCV 102.7 H (80.0-100.0) fL MCHC 30.9 L (31.0-37.0) g/dL RDW 16.1 H (11.5-15.5) % Plt Count 42 L (150-450) k/uL Lymphocytes # (Manual) 0.25 L (1.0-4.8) k/uL Nucleated RBCs 60 H (0-0) /100 WBC APTT 60.6 H (22.0-30.0) sec Sodium 133 L (137-145) mmol/L Carbon Dioxide 21 L (22-30) mmol/L BUN 75 H (7-17) mg/dL Creatinine 5.74 H (0.52-1.04) mg/dL Glucose 121 H (74-99) mg/dL POC Glucose (mg/dL) (70-110) mg/dL Calcium 7.5 L (8.4-10.2) mg/dL Total Bilirubin (0.2-1.3) mg/dL Delta Bilirubin (0.0-0.2) mg/dL AST (14-36) U/L ALT (4-34) U/L Total Protein (6.3-8.2) g/dL Albumin (3.5-5.0) g/dL Cortisol (3.1-22.4) UG/DL Urine Appearance (Clear) Urine Protein (Negative) Urine Blood (Negative) Urine Bilirubin (Negative) Ur Leukocyte Esterase (Negative) Urine RBC (0-5) /hpf Urine WBC (0-5) /hpf Urine Bacteria (None) /hpf Urine Mucus (None) /hpf Urine Yeast (Budding) (None) /hpf // Range/Units 04:35 MCV (80.0-100.0) fL MCHC (31.0-37.0) g/dL RDW (11.5-15.5) % Plt Count (150-450) k/uL Lymphocytes # (Manual) (1.0-4.8) k/uL Nucleated RBCs (0-0) /100 WBC APTT (22.0-30.0) sec Sodium (137-145) mmol/L Carbon Dioxide (22-30) mmol/L BUN (7-17) mg/dL Creatinine (0.52-1.04) mg/dL Glucose (74-99) mg/dL POC Glucose (mg/dL) (70-110) mg/dL Calcium (8.4-10.2) mg/dL Total Bilirubin 1.9 H (0.2-1.3) mg/dL Delta Bilirubin 1.3 H (0.0-0.2) mg/dL AST 3643 H (14-36) U/L ALT 3206 H (4-34) U/L Total Protein 4.3 L (6.3-8.2) g/dL Albumin 2.3 L (3.5-5.0) g/dL Cortisol (3.1-22.4) UG/DL Urine Appearance (Clear) Urine Protein (Negative) Urine Blood (Negative) Urine Bilirubin (Negative) Ur Leukocyte Esterase (Negative) Urine RBC (0-5) /hpf Urine WBC (0-5) /hpf Urine Bacteria (None) /hpf Urine Mucus (None) /hpf Urine Yeast (Budding) (None) /hpf Microbiology - Last 24 Hours (Table) 03/13/24 05:22 Gram Stain - Preliminary Peritoneal Fluid Body Fluid Culture - Preliminary Assessment and Plan Assessment: Acute hepatitis, with coagulopathy and INR 2.0 on admission, worsening after the dictating but Elevated troponin, rule out cardiac disease. Differential diagnosis due to kidney disease and infection A-fib and RVR Thrombocytopenia Intracardiac thrombus Right upper extremity thrombosis Concern for DIC, disseminated intravascular coagulation Clotted peritoneal dialysis catheter End-stage renal disease on peritoneal dialysis with hyperkalemia present on admission Chronic CHF Hypertension Hyperlipidemia Osteoarthritis History of kidney cancer status post right nephrectomy History of B-cell lymphoma History of stroke Plan: Check hepatitis panel GI team consult No IV fluids Check for C. difficile. Very unlikely patient has C. difficile colitis Nephrology team consult Monitor potassium level Check echocardiogram is reviewed Continue with amiodarone drip and heparin drip Consider cardiology consult Several consultants on the case Continue with ceftriaxone Hematology team consult General surgery consult Labs and medication were reviewed.. Continue same treatment. Continue with symptomatic treatment. Resume home medication. Monitor labs and vitals. DVT and GI prophylaxis. Further recommendations as per clinical course of the patient DVT prophylaxis, on heparin drip GI Prophylaxis: Prognosis is guarded Patient was made DNR Family considering comfort care
[2024-03-15] MEDS: DESMOPRESSIN ACETATE 20 MCG in SODIUM CHLORIDE 0.9% 50 ML IVPB SCH (07:27)
--- NOTE | 2024-03-15 13:19 | P.PN ---
Subjective Progress Note Date: 03/15/24 79 years old female with past medical history of end-stage renal disease on peritoneal dialysis daily. She follows up with Dr. Lynne. Patient presents because of semiwatery diarrhea for 2 days, she has 2 bowel movements per day with no blood No overt abdominal pain but she complains from pain in her right shoulder and lower back for the last 3 days. No history of trauma She feels very lightheaded and she has to lie down She denies chest pain dyspnea or coughing She denies dizziness weakness or numbness She is complaining from cough with yellow phlegm but no dyspnea No dysuria or urgency She denies smoking alcohol or illicit drugs Vitals showing tachycardia with heart rate around 125, blood pressure 1 110/83. Patient is afebrile Her WBC 13.5, hemoglobin 14.5, platelet count 171 Potassium 6.3 and creatinine 6.0 AST 3488 and ALT 2687, bilirubin is 1.6. INR is 2.0 Troponin is mildly elevated at 0.17, proBNP is elevated [id number] Hepatitis panel was requested and is pending. Chest x-ray is as negative for acute process and reviewed by myself and agree with the findings EKG shows sinus tachycardia at [address]-T changes but there is poor R wave progression 03/12 Patient awake alert looks a pleasant and relaxed sitting up in chair. She still complaining from right shoulder pain and right back pain at the same liver of the right upper quadrant. This could be referred pain from her liver disease. She rated as 7/10. She takes Ultram at home and she required at the dose of 50 mg as lower doses does not work for it. No nausea vomiting. She feels hungry. She did not have bowel movement since admission where she had di arrhea for 2 days prior to hospitalization. Patient also with 3+ bilateral pitting leg edema. Patient stated that it was worse over the last 3 days. She is on Lasix 80 mg daily at home. No signs of bleeding. Monitor INR No chest pain, no dyspnea Vitals look stable Labs from today are pending Tylenol level was checked and it was low Liver ultrasound reviewed by myself showing unremarkable findings. Hold Tylenol, Lipitor, Pepcid for possible liver adverse effect Echocardiogram still pending. 03/13 Patient became hypotensive more overnight and she was transferred to the ICU, she received IV boluses of normal saline This morning she was seen in the ICU she was tired and lethargic but awake. Mildly tachypneic denies any chest pain or dyspnea. Lactic acid is also elevated Echocardiogram showed ejection fraction 20% with global hypokinesia Liver enzymes are trending down Urinalysis is abnormal, but suspicion of infection is not confirmed. CT of the abdomen and pelvis with IV contrast ordered showing anasarca Intracardiac thrombus Patient already started on heparin drip and amiodarone drip for his A-fib and RVR 03/14 Patient is started looking, mildly confused but she can understand and have appropriate conversation Patient informs with the new findings of thrombus in the right ventricle. Heparin drip was started yesterday for A-fib. This morning heparin drip is put on hold. Patient has worsening thrombocytopenia Also she has right arm swelling with ultrasound preliminary results showing positive for thrombosis, because of concerns of the clotting dialysis peritoneal dialysis catheter, peritoneal dialysis is held. Per surgery team they recommended IV contrast to repeat with abdominal contrast, however will need to secure another IV access for dialysis, discussed with nephrology team and it is okay to consult vascular surgery team after they discussed with general surgery and. There is also suspicion of DIC with thrombosis and bleeding. Liver enzymes elevated again. Music Sound Light Technician had recommended to continue amiodarone Infectious disease consult on the case and they recommended ceftriaxone which was started Prognosis remains guarded given multiple organ affected with the liver failure, renal failure, heart failure probably collecting system failure. As per staff family made the patient DNR and they are considering comfort care measures 03/15 : Family at bedside, patient comfort measures EXAM patient transition to comfort measures PHYSICAL EXAMINATION: GENERAL: Resting comfortably exam limited comfort measures family at bedside Assessment and Plan * transaminitis secondary to congestive hepatopathy * atrial fibrillation with rapid ventricle response * shock requiring norepinephrine * nonischemic cardiomyopathy with ejection fraction of 20% with valvular heart disease * end-stage renal disease on peritoneal dialysis * severe electrolyte abnormality including hyperkalemia * Thrombocytopenia * Intracardiac thrombus * Right upper extremity thrombosis * Concern for DIC, disseminated intravascular coagulation * Clotted peritoneal dialysis catheter * Hypertension * Hyperlipidemia * Osteoarthritis * History of kidney cancer status post right nephrectomy * History of B-cell lymphoma * History of stroke Plan: * consult obtained from nephrology, pulmonary critical care medicine, surgery * patient ultimately transition to comfort measures * . Previously on Rocephin however comfort orders in place Objective - Vital Signs Vital signs: Vital Signs Temp 97.6 F 03/14/24 12:00 Pulse 83 03/14/24 17:00 Resp 22 03/14/24 20:00 BP 65/35 03/14/24 17:00 Pulse Ox 92 L 03/14/24 17:00 FiO2 Intake & Output 03/14/24 03/15/24 03/15/24 18:59 06:59 18:59 Intake Total 1500.312 Output Total 0 15 Balance 1500.312 -15 Intake: IV 675 Dextrose 5% in Water 1, 675 000 ml @ 75 mls/hr IV . [id number] RICO with Sodium Bicarb (1 Meq/ml) 150 ml Rx#:[id number] Intake, IV Titration 625.312 Amount Amiodarone 450 mg In 242.227 Dextrose 5% in Water 250 ml @ 0.5 MG/MIN 16.667 mls/hr IV .Q15H RICO Rx#: [id number] Morphine Sulfate (100 mg/ 0.663 2 ml) 100 mg In Sodium Chloride 0.9% 100 ml @ 1 MG/HR 1.02 mls/hr IV . Q24H RICO Rx#:[id number] Norepinephrine 4 mg In 382.422 Sodium Chloride 0.9% 250 ml @ 0.35 MCG/KG/MIN 85. 344 mls/hr IV .Q2H59M RICO Rx#:[id number] Oral 200 Output: Urine 0 15 Other: Voiding Method Indwelling Catheter Indwelling Catheter Indwelling Catheter CAPD CAPD - Labs CBC & Chem 7: 03/14/24 04:35 03/14/24 04:35 Labs: Abnormal Lab Results - Last 24 Hours (Table) 03/14/24 Range/Units Unknown Procalcitonin 1.26 H (0.02-0.50) ng/mL Microbiology - Last 24 Hours (Table) 03/13/24 05:22 Gram Stain - Preliminary Peritoneal Fluid Body Fluid Culture - Preliminary 03/13/24 11:11 Blood Culture - Preliminary Blood 03/13/24 09:55 Urine Culture - Final Urine,Voided
--- NOTE | 2024-03-16 11:48 | P.PN ---
Subjective Progress Note Date: 03/16/24 79 years old female with past medical history of end-stage renal disease on peritoneal dialysis daily. She follows up with Dr. Lynne. Patient presents because of semiwatery diarrhea for 2 days, she has 2 bowel movements per day with no blood No overt abdominal pain but she complains from pain in her right shoulder and lower back for the last 3 days. No history of trauma She feels very lightheaded and she has to lie down She denies chest pain dyspnea or coughing She denies dizziness weakness or numbness She is complaining from cough with yellow phlegm but no dyspnea No dysuria or urgency She denies smoking alcohol or illicit drugs Vitals showing tachycardia with heart rate around 125, blood pressure 1 110/83. Patient is afebrile Her WBC 13.5, hemoglobin 14.5, platelet count 171 Potassium 6.3 and creatinine 6.0 AST 3488 and ALT 2687, bilirubin is 1.6. INR is 2.0 Troponin is mildly elevated at 0.17, proBNP is elevated [id number] Hepatitis panel was requested and is pending. Chest x-ray is as negative for acute process and reviewed by myself and agree with the findings EKG shows sinus tachycardia at [address]-T changes but there is poor R wave progression 03/12 Patient awake alert looks a pleasant and relaxed sitting up in chair. She still complaining from right shoulder pain and right back pain at the same liver of the right upper quadrant. This could be referred pain from her liver disease. She rated as 7/10. She takes Ultram at home and she required at the dose of 50 mg as lower doses does not work for it. No nausea vomiting. She feels hungry. She did not have bowel movement since admission where she had di arrhea for 2 days prior to hospitalization. Patient also with 3+ bilateral pitting leg edema. Patient stated that it was worse over the last 3 days. She is on Lasix 80 mg daily at home. No signs of bleeding. Monitor INR No chest pain, no dyspnea Vitals look stable Labs from today are pending Tylenol level was checked and it was low Liver ultrasound reviewed by myself showing unremarkable findings. Hold Tylenol, Lipitor, Pepcid for possible liver adverse effect Echocardiogram still pending. 03/13 Patient became hypotensive more overnight and she was transferred to the ICU, she received IV boluses of normal saline This morning she was seen in the ICU she was tired and lethargic but awake. Mildly tachypneic denies any chest pain or dyspnea. Lactic acid is also elevated Echocardiogram showed ejection fraction 20% with global hypokinesia Liver enzymes are trending down Urinalysis is abnormal, but suspicion of infection is not confirmed. CT of the abdomen and pelvis with IV contrast ordered showing anasarca Intracardiac thrombus Patient already started on heparin drip and amiodarone drip for his A-fib and RVR 03/14 Patient is started looking, mildly confused but she can understand and have appropriate conversation Patient informs with the new findings of thrombus in the right ventricle. Heparin drip was started yesterday for A-fib. This morning heparin drip is put on hold. Patient has worsening thrombocytopenia Also she has right arm swelling with ultrasound preliminary results showing positive for thrombosis, because of concerns of the clotting dialysis peritoneal dialysis catheter, peritoneal dialysis is held. Per surgery team they recommended IV contrast to repeat with abdominal contrast, however will need to secure another IV access for dialysis, discussed with nephrology team and it is okay to consult vascular surgery team after they discussed with general surgery and. There is also suspicion of DIC with thrombosis and bleeding. Liver enzymes elevated again. Broker In Charge had recommended to continue amiodarone Infectious disease consult on the case and they recommended ceftriaxone which was started Prognosis remains guarded given multiple organ affected with the liver failure, renal failure, heart failure probably collecting system failure. As per staff family made the patient DNR and they are considering comfort care measures 03/15 : Family at bedside, patient comfort measures 03/16: Patient remains comfort measures EXAM patient transition to comfort measures PHYSICAL EXAMINATION: GENERAL: Resting comfortably exam limited comfort measures family at bedside Assessment and Plan * transaminitis secondary to congestive hepatopathy * atrial fibrillation with rapid ventricle response * shock requiring norepinephrine * nonischemic cardiomyopathy with ejection fraction of 20% with valvular heart disease * end-stage renal disease on peritoneal dialysis * severe electrolyte abnormality including hyperkalemia * Thrombocytopenia * Intracardiac thrombus * Right upper extremity thrombosis * Concern for DIC, disseminated intravascular coagulation * Clotted peritoneal dialysis catheter * Hypertension * Hyperlipidemia * Osteoarthritis * History of kidney cancer status post right nephrectomy * History of B-cell lymphoma * History of stroke Plan: * consult obtained from nephrology, pulmonary critical care medicine, surgery * patient ultimately transition to comfort measures * . Previously on Rocephin however comfort orders in place Objective - Vital Signs Vital signs: Vital Signs Temp 97.6 F 03/14/24 12:00 Pulse 83 03/14/24 17:00 Resp 22 03/14/24 20:00 BP 65/35 03/14/24 17:00 Pulse Ox 92 L 03/14/24 17:00 FiO2 Intake & Output 03/15/24 03/16/24 03/16/24 18:59 06:59 18:59 Intake Total 54.502 21.114 Output Total 25 Balance 54.502 -3.886 Intake: Intake, IV Titration 54.502 21.114 Amount Morphine Sulfate (100 mg/ 54.502 21.114 2 ml) 100 mg In Sodium Chloride 0.9% 100 ml @ 1 MG/HR 1.02 mls/hr IV . Q24H [facility] Rx#:[id number] Output: Urine 25 Other: Voiding Method Indwelling Catheter Indwelling Catheter Indwelling Catheter - Labs CBC & Chem 7: 03/14/24 04:35 03/14/24 04:35 Labs: Microbiology - Last 24 Hours (Table) 03/13/24 05:22 Gram Stain - Preliminary Peritoneal Fluid Body Fluid Culture - Preliminary 03/13/24 11:11 Blood Culture - Preliminary Blood
--- NOTE | 2024-03-16 17:02 | P.DS ---
Providers Date of admission: 03/11/24 19:09 Expected date of discharge: 03/16/24 Attending physician: Richy Garvin MD Consults: 03/11/24 18:49 Consult Physician Urgent Consulting Provider: Rach Conley Consult Reason/Comments: acute hepatitis , high INR Do you want consulting provider notified?: Yes 03/11/24 19:17 Consult Physician Routine Consulting Provider: Anne Giraldo Consult Reason/Comments: ESRD on PD Do you want consulting provider notified?: Yes 03/12/24 11:43 Consult Physician Routine Consulting Provider: Sariah Alarcon Consult Reason/Comments: high troponin, tachycardia Do you want consulting provider notified?: Yes 03/13/24 04:30 Consult Physician Urgent Consulting Provider: Estuardo Galindo Consult Reason/Comments: hypotensive, new afib, ICU? Do you want consulting provider notified?: Yes 03/14/24 04:59 Consult Physician Urgent Consulting Provider: Maldonado Sheikh Consult Reason/Comments: Pt. PD catheter draining blood. Do you want consulting provider notified?: Already Contacted 03/14/24 08:33 Consult Physician Routine Consulting Provider: Adithya Casper Consult Reason/Comments: uti , other Do you want consulting provider notified?: Already Contacted Primary care physician: [facility] Course: 79 years old female with past medical history of end-stage renal disease on peritoneal dialysis daily. She follows up with Dr. Lynne. Patient presents because of semiwatery diarrhea for 2 days, she has 2 bowel movements per day with no blood No overt abdominal pain but she complains from pain in her right shoulder and lower back for the last 3 days. No history of trauma She feels very lightheaded and she has to lie down She denies chest pain dyspnea or coughing She denies dizziness weakness or numbness She is complaining from cough with yellow phlegm but no dyspnea No dysuria or urgency She denies smoking alcohol or illicit drugs Vitals showing tachycardia with heart rate around 125, blood pressure 1 110/83. Patient is afebrile Her WBC 13.5, hemoglobin 14.5, platelet count 171 Potassium 6.3 and creatinine 6.0 AST 3488 and ALT 2687, bilirubin is 1.6. INR is 2.0 Troponin is mildly elevated at 0.17, proBNP is elevated [id number] Hepatitis panel was requested and is pending. Chest x-ray is as negative for acute process and reviewed by myself and agree with the findings EKG shows sinus tachycardia at [address]-T changes but there is poor R wave progression 03/12 Patient awake alert looks a pleasant and relaxed sitting up in chair. She still complaining from right shoulder pain and right back pain at the same liver of the right upper quadrant. This could be referred pain from her liver disease. She rated as 7/10. She takes Ultram at home and she required at the dose of 50 mg as lower doses does not work for it. No nausea vomiting. She feels hungry. She did not have bowel movement since admission where she had diarrhea for 2 days prior to hospitalization. Patient also with 3+ bilateral pitting leg edema. Patient stated that it was worse over the last 3 days. She is on Lasix 80 mg daily at home. No signs of bleeding. Monitor INR No chest pain, no dyspnea Vitals look stable Labs from today are pending Tylenol level was checked and it was low Liver ultrasound reviewed by myself showing unremarkable findings. Hold Tylenol, Lipitor, Pepcid for possible liver adverse effect Echocardiogram still pending. 03/13 Patient became hypotensive more overnight and she was transferred to the ICU, she received IV boluses of normal saline This morning she was seen in the ICU she was tired and lethargic but awake. Mildly tachypneic denies any chest pain or dyspnea. Lactic acid is also elevated Echocardiogram showed ejection fraction 20% with global hypokinesia Liver enzymes are trending down Urinalysis is abnormal, but suspicion of infection is not confirmed. CT of the abdomen and pelvis with IV contrast ordered showing anasarca Intracardiac thrombus Patient already started on heparin drip and amiodarone drip for his A-fib and RVR 03/14 Patient is started looking, mildly confused but she can understand and have appropriate conversation Patient informs with the new findings of thrombus in the right ventricle. Heparin drip was started yesterday for A-fib. This morning heparin drip is put on hold. Patient has worsening thrombocytopenia Also she has right arm swelling with ultrasound preliminary results showing positive for thrombosis, because of concerns of the clotting dialysis peritoneal dialysis catheter, peritoneal dialysis is held. Per surgery team they recommended IV contrast to repeat with abdominal contrast, however will need to secure another IV access for dialysis, discussed with nephrology team and it is okay to consult vascular surgery team after they discussed with general surgery and. There is also suspicion of DIC with thrombosis and bleeding. Liver enzymes elevated again. Veneer Sawyer had recommended to continue amiodarone Infectious disease consult on the case and they recommended ceftriaxone which was started Prognosis remains guarded given multiple organ affected with the liver failure, renal failure, heart failure probably collecting system failure. As per staff family made the patient DNR and they are considering comfort care measures 03/15 : Family at bedside, patient comfort measures 03/16: Patient remains comfort measures, Assessment and Plan * transaminitis secondary to congestive hepatopathy * atrial fibrillation with rapid ventricle response * shock requiring norepinephrine * nonischemic cardiomyopathy with ejection fraction of 20% with valvular heart disease * end-stage renal disease on peritoneal dialysis * severe electrolyte abnormality including hyperkalemia * Thrombocytopenia * Intracardiac thrombus * Right upper extremity thrombosis * Concern for DIC, disseminated intravascular coagulation * Clotted peritoneal dialysis catheter * Hypertension * Hyperlipidemia * Osteoarthritis * History of kidney cancer status post right nephrectomy * History of B-cell lymphoma * History of stroke Plan: * consult obtained from nephrology, pulmonary critical care medicine, surgery * patient ultimately transition to comfort measures * Previously on Rocephin however comfort orders in place * 03/16/2024 Patient Condition at Discharge: Undetermined Plan - Discharge Summary New Discharge Prescriptions: Discontinued ALPRAZolam [Xanax] 0.25 mg PO BID PARoxetine [Paxil] 20 mg PO DAILY Simvastatin [Zocor] 40 mg PO HS traMADol HCL [Ultram] 50 mg PO BID Famotidine [Pepcid] 20 mg PO BID #60 tablet Potassium Chloride ER [K-Dur 20] 30 meq PO DAILY calcitrioL 0.5 mcg PO MOFR Folic Acid/Vit B Complex and C [Nephro-Shaunna Tablet] 0.8 mg PO DAILY Ergocalciferol [Vitamin D2 (1250 Mcg = 04066 Iu)] 1,250 mcg PO Q30D Acetaminophen Tab [Tylenol Tab] 500 mg PO Q6H PRN PRN Reason: Fever And/ Or Pain Mirtazapine [Remeron] 15 mg PO HS Furosemide [Lasix] 80 mg PO DAILY Calcium Acetate 667mg Capsule 667 mg PO BID-W/MEALS Discharge Disposition: - Preliminary Cause of Preliminary Cause of : ESRD, Liver Failure , Shock
[2024-03-17] MEDS ORDERED: ERGOCALCIFEROL 1,250 MCG (50,000 IU) CAPSULE PO SCH (09:00)
== END 2024-03-16 19:36 | disposition expired | DRG 441 ==
LOC: EC 12:48 → 1SOBS 19:09 → 3SCARD 21:05 → 2SICU 03-13 05:30 → 5NMEDONC 03-14 18:09
PROVIDERS: ADMIT Internal Medicine; ATTEND Internal Medicine
PROC: 3E033XZ Introduction of Vasopressor into Peripheral Vein, Percutaneous Approach (ICD-10-PCS; principal; 2024-03-14)
DX: K72.00 Acute and subacute hepatic failure without coma (principal); D65 Disseminated intravascular coagulation [defibrination syndrome]; I50.21 Acute systolic (congestive) heart failure; N18.6 End stage renal disease; E87.20 Acidosis, unspecified; I13.2 Hypertensive heart and chronic kidney disease with heart failure and with stage 5 chronic kidney disease, or end stage renal disease; I42.8 Other cardiomyopathies; S32.502A Unspecified fracture of left pubis, initial encounter for closed fracture; I82.621 Acute embolism and thrombosis of deep veins of right upper extremity; D68.4 Acquired coagulation factor deficiency; R57.9 Shock, unspecified; Z66 Do not resuscitate; Z51.5 Encounter for palliative care; K76.1 Chronic passive congestion of liver; I51.3 Intracardiac thrombosis, not elsewhere classified; T85.868A Thrombosis due to other internal prosthetic devices, implants and grafts, initial encounter; Z99.2 Dependence on renal dialysis; I48.91 Unspecified atrial fibrillation; F32.A Depression, unspecified; I08.1 Rheumatic disorders of both mitral and tricuspid valves; E78.5 Hyperlipidemia, unspecified; E87.5 Hyperkalemia; M89.8X9 Other specified disorders of bone, unspecified site; K21.9 Gastro-esophageal reflux disease without esophagitis; R82.90 Unspecified abnormal findings in urine; Z79.899 Other long term (current) drug therapy; Z85.528 Personal history of other malignant neoplasm of kidney; Z90.5 Acquired absence of kidney; Z86.73 Personal history of transient ischemic attack (TIA), and cerebral infarction without residual deficits; Z90.710 Acquired absence of both cervix and uterus; Z98.84 Bariatric surgery status; Z85.72 Personal history of non-Hodgkin lymphomas
CPT/HCPCS: 36415; 71045; 71046; 74177; 76705; 80048; 80053; 80074; 80076; 80143; 81001; 82533; 82550; 83605; 83735; 83880; 84100; 84132; 84145; 84439; 84443; 84484; 85025; 85610; 85730; 86645; 86665; 87040; 87070; 87086; 87205; 93005; 93306; 96374; 96375; 99285